=== PATIENT | female | born 1945 | race Caucasian/White ===

== ENCOUNTER 2023-09-11 18:28 | Emergency (ER) | payer MEDICARE, BC, SELFPAY ==
[2023-09-11 18:45] VITALS: BP 141/70; PULSE 83; RESP 24; TEMP 36.4; O2SAT 96; BMI 30.2
--- NOTE | 2023-09-11 19:01 | XR_ITS ---
Final Report Patient: QUAN LAGUNAS Facility:?[facility] Patient ID:?[id number] Site Patient ID:?[id number]. Site :?[id number] Study:?XRay Chest 2 VIEW-09/11/2023 7:17:03 PM Ordering Physician:JUAN ANTONIO Final Report: INDICATION: Cough, dyspnea. TECHNIQUE: Chest 2 views. COMPARISON: None. FINDINGS: Cardiovascular and mediastinum: Heart size and vasculature are normal in caliber and appearance. Lungs and pleural spaces: Bibasilar atelectasis. No sign of infiltrate or mass. No sign of pleural effusion. No pneumothorax. Bones and soft tissues: No significant findings. IMPRESSION: Bibasilar atelectasis. Otherwise, no acute or significant findings. Dictated by Tc Lorenzo MD @ 09/11/2023 7:32:47 PM (Electronic Signature)
--- NOTE | 2023-09-11 19:59 | ED_ITS ---
HPI - General Adult General Chief complaint: Shortness of Breath/Dyspnea Stated complaint: shortness of breath, low oxygen Time Seen by Provider: 09/11/23 19:45 History of Present Illness HPI narrative: This 78-year-old female comes in with 2 other family members. She does live alone and states that she has had a cough for the past 10 years or so but in the last month it has become significantly worse. She arrives with normal vital signs and oximetry at 96% on room air. She reports keep getting coughing fits at which time her oximetry at home reduce is down into the 70s%. She does not report any fevers. She does occasionally cough up some whitish sputum. 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 She is not a smoker. She has been taking albuterol but is not on any other breathing medications. She states that the albuterol makes her cough but then it does seem to help for a while but does not last very long. She does have an appointment with a social media project manager in about 3 days. Related Data Home Medications Medication Instructions Recorded Confirmed albuterol sulfate 90 mcg/actuation inhalation 09/11/23 aerosol inhaler (Ventolin HFA) atorvastatin 40 mg tablet 40 mg PO DAILY 09/11/23 09/11/23 hydrochlorothiazide 25 mg tablet 25 mg PO DAILY 09/11/23 09/11/23 losartan 25 mg tablet 25 mg PO DAILY 09/11/23 09/11/23 losartan 50 mg tablet 50 mg PO DAILY 09/11/23 09/11/23 omeprazole 10 mg capsule,delayed 10 mg PO DAILY 09/11/23 09/11/23 release prednisolone acetate 1 % eye drp ophthalmic (eye) 09/11/23 drops,suspension trazodone 50 mg tablet 100 mg PO QPM PRN 09/11/23 09/11/23 Previous Rx's Medication Instructions Recorded acetaminophen 300 mg-codeine 30 mg 1 tab PO Q6H PRN pain #20 tabs 09/11/23 tablet azithromycin 250 mg tablet 250 mg PO DAILY #6 tabs 09/11/23 (Zithromax Z-Bay) methylprednisolone 4 mg tablets in See Rx Instructions PO .COMPLEX 09/11/23 a dose pack (Medrol (Bay)) #21 ea Review of Systems Status of ROS: Reports: 10 or more systems reviewed and unremarkable except as noted in History and below Narrative: Constitutional: No fevers, no weight gain or loss. Eyes: No discharge. No vision changes. HENT: No congestion, no sore throat, no ear pain. Cardiovascular: No chest pain, no palpitations. Respiratory: Coughing fits with associated shortness of breath. Gastrointestinal: No abdominal pain, no vomiting, no diarrhea. Genitourinary: No dysuria, no hematuria. Musculoskeletal: Normal range of motion. Skin: No rashes, no pruritis. Neurological: No dizziness, weakness, sensory change, speech change. Endo/Heme/Allergies: No bruising or bleeding. No polydipsia. Pysch: no suicidality, no anxiety, no insomnia. All other systems reviewed and are negative. PFSH [facility] Social History Smoking Status: Never smoker Do you use any of these nicotine containing products: None Second hand tobacco smoke exposure: No How often do you have a drink containing alcohol: never How often do you have six or more drinks on one occasion: Never AUDIT-C Alcohol total score: 0 Non-prescribed substance use: denies use service: No Exam Narrative: Exam Narrative: Constitutional: Well-developed, well-nourished, no acute distress. HEENT: Normocephalic, atraumatic. Neck: Normal range of motion. Nontender. Supple. Heart: Regular. No murmurs. Normal rate. Intact distal pulses. Lungs: Clear to auscultation. No wheezes, rhonchi, or rales. Frequent nonproductive cough occurring pretty much every time she begins to talk. Abdomen: Normal bowel sounds. Nontender. No rebound tenderness. Genitalia: Deferred. Back: No midline tenderness. Normal range of motion. Extremities: Normal range of motion. No injury. Skin: Intact. No rash. Warm. No erythema or pallor. Neurologic: No altered sensation. No weakness. Alert and oriented. Psychiatric: No suicidality. No anxiety or depression. No insomnia. Nursing notes and vitals signs are reviewed. Const: Vital Signs, click to edit/add: Vital Signs - 24 hr 09/11/23 18:45 Temperature 97.6 F Pulse Rate [Pulse Oximeter] 83 Respiratory Rate 24 Blood Pressure [Ri ght Upper Arm] 141/70 H Pulse Oximetry 96 Oxygen Delivery Me thod Room Air Course Vital Signs Vital signs: Initial Vital Signs Temperature 97.6 F 09/11/23 18:45 Temperature Source Temporal Artery Scan 09/11/23 18:45 Pulse Rate 83 09/11/23 18:45 Pulse Rhythm Regular 09/11/23 18:45 Pulse Strength 3+ Normal 09/11/23 18:45 Respiratory Rate 24 09/11/23 18:45 Blood Pressure 141/70 H 09/11/23 18:45 Blood Pressure Mean 93 09/11/23 18:45 Blood Pressure Position Sitting 09/11/23 18:45 Pulse Oximetry 96 09/11/23 18:45 Oxygen Delivery Method Room Air 09/11/23 18:45 Vital Signs Temperature 97.6 F 09/11/23 18:45 Pulse Rate 83 09/11/23 18:45 Respiratory Rate 24 09/11/23 18:45 Blood Pressure 141/70 H 09/11/23 18:45 Pulse Oximetry 96 09/11/23 18:45 Oxygen Delivery Method Room Air 09/11/23 18:45 Temperature 97.6 F 09/11/23 18:45 Pulse Rate 83 09/11/23 18:45 Respiratory Rate 24 09/11/23 18:45 Blood Pressure 141/70 H 09/11/23 18:45 Pulse Oximetry 96 09/11/23 18:45 Oxygen Delivery Method Room Air 09/11/23 18:45 Medications Administered Medications: Discontinued Medications Generic Name Dose Route Start Last Admin Trade Name Freq PRN Reason Stop Dose Admin Albuterol/Ipratropium 1 neb 09/11/23 19:58 09/11/23 20:16 Iprat-Albut 0.5-2.5 Mg/3 Ml Neb IH 09/11/23 19:59 1 neb ONCE ONE Administration Dexamethasone 10 mg 09/11/23 19:58 09/11/23 20:16 Dexamethasone 10 Mg/Ml Inj PO 09/11/23 19:59 10 mg ONCE ONE Administration Medical Decision Making [facility] Narrative Medical decision making narrative: This 78-year-old female comes in with coughing fits causing hypoxia and short ness of breath. She does not report any fever. She does arrive with normal vital signs and her lung sounds are reassuring. She states that she does get some relief from her inhaler. She does have a spacer on her inhaler. She did receive a DuoNeb treatment which did bring more relief to her symptoms. She also received an oral dose of dexamethasone 10 mg. Chest x-ray shows no acute findings except for some bibasilar atelectasis. Lab results show a mild anemia but otherwise her lab results are mostly reassuring and nothing in need of immediate attention. The patient does have a follow-up appointment with a social media project manager in 3 days. I did prescribe a Medrol Dosepak and Tylenol 3 for cough suppressant. I encouraged her to use [id number] cough medicine also. She also received a prescription for Zithromax but I instructed her to hold this and consult with her social media project manager. Lab Data Labs: Lab Results 09/11/23 Range/Units 20:07 WBC 8.56 (4.50-11.00) K/uL RBC 4.59 (4.00-5.20) m/uL Hgb 10.4 L (12.0-16.0) gm/dL Hct 33.8 (33.0-51.0) % MCV 74 L (80-100) fL MCH 23 L (26-34) pg MCHC 31 L (32-36) gm/dL RDW Coeff of Benigno 17.6 H (11.5-15.5) % Plt Count 312 (140-440) K/uL Neut % (Auto) 81.0 H (42.0-72.0) % Lymph % (Auto) 9.1 L (20-44) % Nolan % (Auto) 7.9 (0.0-11.0) % Eos % (Auto) 0.7 (0.0-7.0) % Baso % (Auto) 0.5 (0.0-3.0) % Neut # (Auto) 6.90 (1.7-7.0) K/uL Lymph # (Auto) 0.80 L (0.90-2.90) K/uL Nolan # (Auto) 0.70 (0.00-0.90) K/UL Eos # (Auto) 0.06 (0.00-0.50) K/uL Baso # (Auto) 0.04 (0.00-0.30) K/uL Abs Immat Gran (auto) 0.07 (0.00-0.30) K/uL Imm/Tot Granulo (auto) 0.8 % Diff Slide Review Acceptable Review (Acceptable) VBG pH 7.456 H (7.32-7.43) VBG pCO2 33 L (40-50) mmHG VBG pO2 80.2 H (25-47) mmHG VBG HCO3 23 (21-28) mmol/L Sodium 131 L (135-149) mmol/L Potassium 3.9 (3.6-5.1) mmol/L Chloride 99 (96-114) mmol/L Carbon Dioxide 22 (20-32) mmol/L Anion Gap 10 (7-15) mEq/L BUN 15 (7-30) mg/dL Creatinine 1.0 (0.5-1.5) mg/dL Estimated Creat Clear 46.54 Estimated GFR 58 ml/min Glucose 103 (60-115) mg/dL Calcium 9.8 (8.4-10.6) mg/dL NT-Pro-B Natriuret Pep 130 pg/mL SARS-CoV-2 (PCR) Negative SARS-CoV-2 (Negative) Influenza Type A (PCR) Negative PCR FLU A (Negative) Influenza Type B (PCR) Negative PCR FLU B (Negative) RSV (PCR) Negative PCR RSV (Negative) Discharge Plan Discharge Clinical Impression: Asthma with acute exacerbation Patient Disposition: Home w/ Parent or Adult Condition: Improved Additional Instructions: Take medication as prescribed and needed. Follow up with social media project manager clinic as scheduled. Return if worsening. Prescriptions: New azithromycin [Zithromax Z-Bay] 250 mg tablet 250 mg PO DAILY Qty: 6 0RF acetaminophen-codeine 300-30 mg tablet 1 tab PO Q6H PRN (Reason: pain) Qty: 20 0RF methylprednisolone [Medrol (Bay)] 4 mg tablets,dose pack See Rx Instructions .ROUTE .COMPLEX Qty: 21 0RF Rx Instructions: orally per package directions No Action losartan 50 mg tablet 50 mg PO DAILY atorvastatin 40 mg tablet 40 mg PO DAILY trazodone 50 mg tablet 100 mg PO QPM PRN prednisolone acetate 1 % drops,suspension ophthalmic (eye) omeprazole 10 mg capsule,delayed release(DR/EC) 10 mg PO DAILY losartan 25 mg tablet 25 mg PO DAILY hydrochlorothiazide 25 mg tablet 25 mg PO DAILY albuterol sulfate [Ventolin HFA] 90 mcg/actuation HFA aerosol inhaler inhalation Follow Up/Referrals: Lety Ingram MD [Primary Care Provider] - Stand Alone Forms: [facility] Info Instructions
[2023-09-11] MEDS: dexAMETHasone 10 MG/ML inj PO (20:16)
[2023-09-11] MEDS: IPRAT-ALBUT 0.5-2.5 MG/3 ML NEB 1 NEB IH (20:16)
[2023-09-11 20:21] LABS: HCO3 VBG 23 mmol/L (21-28); PCO2 VBG 33 mmHG (40-50); PO2 VBG 80.2 mmHG (25-47); pH VBG 7.456 (7.32-7.43)
[2023-09-11 20:32] LABS: Basophils Absolute Auto 0.04 K/uL (0.00-0.30); Basophils Percent Auto 0.5 % (0.0-3.0); Eosinophils Absolute Auto 0.06 K/uL (0.00-0.50); Eosinophils Percent Auto 0.7 % (0.0-7.0); Hematocrit 33.8 % (33.0-51.0); Hemoglobin* 10.4 gm/dL (12.0-16.0); Immature Granulocytes Abs Auto 0.07 K/uL (0.00-0.30); Immature Granulocytes Pct Auto 0.8 %; Lymphocytes Percent Auto 9.1 % (20-44); Mean Corpuscular HGB Conc 31 gm/dL (32-36); Mean Corpuscular Hemoglobin 23 pg (26-34); Mean Corpuscular Volume 74 fL (80-100); Monocytes Percent Auto 7.9 % (0.0-11.0); Platelet Count* 312 K/uL (140-440); RDW Coefficient of Variation % 17.6 % (11.5-15.5); Red Blood Count 4.59 m/uL (4.00-5.20); White Blood Count* 8.56 K/uL (4.50-11.00)
[2023-09-11 20:36] LABS: Slide Review Reflex Yes
[2023-09-11 20:53] LABS: Slide Review Acceptable Review (Acceptable)
[2023-09-11 20:58] LABS: Chloride* 99 mmol/L (96-114); Potassium* 3.9 mmol/L (3.6-5.1); Sodium* 131 mmol/L (135-149)
[2023-09-11 21:00] LABS: Est. Creatinine Clearance* 46.54; Estimated Glomerular Filt Rate 58 ml/min
[2023-09-11 21:01] LABS: Blood Urea Nitrogen* 15 mg/dL (7-30); Calcium* 9.8 mg/dL (8.4-10.6); Carbon Dioxide* 22 mmol/L (20-32); Glucose* 103 mg/dL (60-115)
[2023-09-11 21:03] LABS: PCR FLU A Negative PCR FLU A (Negative); PCR FLU B Negative PCR FLU B (Negative); PCR RSV Negative PCR RSV (Negative); SARS PCR* Negative SARS-CoV-2 (Negative)
[2023-09-11 21:14] LABS: Anion Gap 10 mEq/L (7-15); NT Pro B Type NatriureticPept* 130 pg/mL
== END 2023-09-11 22:27 | disposition home or self-care (01) ==
PROVIDERS: Family Medicine; Emergency Provider Emergency Medicine Emergency Medical Services; PCP Family Medicine
DX: J45.901 Unspecified asthma with (acute) exacerbation (principal)
CPT/HCPCS: 36415; 71046; 80048; 82803; 83880; 85025; 87631; 94640; 99284; J1100

== ENCOUNTER 2023-11-14 17:30 | Outpatient (CLI) | payer MEDICARE, BC, SELFPAY | END 2023-11-14 17:31 | disposition home or self-care (01) | LOC: NFLDREF 11-15 06:18 | PROVIDERS: PCP Family Medicine; Referring Provider Family Medicine; Visit Provider Physician Assistant | DX: N39.0 Urinary tract infection, site not specified (principal); B96.4 Proteus (mirabilis) (morganii) as the cause of diseases classified elsewhere | CPT/HCPCS: 87086; 87186 ==

== ENCOUNTER 2024-01-03 13:09 | Emergency (ER) | payer MEDICARE, BC, SELFPAY ==
[2024-01-03] VITALS (17 sets, daily range): BP systolic 136–149; BP diastolic 69–85; PULSE 77–85; RESP 16–18; TEMP 36; O2SAT 96–100; BMI 32.1
--- NOTE | 2024-01-03 13:28 | ED.GENADULT ---
HPI - General Adult General Chief complaint: Chest Pain Stated complaint: UC ref-lightheaded, chst pain, curling fingers Time Seen by Provider: 01/03/24 13:23 History of Present Illness HPI narrative: Referred by PCP to ED. Has been having chest pain - heart burn feeling and elevated heart rate. Getting sensation in both hands where her hands are being forced to curl in. Has been off/on since August. but has been more lightheaded recently. Usually only has it with activity 78-year-old woman presenting to the emergency department with a number of concerns. Recommended by primary for evaluation. Intermittent feelings of ?heartburn? and sternal chest pressure. When I ask her about rapid heart rate she denies this. Did feel lightheaded also yesterday while throwing the ball to her dog. This was transient. Intermittently will have feelings where her hands have the need or do curl in kind of cramp. Can happen independent of activity. Does have a history of vocal cord dysfunction to some degree. Unclear whether this is primarily related to postnasal drip for what sounds like was initiated on a nasal steroid, or esophageal reflux or a finding of a what sounds like mucous retention cyst in the area of her vocal cords. She has been told that needs to probably see speech therapy. The more she talks the more difficulty or cough she experiences. Is not exactly short of breath. She does recall being evaluated with a stress echocardiogram some years ago which she reports had to be aborted early because of low oxygen saturation. Was subsequently evaluated for pulmonary problem. Was diagnosed with asthma and then other findings as noted above. Recalls also history of unremarkable upper endoscopy. Able to locate records of echocardiogram from 02/15/2022 noted normal left ventricular size and mildly increased wall thickness Related Data Home Medications ?Medication ?Instructions ?Recorded ?Confirmed atorvastatin 40 mg tablet 40 mg PO DAILY 09/11/23 01/03/24 hydrochlorothiazide 25 mg tablet 25 mg PO DAILY 09/11/23 01/03/24 losartan 25 mg tablet 25 mg PO DAILY 09/11/23 01/03/24 losartan 50 mg tablet 50 mg PO DAILY 09/11/23 01/03/24 prednisolone acetate 1 % eye drp ophthalmic (eye) 09/11/23 11/14/23 drops,suspension trazodone 50 mg tablet 100 mg PO QPM PRN 09/11/23 01/03/24 budesonide-formoterol HFA 80 inhalation 11/14/23 11/14/23 mcg-4.5 mcg/actuation aerosol inhaler fluticasone propionate 50 1 spray intranasal DAILY 11/14/23 01/03/24 mcg/actuation nasal spray,suspension omeprazole 20 mg capsule,delayed 20 mg PO DAILY 11/14/23 01/03/24 release Allergies Allergy/AdvReac Type Severity Reaction Status Date / Time No Known Drug Allergies Allergy Verified 11/14/23 17:42 Review of Systems Status of ROS: Reports: 6 or more systems reviewed and unremarkable except as noted in History and below [facility] Social History Smoking Status: Never smoker Do you use any of these nicotine containing products: None Second hand tobacco smoke exposure: No How often do you have a drink containing alcohol: never How often do you have six or more drinks on one occasion: Never AUDIT-C Alcohol total score: 0 Non-prescribed substance use: denies use service: No Exam Narrative: Exam Narrative: Very pleasant. NAD. Appears to be experiencing focal effect as if a spasmodic dysphonia. Breathing easily though. Lungs seem to have trace scattered crepitus. Heart with regular rate and rhythm. Moving all extremities without notable difficulty. Well-perfused peripherally without edema. Skin is warm and dry. Not really with reproducible chest discomfort.abdomen is soft and nontender. Upper extremity pulses appear to be equal. Const: Vital Signs, click to edit/add: Vital Signs - 24 hr 01/03/24 13:15 01/03/24 14:31 01/03/24 14:34 Temperature 96.8 F L Pulse Rate 78 Pulse Rate [Left P ulse Oximeter] 79 Pulse Rate [orthos tatic lying Left P ulse Oximeter] Pulse Rate [orthos tatic sitting Left Pulse Oximeter] Pulse Rate [orthos tatic standing Lef t Pulse Oximeter] Respiratory Rate 18 Blood Pressure 138/69 Blood Pressure [Ri ght Upper Arm] 143/76 H Blood Pressure [or thostatic lying Ri ght Arm] Blood Pressure [or thostatic sitting Right Arm] Blood Pressure [or thostatic standing Right Arm] Pulse Oximetry 100 96 Oxygen Delivery Me thod Room Air 01/03/24 14:45 01/03/24 14:47 01/03/24 15:00 Temperature Pulse Rate 79 77 79 Pulse Rate [Left P ulse Oximeter] Pulse Rate [orthos tatic lying Left P ulse Oximeter] Pulse Rate [orthos tatic sitting Left Pulse Oximeter] Pulse Rate [orthos tatic standing Lef t Pulse Oximeter] Respiratory Rate 16 Blood Pressure 141/77 H Blood Pressure [Ri ght Upper Arm] Blood Pressure [or thostatic lying Ri ght Arm] Blood Pressure [or thostatic sitting Right Arm] Blood Pressure [or thostatic standing Right Arm] Pulse Oximetry 100 100 100 Oxygen Delivery Me thod Room Air 01/03/24 15:02 01/03/24 15:03 01/03/24 15:15 Temperature Pulse Rate 80 79 Pulse Rate [Left P ulse Oximeter] Pulse Rate [orthos tatic lying Left P ulse Oximeter] 80 Pulse Rate [orthos tatic sitting Left Pulse Oximeter] 82 Pulse Rate [orthos tatic standing Lef t Pulse Oximeter] 85 Respiratory Rate 16 Blood Pressure 140/78 H Blood Pressure [Ri ght Upper Arm] Blood Pressure [or thostatic lying Ri ght Arm] 136/83 Blood Pressure [or thostatic sitting Right Arm] 139/85 Blood Pressure [or thostatic standing Right Arm] 143/77 H Pulse Oximetry 100 100 Oxygen Delivery Me thod Room Air 01/03/24 15:15 01/03/24 15:16 01/03/24 15:20 Temperature Pulse Rate 81 83 80 Pulse Rate [Left P ulse Oximeter] Pulse Rate [orthos tatic lying Left P ulse Oximeter] Pulse Rate [orthos tatic sitting Left Pulse Oximeter] Pulse Rate [orthos tatic standing Lef t Pulse Oximeter] Respiratory Rate 16 16 Blood Pressure 149/75 H 136/83 Blood Pressure [Ri ght Upper Arm] Blood Pressure [or thostatic lying Ri ght Arm] Blood Pressure [or thostatic sitting Right Arm] Blood Pressure [or thostatic standing Right Arm] Pulse Oximetry 100 100 100 Oxygen Delivery Me thod Room Air Room Air 01/03/24 15:21 01/03/24 15:23 01/03/24 15:30 Temperature Pulse Rate 84 83 Pulse Rate [Left P ulse Oximeter] Pulse Rate [orthos tatic lying Left P ulse Oximeter] Pulse Rate [orthos tatic sitting Left Pulse Oximeter] Pulse Rate [orthos tatic standing Lef t Pulse Oximeter] Respiratory Rate 16 Blood Pressure 139/85 143/77 H Blood Pressure [Ri ght Upper Arm] Blood Pressure [or thostatic lying Ri ght Arm] Blood Pressure [or thostatic sitting Right Arm] Blood Pressure [or thostatic standing Right Arm] Pulse Oximetry 100 100 Oxygen Delivery Me thod Room Air 01/03/24 15:35 01/03/24 15:45 01/03/24 15:49 Temperature Pulse Rate 85 83 83 Pulse Rate [Left P ulse Oximeter] Pulse Rate [orthos tatic lying Left P ulse Oximeter] Pulse Rate [orthos tatic sitting Left Pulse Oximeter] Pulse Rate [orthos tatic standing Lef t Pulse Oximeter] Respiratory Rate Blood Pressure Blood Pressure [Ri ght Upper Arm] Blood Pressure [or thostatic lying Ri ght Arm] Blood Pressure [or thostatic sitting Right Arm] Blood Pressure [or thostatic standing Right Arm] Pulse Oximetry 100 99 100 Oxygen Delivery Me thod Documenting provider has reviewed patient's vital signs: yes Course Vital Signs Vital signs: Initial Vital Signs Temperature 96.8 F L 01/03/24 13:15 Temperature Source Temporal Artery Scan 01/03/24 13:15 Pulse Rate 79 01/03/24 13:15 Pulse Rhythm Regular 01/03/24 13:15 Pulse Strength 3+ Normal 01/03/24 13:15 Respiratory Rate 18 01/03/24 13:15 Blood Pressure 143/76 H 01/03/24 13:15 Blood Pressure Mean 98 01/03/24 13:15 Blood Pressure Position Sitting 01/03/24 13:15 Pulse Oximetry 100 01/03/24 13:15 Oxygen Delivery Method Room Air 01/03/24 13:15 Vital Signs Temperature 96.8 F L 01/03/24 13:15 Pulse Rate 79 01/03/24 13:15 Respiratory Rate 18 01/03/24 13:15 Blood Pressure 143/76 H 01/03/24 13:15 Pulse Oximetry 100 01/03/24 13:15 Oxygen Delivery Method Room Air 01/03/24 13:15 Temperature 96.8 F L 01/03/24 13:15 Pulse Rate 83 01/03/24 15:49 Respiratory Rate 16 01/03/24 15:21 Blood Pressure 143/77 H 01/03/24 15:23 Pulse Oximetry 100 01/03/24 15:49 Oxygen Delivery Method Room Air 01/03/24 15:21 Medical Decision Making MDM Narrative Medical decision making narrative: Numerous symptoms of longer standing duration here that I am struggling to associate. I think it is not unreasonable though to do broader lab work looking for any red flags of focus. Will look for evidence of cardiac ischemia/injury, pulmonary embolus, pneumothorax, CHF. Altered chemistries I suppose could contribute to some of this cramping she has been experiencing. Chest x-ray reviewed by me with some interstitial prominence. Radiology over-read as below Indication: Chest pain Comparison: Two-view chest September 11, 2023 Technique: Single AP view chest Findings: There is hyperinflation and chronic interstitial change. There is no focal consolidation, effusion, or pneumothorax. The cardiomediastinal silhouette is within normal limits. The bony thorax is grossly intact. Impression: No acute cardiopulmonary abnormality. Labs are overall reassuring although appears to have developed an anemia. Overall well during time in the emergency department without further event. See patient discharge plan for further discussion Medical Records Medical records reviewed: Yes I reviewed the patient's medical records Lab Data Lab results reviewed: Yes I reviewed the patient's lab results Labs: Lab Results 01/03/24 Range/Units 14:20 WBC 6.69 (4.50-11.00) K/uL RBC 4.20 (4.00-5.20) m/uL Hgb 9.7 L (12.0-16.0) gm/dL Hct 32.1 L (33.0-51.0) % MCV 76 L (80-100) fL MCH 23 L (26-34) pg MCHC 30 L (32-36) gm/dL RDW Coeff of Benigno 15.2 (11.5-15.5) % Plt Count 312 (140-440) K/uL Neut % (Auto) 74.8 H (42.0-72.0) % Lymph % (Auto) 10.6 L (20-44) % Yancey % (Auto) 10.5 (0.0-11.0) % Eos % (Auto) 2.2 (0.0-7.0) % Baso % (Auto) 0.4 (0.0-3.0) % Neut # (Auto) 5.00 (1.7-7.0) K/uL Lymph # (Auto) 0.70 L (0.90-2.90) K/uL Yancey # (Auto) 0.70 (0.00-0.90) K/UL Eos # (Auto) 0.15 (0.00-0.50) K/uL Baso # (Auto) 0.03 (0.00-0.30) K/uL Abs Immat Gran (auto) 0.10 (0.00-0.30) K/uL Imm/Tot Granulo (auto) 1.5 % D-Dimer Quant (PE/DVT) 0.36 (0.00-0.50) ug/ml Sodium 135 (135-149) mmol/L Potassium 4.0 (3.6-5.1) mmol/L Chloride 102 (96-114) mmol/L Carbon Dioxide 27 (20-32) mmol/L Anion Gap 6 L (7-15) mEq/L BUN 12 (7-30) mg/dL Creatinine 0.7 (0.5-1.5) mg/dL Estimated Creat Clear 44.80 Estimated GFR 90 ml/min Glucose 109 (60-115) mg/dL Calcium 9.7 (8.4-10.6) mg/dL Magnesium 2.2 (1.5-2.6) mg/dL Troponin I < 0.01 L (0.01-0.04) ng/mL C-Reactive Protein < 0.5 L (0.5-1.0) mg/dL ECG Data Attestation: I personally reviewed and interpreted this ECG as follows: (Normal sinus rhythm. Rate of 75. No prior) Discharge Plan Discharge Clinical Impression: Intermittent lightheadedness, Anemia Patient Disposition: Home w/ Parent or Adult Condition: Stable Additional Instructions: I am not sure what has been causing your constellation of symptoms. Certainly could be occurring independently and unrelated. Your hemoglobin has drifted down just a little bit. I would to discuss this with your primary care provider -- considering more evaluation as to reason and/or treatment. It is a microcytic anemia which would suggest iron deficiency somehow. Also might want to follow-up for further cardiac evaluation. This might include an echocardiogram and/or rhythm monitoring. Return for persistent increased chest pain, shortness of breath, worsening lightheadedness. Prescriptions: No Action omeprazole 20 mg capsule,delayed release(DR/EC) 20 mg PO DAILY budesonide-formoterol 80-4.5 mcg/actuation HFA aerosol inhaler inhalation Patient Comments: [NO ORIGINAL SIG] fluticasone propionate 50 mcg/actuation spray,suspension 1 spray intranasal DAILY losartan 50 mg tablet 50 mg PO DAILY atorvastatin 40 mg tablet 40 mg PO DAILY trazodone 50 mg tablet 100 mg PO QPM PRN prednisolone acetate 1 % drops,suspension ophthalmic (eye) losartan 25 mg tablet 25 mg PO DAILY hydrochlorothiazide 25 mg tablet 25 mg PO DAILY Follow Up/Referrals: Lety Ingram MD [Primary Care Provider] - Stand Alone Forms: [employer] Info Instructions
--- NOTE | 2024-01-03 13:53 | CRLHL7_ITS ---
For Patients: As a result of the Century Cures Act, medical imaging exams and procedure reports are released immediately into your electronic medical record. You may view this report before your referring provider. If you have questions, please contact your health care provider. Indication: Chest pain Comparison: Two-view chest September 11, 2023 Technique: Single AP view chest Findings: There is hyperinflation and chronic interstitial change. There is no focal consolidation, effusion, or pneumothorax. The cardiomediastinal silhouette is within normal limits. The bony thorax is grossly intact. Impression: No acute cardiopulmonary abnormality. Dictated by Hiren Gonzalez MD @ 01/03/2024 2:20:55 PM (Electronically Signed)
[2024-01-03 14:27] LABS: Basophils Absolute Auto 0.03 K/uL (0.00-0.30); Basophils Percent Auto 0.4 % (0.0-3.0); Eosinophils Absolute Auto 0.15 K/uL (0.00-0.50); Eosinophils Percent Auto 2.2 % (0.0-7.0); Hematocrit 32.1 % (33.0-51.0); Hemoglobin* 9.7 gm/dL (12.0-16.0); Immature Granulocytes Pct Auto 1.5 %; Lymphocytes Percent Auto 10.6 % (20-44); Mean Corpuscular HGB Conc 30 gm/dL (32-36); Mean Corpuscular Hemoglobin 23 pg (26-34); Mean Corpuscular Volume 76 fL (80-100); Monocytes Percent Auto 10.5 % (0.0-11.0); Neutrophils Percent Auto 74.8 % (42.0-72.0); Platelet Count* 312 K/uL (140-440); RDW Coefficient of Variation % 15.2 % (11.5-15.5); White Blood Count* 6.69 K/uL (4.50-11.00)
[2024-01-03 14:32] LABS: Slide Review Reflex No
[2024-01-03 14:45] LABS: Chloride* 102 mmol/L (96-114); Sodium* 135 mmol/L (135-149)
[2024-01-03 14:48] LABS: Creatinine* 0.7 mg/dL (0.5-1.5); Estimated Glomerular Filt Rate 90 ml/min
[2024-01-03 14:49] LABS: Anion Gap 6 mEq/L (7-15); Blood Urea Nitrogen* 12 mg/dL (7-30); Calcium* 9.7 mg/dL (8.4-10.6); Carbon Dioxide* 27 mmol/L (20-32); Glucose* 109 mg/dL (60-115); Magnesium* 2.2 mg/dL (1.5-2.6)
[2024-01-03 14:50] LABS: D Dimer Quantitative* 0.36 ug/ml (0.00-0.50)
[2024-01-03 14:57] LABS: C Reactive Protein* < 0.5 mg/dL (0.5-1.0)
[2024-01-03 16:35] LABS: Troponin I* < 0.01 ng/mL (0.01-0.04)
== END 2024-01-03 16:13 | disposition home or self-care (01) ==
PROVIDERS: Emergency Provider Family Medicine; PCP Family Medicine
DX: R42 Dizziness and giddiness (principal); D64.9 Anemia, unspecified
CPT/HCPCS: 36415; 71045; 80048; 83735; 84484; 85025; 85379; 86140; 93005; 99284; 99285

== ENCOUNTER 2024-03-24 09:55 | Outpatient (CLI) | payer MEDICARE, BC, SELFPAY | END 2024-03-24 09:56 | disposition home or self-care (01) | LOC: NFLDREF 03-27 04:43 | PROVIDERS: PCP Family Medicine; Referring Provider Family Medicine; Visit Provider Physician Assistant | DX: N39.0 Urinary tract infection, site not specified (principal) | CPT/HCPCS: 87086 ==

== ENCOUNTER 2024-03-28 16:00 | Outpatient (RCR) | payer MEDICARE, BC, SELFPAY | END 2024-07-09 07:37 | disposition home or self-care (01) | PROVIDERS: PCP Family Medicine; Visit Provider Orthopaedic Surgery | DX: M17.11 Unilateral primary osteoarthritis, right knee (principal); M25.561 Pain in right knee; M25.361 Other instability, right knee; M62.81 Muscle weakness (generalized); Z51.89 Encounter for other specified aftercare | CPT/HCPCS: 97110; 97161 ==

== ENCOUNTER 2024-10-10 09:45 | Outpatient (RCR) | payer MEDICARE, BC, SELFPAY | END 2025-02-07 23:59 | disposition home or self-care (01) | PROVIDERS: PCP Family Medicine | DX: K59.00 Constipation, unspecified (principal); N39.46 Mixed incontinence; N39.0 Urinary tract infection, site not specified; Z51.89 Encounter for other specified aftercare | CPT/HCPCS: 97110; 97161; 97535 ==

== ENCOUNTER 2024-11-25 13:04 | Outpatient (CLI) | payer MEDICARE, BC, SELFPAY | END 2024-11-25 13:05 | disposition home or self-care (01) | LOC: NFLDREF 12-04 00:45 | PROVIDERS: PCP Family Medicine; Referring Provider Family Medicine | DX: N30.01 Acute cystitis with hematuria (principal) | CPT/HCPCS: 87086 ==

== ENCOUNTER 2024-12-23 06:00 | Day surgery (SDC) | payer MEDICARE, BC, SELFPAY ==
[2024-12-23] VITALS (27 sets, daily range): BP systolic 90–177; BP diastolic 46–92; PULSE 53–91; RESP 10–18; TEMP 35.6–37; O2SAT 91–99; BMI 34.0
[2024-12-23] MEDS: ACETAMINOPHEN 500 MG TABLET 1000 MG PO ×3 (07:02→18:56)
[2024-12-23] MEDS: OXYCODONE (CR) 10 MG TAB.ER.12H PO (07:02)
[2024-12-23] MEDS: SODIUM CHLORIDE 0.9 % (FLUSH) 10 ML SYRINGE IVF (07:03)
[2024-12-23] MEDS: LACTATED RINGERS 1000 ML 1,000 ML 100 ML IV (07:03)
--- NOTE | 2024-12-23 07:03 | CRLHL7_ITS ---
For Patients: As a result of the Cures Act, medical imaging exams and procedure reports are released immediately into your electronic medical record. You may view this report before your referring provider. If you have questions, please contact your health care provider. 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 Bone alignment is normal. No sign of acute fracture. Postop changes are within normal limits. Dictated by Sadiq Noe MD @ 12/23/2024 11:00:33 AM (Electronically Signed)
[2024-12-23] MEDS: MIDAZOLAM HCL 1 MG/ML inj IVP (07:26)
--- NOTE | 2024-12-23 07:33 | W.PM.H&PU ---
History & Physical Update History & Physical Update H&P Reviewed and patient assessed: No changes noted
--- NOTE | 2024-12-23 07:35 | SUR.PREOP ---
TIME?OUT:? 0726 PT/RN/MDA?VERIFICATION?OF?SURGICAL?SITE,?PROCEDURE,?AND?CONSENT OBTAINED?PRIOR?TO?INVASIVE?PROCEDURE.
[2024-12-23] MEDS: fentaNYL 100 MCG/2 ML inj IVP (07:36)
[2024-12-23] MEDS: TRANEXAMIC ACID 100 MG/ML INJ 1000 MG IV (07:51)
[2024-12-23] MEDS: CEFAZOLIN 1 GM inj IVP (07:51)
--- NOTE | 2024-12-23 08:06 | SUR.OPER ---
PATIENT QUESTIONS ANSWERED SATISFACTORILY PREOPERATIVELY.? PATIENT BROUGHT TO OR #2 PER CART AFTER ADMINISTRATION OF A BLOCK.? Patient positioned supine on OR #2 bed.? The perioperative?team supported arms bilaterally on arm boards.?Final approval of positioning by surgeon.?
--- NOTE | 2024-12-23 08:18 | W.PM.NB ---
Nerve Block Nerve Block Time Seen by Provider: 07:26 Date Seen: 12/23/24 Type of block requested by surgeon for post-operative analgesia: adductor canal Side: right Time out performed: Yes Verification of patient name: Yes Verification of date of : Yes Site marking: site marked Name of person performing procedure: Cecilio Continuous monitoring Was continuous monitoring of O2 sat, B/P, cardiac cath rn, recorded every 15 minutes?: Yes Procedure Checklist: sterile prep, needles and gloves Ultrasound guided. Images saved: Yes Medications given in 5ml increments after negative aspiration: Marcaine %: 0.25 mL: 15 Needle gauge: 20 Precedex (mcg): 25 Patient tolerated procedure well: Yes Block Charges Block Charge (with Pro Fee): Femoral Nerve Use of Ultrasound Machine for Block: Yes- US Guidance/pain block
--- NOTE | 2024-12-23 08:18 | W.PM.NB ---
Nerve Block Nerve Block Time Seen by Provider: 07:26 Date Seen: 12/23/24 Type of block requested by surgeon for post-operative analgesia: geniculars Side: right Time out performed: Yes Verification of patient name: Yes Verification of date of : Yes Site marking: site marked Name of person performing procedure: Cecilio Continuous monitoring Was continuous monitoring of O2 sat, B/P, pressure dispatcher, recorded every 15 minutes?: Yes Procedure Checklist: sterile prep, needles and gloves Ultrasound guided. Images saved: Yes Medications given in 5ml increments after negative aspiration: Marcaine %: 0.25 mL: 9 Needle gauge: 25 Patient tolerated procedure well: Yes Block Charges Block Charge (with Pro Fee): Genicular Nerve Block
--- NOTE | 2024-12-23 08:51 | PM.ORPRC ---
Procedure Note Date of procedure: 12/23/24 Procedure: PREOPERATIVE DIAGNOSIS: 1. Right knee osteoarthritis, primary, severe POSTOPERATIVE DIAGNOSIS: 1. Right knee osteoarthritis, primary, severe PROCEDURE: 1. Right total knee arthroplasty - subvastus SURGEON: Golden Carey MD. BABBITTER: AMBER Renae - Of note, a skilled production assistant was critical for this case to aid in patient positioning, tissue retraction, limb manipulation/positioning, and closure. ANESTHESIA: Spinal anesthetic IMPLANTS: DePuy J&J all cemented TKA - Attune PS femur size 6 regular Size 5 tibia 5 poly spacer 38 mm patella TOURNIQUET: 90 minutes at 300 torr EBL: 50 ml COMPLICATIONS: None evident INDICATIONS: The patient is a pleasant 79-year-old female who has experienced severe right knee pain and difficulty bearing weight. Workup included x-rays which revealed severe osteoarthrosis in the knee. Given the deformity, the dysfunction, and the pain, as well as the failure of nonoperative management, recommendation was made for surgery. FINDINGS: Full-thickness chondral loss diffusely throughout the patellofemoral and medial compartment and to a lesser degree lateral compartment. Degenerative meniscus pathology medial greater than lateral. DESCRIPTION OF PROCEDURE: Following a thorough discussion of risks, benefits, and alternatives consent was obtained and the right knee was marked. The patient was brought to the operating room and placed supine on the operating table. Induction of anesthesia was undertaken. 2 g IV Ancef and 1 g tranexamic acid was administered within 1 hr of incision preoperatively. Proper time-out was performed identifying proper patient, site, procedure. The operative extremity was prepped and draped in the appropriate sterile fashion using ChloraPrep after the patient was positioned supine with all bony prominences well padded. A longitudinal, anterior, midline skin incision was made starting approximately 3cm proximal to the superior pole of the patella and advanced distal to the tibial tubercle. A subvastus approach was utilized. A medial subperiosteal sleeve was created with knife, menchaca elevator and curved osteotome. The retropatellar fatpad was resected and the synovium in the suprapatellar pouch excised to visualize the anterior femoral cortex. Femoral preparation was performed via an intramedullary guide. Step drill allowed access into the femoral canal. The distal cutting guide was placed with 5? of valgus and 10 mm cut on the distal femur. Femur was sized using a anterior referencing guide in 3? of external rotation. This found have a best fit with the sizing noted above. The 4 in 1 cutting block was then placed, and the distal femur shaped accordingly. The box cut was then created and the trial implant inserted to confirm appropriate fit. We turned our attention to the proximal tibia. Extramedullary guide was utilized for cutting with the goal of being 90 degree cut from the mechanical axis of the tibia in the varus/valgus plane utilizing tibial crest as the primary alignment. Initially a 4 mm resection was performed from the medial tibial plateau. Ultimately, balancing was achieved in both flexion and extension in both varus and valgus. The knee was able to achieve full extension as well comfortably. The patella was initially measured and found have a thickness of 21 mm. It was resected back to approximately 14 mm. It was sized to be a best fit with as noted above. This was drilled, trial placed. All trials were placed and found to have an excellent stability and balance. At this stage, trial implants were removed, the knee was thoroughly irrigated with normal saline, and the cement was mixed. After irrigation, the knee was thoroughly dried, and cement placed, with the real tibial and femoral implants placed along with the patella. Trial poly spacer was placed and confirmed to have excellent range of motion and full extension, and the real poly spacer opened and inserted. All extra cement was removed, and a 3 min Betadine soak performed. Finally, a final irrigation round with normal saline was performed. Closure performed with 0 Vicryl and #0 Stratafix for the quad tendon/retinaculum. 2-0 Vicryl for the subcutaneous and 4-0 Stratafix for subcuticular closure. Dressings were applied and the patient was awoken from anesthesia after the tourniquet deflated and transferred the PACU in stable condition. A skilled production assistant was critical for this case to aid in patient positioning, tissue retraction, bone exposure, limb manipulation/positioning, patient safety, and closure. PLAN: 1. Weight bear as tolerated operative extremity. 2. 23 hr perioperative antibiotics. 3. Ice. 4. PT/OT consults for ambulation assistance/mobility education. 5. Social work consult for discharge planning. 6. DVT prophylaxis with at SCDs and aspirin twice daily.
--- NOTE | 2024-12-23 09:25 | P.ANES_ITS ---
Anesthesia Charges Start Date/Time Anesthesia Start Date: 12/23/24 Anesthesia Start Time: 07:34 Stop Date/Time Anesthesia Stop Date: 12/23/24 Anesthesia Stop Time: 09:23 Summary Extremes of Age - Over 70 or under 1: MDA Coding CPT Codes CPT Codes: ANESTH KNEE JOINT SURGERY - 07848 ([id number]) P2 - PATIENT W/MILD SYST DISEASE, QK - SUPPORT SERVICES SPECIALIST 2-4 CNCRNT ANES PROC, QX - HYDROLOGIST SVC W/ MD MED DIRECTION Additional Codes: Summary - Extremes of Age - Over 70 or under 1: MDA ([id number])
--- NOTE | 2024-12-23 09:25 | W.ANESCHARGE ---
Anesthesia Charges Start Date/Time Anesthesia Start Date: 12/23/24 Anesthesia Start Time: 07:34 Stop Date/Time Anesthesia Stop Date: 12/23/24 Anesthesia Stop Time: 09:23 Summary Extremes of Age - Over 70 or under 1: MDA Coding CPT Codes CPT Codes: ANESTH KNEE JOINT SURGERY - 65932 ([id number]) P2 - PATIENT W/MILD SYST DISEASE, QK - IN FLIGHT CREW MEMBER 2-4 CNCRNT ANES PROC, QX - LABORATORY COURIER SVC W/ MD MED DIRECTION Additional Codes: Summary - Extremes of Age - Over 70 or under 1: MDA ([id number])
--- NOTE | 2024-12-23 09:26 | P.ANES_ITS ---
Anesthesia Charges Start Date/Time Anesthesia Start Date: 12/23/24 Anesthesia Start Time: 07:34 Stop Date/Time Anesthesia Stop Date: 12/23/24 Anesthesia Stop Time: 09:23 Coding CPT Codes CPT Codes: ANESTH KNEE ARTHROPLASTY - 21600 ([id number]) P2 - PATIENT W/MILD SYST DISEASE, QK - SURGICAL SERVICES MANAGER 2-4 CNCRNT ANES PROC, QX - INBOUND CUSTOMER SERVICE REPRESENTATIVE SVC W/ MD MED DIRECTION
--- NOTE | 2024-12-23 09:26 | W.ANESCHARGE ---
Anesthesia Charges Start Date/Time Anesthesia Start Date: 12/23/24 Anesthesia Start Time: 07:34 Stop Date/Time Anesthesia Stop Date: 12/23/24 Anesthesia Stop Time: 09:23 Coding CPT Codes CPT Codes: ANESTH KNEE ARTHROPLASTY - 31502 ([id number]) P2 - PATIENT W/MILD SYST DISEASE, QK - ELECTROMECHANICAL EQUIPMENT ASSEMBLER 2-4 CNCRNT ANES PROC, QX - CLINICAL REGISTERED NURSE SVC W/ MD MED DIRECTION
--- NOTE | 2024-12-23 10:00 | SUR.PHASEI ---
patient met discharge criteria per anesthesia
[2024-12-23] MEDS: HYDROmorphone 0.5 mg/0.5 ml inj IVP (10:51)
[2024-12-23] MEDS: LACTATED RINGERS 1000 ML 1,000 ML 75 ML IV (10:57)
[2024-12-23] MEDS: OXYCODONE 5 MG TABLET PO ×5 (11:58→23:59)
[2024-12-23] MEDS: CEFAZOLIN 2 GM in 0.9 % SODIUM CHLORIDE Mini-bag 100 ML IVPB ×2 (14:15→21:19)
--- NOTE | 2024-12-23 15:16 | PC.NURSE ---
Pt. VS stable throughout shift, pain 3-4/10, verbalized understanding and needs for pain meds. Pt. ambulated to the BR, up in the chair resting. Moved with x1 assist. Pt. worked with PT. Tolerating regular diet, denies nausea, itching. Dressing CDI. Ice over incision site.
--- NOTE | 2024-12-23 15:44 | PM.IMCN1 ---
Date of Consult Patient: Monica Patient Consult date: 12/23/24 Requesting Physician: Orthopedics Primary Care Provider: Lety Ingram MD Consult Narrative Narrative: Lisbet Sinha is a 79 year old female admitted to the hospital for right total knee arthroplasty. Procedure performed by Dr. Carey. No complications. He requests medical consultation for management medical problems. Patient reports doing well postoperatively. She is having some knee pain which is adequately managed. She was feeling well preoperatively. No significant medical problems identified at her preop evaluation. She has had previous joint replacements without complications. No problems with anesthesia, bleeding or clotting. Review of Systems Narrative: She reports a tendency towards constipation. She normally manages this with Metamucil. No recent respiratory problems. [facility] Medical History (Updated 12/23/24 @ 15:53 by Mark Gandara MD) Anemia ?D64.9 - Anemia, unspecified (ICD-10) Anemia ?D64.9 - Anemia, unspecified (ICD-10) Constipation ?K59.00 - Constipation, unspecified (ICD-10) Asthma ?J45.909 - Unspecified asthma, uncomplicated (ICD-10) Paroxysmal tachycardia ?I47.9 - Paroxysmal tachycardia, unspecified (ICD-10) Unspecified hemorrhoids without mention of complication ?K64.9 - Unspecified hemorrhoids (ICD-10) Shingles ?B02.9 - Zoster without complications (ICD-10) Stress incontinence in female ?N39.3 - Stress incontinence (female) (male) (ICD-10) Insomnia ?G47.00 - Insomnia, unspecified (ICD-10) Primary osteoarthritis of right knee ?M17.11 - Unilateral primary osteoarthritis, right knee (ICD-10) History of colon polyps ?Z86.0100 - Personal history of colon polyps, unspecified (ICD-10) Gastroesophageal reflux disease with esophagitis ?K21.00 - Gastro-esophageal reflux disease with esophagitis, without bleeding (ICD-10) Other and unspecified hyperlipidemia ?E78.5 - Hyperlipidemia, unspecified (ICD-10) 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 ?D04.5 - Carcinoma in situ of skin of trunk (ICD-10) Basal cell carcinoma (BCC) of skin of left lower extremity including hip ?C44.719 - Basal cell carcinoma of skin of left lower limb, including hip (ICD-10) 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 - Localized scleroderma [morphea] (ICD-10) Paroxysmal SVT (supraventricular tachycardia) ?I47.10 - Supraventricular tachycardia, unspecified (ICD-10) Hypertension ?I10 - Essential (primary) hypertension (ICD-10) Surgical History Status post right knee replacement ?Z96.651 - Presence of right artificial knee joint (ICD-10) History of phacoemulsification of cataract of both eyes with intraocular lens implantation ?Z98.41 - Cataract extraction status, right eye (ICD-10) ?Z98.42 - Cataract extraction status, left eye (ICD-10) ?Z96.1 - Presence of intraocular lens (ICD-10) History of total knee arthroplasty ?Z96.659 - Presence of unspecified artificial knee joint (ICD-10) History of hysterectomy ?Z90.710 - Acquired absence of both cervix and uterus (ICD-10) S/P left knee arthroscopy (07/20/00) ?Z98.890 - Other specified postprocedural states (ICD-10) History of cholecystectomy ?Z90.49 - Acquired absence of other specified parts of digestive tract (ICD-10) H/O hemorrhoidectomy ?Z98.890 - Other specified postprocedural states (ICD-10) History of total left hip arthroplasty (2011) ?Z96.642 - Presence of left artificial hip joint (ICD-10) History of total right hip arthroplasty ?Z96.641 - Presence of right artificial hip joint (ICD-10) H/O colonoscopy ?Z98.890 - Other specified postprocedural states (ICD-10) H/O endoscopy ?Z98.890 - Other specified postprocedural states (ICD-10) H/O esophagogastroduodenoscopy ?Z98.890 - Other specified postprocedural states (ICD-10) Family History (Updated 12/23/24 @ 15:54 by Mark Gandara MD) Mother Breast cancer Diabetes High blood pressure Aunt Breast cancer Grandmother Breast cancer Brother Diabetes Father High blood pressure Social History (Updated 12/23/24 @ 15:55 by Mark Gandara MD) Narrative: She lives alone in [place]. She can live on 1 level in her home. Her 2 daughters will be assisting her of during her 1st week and her sister will come to a sister in her 2nd week postop. She does not smoke or drink alcohol What is your current living situation?: I presently have a place to live Problems where you live: no known problems In the past 12 months, utilities in danger of being shut off: no In past 12 months, lack of transportation kept you from medical appts, meetings, work, or getting things needed for daily living: no In the past 12 mos, have been you worried that your food would run out before you had money to buy more?: never true In the past 12 mos, the food you bought just didn't last and you didn't have money to buy more?: never true Smoking Status: Never smoker Do you use any of these nicotine containing products: None Second hand tobacco smoke exposure: No How often do you have a drink containing alcohol: never How often do you have six or more drinks on one occasion: Never AUDIT-C Alcohol total score: 0 Non-prescribed substance use: denies use Caffeine: No How often does anyone, including family, friends and others, physically hurt you: never How often does anyone, including family, friends and others, insult or talk down to you: never How often does anyone, including family, friends and others, threaten you with harm: never How often does anyone, including family, friends and others, scream or curse at you: never service: No Meds Home Medications and Allergies Home Medications ?Medication ?Instructions ?Recorded ?Confirmed ?Type atorvastatin 40 mg tablet 40 mg PO DAILY 09/11/23 12/23/24 History hydrochlorothiazide 25 mg tablet 25 mg PO DAILY 09/11/23 12/23/24 History losartan 25 mg tablet 50 mg PO DAILY 09/11/23 12/23/24 History budesonide-formoterol HFA 80 2 puff inhalation QID PRN 11/14/23 12/23/24 History mcg-4.5 mcg/actuation aerosol inhaler fluticasone propionate 50 1 spray intranasal DAILY 11/14/23 12/23/24 History mcg/actuation nasal spray,suspension betamethasone, augmented 0.05 % applic topical DAILY PRN 10/18/24 11/25/24 History topical cream estradiol 0.01% (0.1 mg/gram) vaginal 10/18/24 11/25/24 History vaginal cream famotidine 20 mg tablet (Pepcid AC) 20 mg PO QDAY 10/18/24 12/23/24 History omeprazole 40 mg capsule,delayed 40 mg PO DAILY 10/18/24 12/23/24 History release psyllium husk 0.4 gram capsule 0.4 g PO QDAY 11/25/24 12/23/24 History (Metamucil) trazodone 50 mg tablet 50 mg PO QPM PRN 11/25/24 12/23/24 History albuterol sulfate 90 mcg/actuation 2 inh inhalation Q4H PRN 12/20/24 12/23/24 History aerosol inhaler acetaminophen 500 mg capsule 500 - 1,000 mg (1 - 2 x 500 mg) PO 12/23/24 Rx Q6H PRN #100 caps aspirin 81 mg tablet,delayed 81 mg PO BID #60 tabs 12/23/24 Rx release olopatadine 0.2 % eye drops 1 drp ophthalmic (eye) DAILY 12/23/24 12/23/24 History (Pataday Once Daily Relief) sennosides 8.6 mg-docusate sodium 1 - 4 tab-cap (1 - 4 x 8.6-50 mg) 12/23/24 Rx 50 mg tablet (Senna-S) PO BID PRN constipation #60 tabs Allergies Allergy/AdvReac Type Severity Reaction Status Date / Time No Known Drug Allergies Allergy Verified 12/23/24 06:25 Exam Narrative: Exam Narrative: She is alert and appears in no distress. She gives her own history. Respirations are clear to auscultation. No wheezing. Cardiovascular: S1, S2, regular rate and rhythm. No murmur gallop or rub. Abdomen: Bowel sounds active. Abdomen is soft without tenderness. Extremities without edema. Good peripheral pulses. Good strength and sensation in both feet and ankles. Const: Vital Signs, click to edit/add: Vital Signs - 24 hr 12/23/24 07:00 12/23/24 07:26 12/23/24 07:30 Temperature 97.5 F L Pulse Rate 67 59 L 62 Pulse Rate [Pulse Oximeter] Respiratory Rate 16 16 Blood Pressure 177/92 H 155/85 H 144/74 H Blood Pressure [Le ft Arm] Blood Pressure [Ri ght Arm] Pulse Oximetry 99 99 99 Oxygen Delivery Me thod Room Air Room Air Room Air 12/23/24 09:18 12/23/24 09:25 12/23/24 09:30 Temperature 98.1 F 98.1 F 98.1 F Pulse Rate 62 59 L 56 L Pulse Rate [Pulse Oximeter] Respiratory Rate 12 10 L 10 L Blood Pressure 90/58 L 103/65 116/69 Blood Pressure [Le ft Arm] Blood Pressure [Ri ght Arm] Pulse Oximetry 91 91 91 Oxygen Delivery Mt thod Room Air Room Air Room Air 12/23/24 09:35 12/23/24 09:40 12/23/24 09:45 Temperature 98.1 F 98.1 F 97.3 F L Pulse Rate 55 L 55 L 55 L Pulse Rate [Pulse Oximeter] Respiratory Rate 10 L 10 L 10 L Blood Pressure 121/70 123/74 124/74 Blood Pressure [Le ft Arm] Blood Pressure [Ri ght Arm] Pulse Oximetry 91 91 92 Oxygen Delivery Me thod Room Air Room Air Room Air 12/23/24 09:54 12/23/24 10:04 12/23/24 10:15 Temperature 96.1 F L 96.1 F L 96.1 F L Pulse Rate 55 L 59 L Pulse Rate [Pulse Oximeter] 55 L Respiratory Rate 16 16 16 Blood Pressure 137/77 147/84 H Blood Pressure [Le ft Arm] Blood Pressure [Ri ght Arm] 137/77 Pulse Oximetry 94 94 94 Oxygen Delivery Mt thod Room Air Room Air Room Air 12/23/24 10:30 12/23/24 10:45 12/23/24 11:00 Temperature 96.1 F L 96.1 F L 96.4 F L Pulse Rate 57 L 56 L 53 L Pulse Rate [Pulse Oximeter] Respiratory Rate 16 16 16 Blood Pressure 157/82 H 128/74 141/78 H Blood Pressure [Le ft Arm] Blood Pressure [Ri ght Arm] Pulse Oximetry 94 94 93 Oxygen Delivery Me thod Room Air Room Air Room Air 12/23/24 11:16 12/23/24 11:30 12/23/24 12:00 Temperature 96.1 F L 97.5 F L 97.5 F L Pulse Rate 55 L 57 L 62 Pulse Rate [Pulse Oximeter] Respiratory Rate 16 16 16 Blood Pressure 137/77 155/65 H 139/46 L Blood Pressure [Le ft Arm] Blood Pressure [Ri ght Arm] Pulse Oximetry 94 95 94 Oxygen Delivery Me thod Room Air Room Air Room Air 12/23/24 13:00 12/23/24 13:33 12/23/24 14:00 Temperature 96.6 F L 97.9 F Pulse Rate 60 67 Pulse Rate [Pulse Oximeter] Respiratory Rate 14 16 Blood Pressure 149/86 H 135/75 Blood Pressure [Le ft Arm] 149/86 H Blood Pressure [Ri ght Arm] Pulse Oximetry 93 94 Oxygen Delivery Me thod Room Air Room Air Documenting provider has reviewed patient's vital signs: yes Assessment and Plan Assessment and plan (1) Status post right knee replacement: Problem comment: Dr. Carey 12/23/2024 no complications Status: Acute (2) Asthma: Problem comment: Currently doing well. Continue home inhaler use. Status: Acute (3) Hypertension: Problem comment: Resume blood pressure medications as tolerated Status: Acute (4) Constipation: Problem comment: Add senna to Metamucil for management of acute on chronic constipation Status: Acute (5) Anemia: Problem comment: Patient has borderline low hemoglobin with history of anemia and also history of recurrent blood donations. I recommended she take supplemental iron after surgery and hold off on blood donation until her hemoglobin has returned to normal. Status: Acute Plan Patient is admitted to the hospital for postoperative management of pain, postoperative therapy, monitoring of chronic medical problems, hypertension, asthma, bowel and bladder concerns. Anticipate discharge to home tomorrow with daughters. Total Time Spent Total Time Spent: Total time spent today is 40 minutes in reviewing outside records, coordination of care and discussing with patient ongoing management of knee surgery, pain management, bowel management, anemia management.
[2024-12-23] MEDS: PSYLLIUM HUSK (WITH SUGAR) 12 GM PACKET PO (16:00)
[2024-12-23] MEDS: FAMOTIDINE 20 MG TABLET PO (16:00)
[2024-12-23] MEDS: ASPIRIN 81 MG TABLET EC PO (21:14)
[2024-12-23] MEDS: SENNOSIDES 1 TAB TABLET 2 TAB PO (21:14)
[2024-12-23] MEDS: TRAZODONE HCL 50 MG TABLET PO (21:15)
[2024-12-23] MEDS: CALCIUM CARBONATE 500 MG CHEW PO (21:35)
[2024-12-23] MEDS: MAG HYDROX/ALUMINUM HYD/SIMETH 30 ML ORAL.SUSP PO (22:04)
--- NOTE | 2024-12-23 22:49 | PC.NURSE ---
Patient vitally stable and up with Ax1 post surgery. Not reporting pain or nausea. Uses call light appropriately and taking in fluids. Patient reporting pain with laying in bed. PRN pain medications administered as requested. Saline locked. IV antibiotics completed as ordered. Patient having some indigestion when laying in bed, PRN TUMS and Maalox given for comfort. Nursing to continue to monitor.
[2024-12-24] MEDS: ONDANSETRON 2 MG/ML inj 4 MG IVP ×2 (01:53→07:34)
[2024-12-24 03:30] VITALS: BP 160/76; PULSE 82; RESP 16; TEMP 36.8; O2SAT 93
[2024-12-24] MEDS: CEFAZOLIN 2 GM in 0.9 % SODIUM CHLORIDE Mini-bag 100 ML IVPB (06:42)
[2024-12-24 06:43] LABS: Basophils Absolute Auto 0.03 K/uL (0.00-0.30); Basophils Percent Auto 0.3 % (0.0-3.0); Eosinophils Absolute Auto 0.01 K/uL (0.00-0.50); Eosinophils Percent Auto 0.1 % (0.0-7.0); Hematocrit 32.8 % (33.0-51.0); Immature Granulocytes Abs Auto 0.03 K/uL (0.00-0.30); Immature Granulocytes Pct Auto 0.3 %; Lymphocytes Percent Auto 5.2 % (20-44); Mean Corpuscular HGB Conc 31 gm/dL (32-36); Mean Corpuscular Hemoglobin 24 pg (26-34); Mean Corpuscular Volume 78 fL (80-100); Monocytes Percent Auto 11.7 % (0.0-11.0); Neutrophils Percent Auto 82.4 % (42.0-72.0); Platelet Count* 291 K/uL (140-440); RDW Coefficient of Variation % 16.2 % (11.5-15.5); Red Blood Count 4.19 m/uL (4.00-5.20); White Blood Count* 10.92 K/uL (4.50-11.00)
[2024-12-24 06:52] LABS: Slide Review Reflex No
[2024-12-24 06:55] LABS: Potassium* 4.1 mmol/L (3.6-5.1); Sodium* 129 mmol/L (135-149)
[2024-12-24 06:58] LABS: Blood Urea Nitrogen* 20 mg/dL (7-30); Creatinine* 0.9 mg/dL (0.5-1.5); Est. Creatinine Clearance* 42.39; Estimated Glomerular Filt Rate 66 ml/min
--- NOTE | 2024-12-24 07:29 | PC.NURSE ---
Picked up pt at 2300: Pt pleasant, alert and oriented. Dressing C/D/I. Hypertensive, otherwise, VSS. Pain rated 6/10, prn oxy given. Pt stated nausea, prn Zofran given and anti-nausea patch provided. Pt requested to walk cullen, stated it helped the discomfort in leg. Pt in bed, appears to be resting, call light within reach. ?
[2024-12-24] MEDS: FAMOTIDINE 20 MG TABLET PO (07:34)
[2024-12-24] MEDS: OMEPRAZOLE 20 MG CAPSULE DR 40 MG PO (07:34)
[2024-12-24 07:45] VITALS: BP 153/87; PULSE 92; RESP 16; TEMP 36.8; O2SAT 98
[2024-12-24] MEDS: ALBUTEROL INHALER 2 PUFF IH (08:01)
[2024-12-24] MEDS: PROCHLORPERAZINE 5 MG/ML VIAL IVP (09:36)
[2024-12-24 10:20] VITALS: O2SAT 98
[2024-12-24] MEDS: ACETAMINOPHEN 500 MG TABLET 1000 MG PO (10:53)
[2024-12-24] MEDS: LORazepam 0.5 MG TABLET PO (11:08)
[2024-12-24 12:00] VITALS: BP 168/72; PULSE 98; RESP 16; TEMP 36.9; O2SAT 100
[2024-12-24] MEDS: SCOPOLAMINE 1 MG/3 DAY PATCH 1 PATCH TRANSDERMA (12:16)
[2024-12-24] MEDS: OXYCODONE 5 MG TABLET PO (12:53)
[2024-12-24] MEDS: LOSARTAN POTASSIUM 50 MG TABLET PO (13:00)
[2024-12-24] MEDS: hydroCHLOROthiazide 25 MG TABLET PO (13:00)
[2024-12-24] MEDS: ASPIRIN 81 MG TABLET EC PO (13:00)
--- NOTE | 2024-12-24 13:37 | PC.NURSE ---
Patient discharged home with daughter. Patient battled nausea this morning. Eventually was relieved by lorazepam and scopolamine patch. Patient advised to take off on Monday. PIV taken out and catheter intacts. Incision clean, dry and intact. CWMS good. VSS. Pain controlled with PO pain medications. Tolerating a regular diet at discharge. Voiding without difficulty, passing flatus. Lung sounds clear. Has f/u scheduled for PT and to see ortho. All questions answered. Left via wheelchair escort.
--- NOTE | 2024-12-24 16:51 | PM.ORPN ---
Subjective Subjective Date Seen: 12/24/24 Principal diagnosis: Status postop day 1 right total knee arthroplasty Interval history: Patient reports doing okay. Reports having some nausea. No vomiting report to me. No acute events over night. Pain managed with scheduled and PRN medications, ice. DVT prophylaxis: 81 mg aspirin by mouth twice daily, SCDs, walking. Denies fevers, chills, aches, N/V, CP, SOB/BEVERLY, or lightheadedness. Prior to discharge, she did have an episode of vomiting. She was recalcitrant to numerous different medications for vomiting. Eventually scopolamine patch plus Zofran appeared to be somewhat helpful for her. Patient requests that she be able to bike to PT in 2 weeks. Ortho Exam Narrative Exam Narrative: -Patient appears comfortable; no apparent acute distress -Alert and oriented times 3 -Operative knee moderately swollen; soft tissues supple; no ecchymosis; no erythematous streaking Warmth appropriate -Surgical dressing clean, dry, intact; no drainage -Bilateral calfs soft; no significant swelling, edema, tenderness, erythema, discoloration, warmth, or palpable cords -2+ DP/PT pulses, intact dermatomes and myotomes distally (5/5 strength) Const Vital Signs, click to edit/add: Vital Signs - 24 hr 12/23/24 19:00 12/23/24 23:00 12/23/24 23:00 Temperature 98.3 F Pulse Rate [Pulse Oximeter] 91 Respiratory Rate 18 Blood Pressure [Left Arm] 153/79 H Pulse Oximetry 95 93 93 Oxygen Delivery Method Room Air Room Air 12/23/24 23:40 12/23/24 23:55 12/24/24 03:30 Temperature 98.6 F 98.3 F Pulse Rate [Pulse Oximeter] 82 82 82 Respiratory Rate 16 16 16 Blood Pressure [Left Arm] 163/83 H 160/76 H Pulse Oximetry 93 93 Oxygen Delivery Method Room Air Room Air 12/24/24 07:45 12/24/24 10:20 12/24/24 10:20 Temperature 98.3 F Pulse Rate [Pulse Oximeter] 92 Respiratory Rate 16 Blood Pressure [Left Arm] 153/87 H Pulse Oximetry 98 98 98 Oxygen Delivery Method Room Air Room Air 12/24/24 12:00 Temperature 98.5 F Pulse Rate [Pulse Oximeter] 98 Respiratory Rate 16 Blood Pressure [Left Arm] 168/72 H Pulse Oximetry 100 Oxygen Delivery Method Room Air Assessment and Plan Assessment and plan (1) Status post right knee replacement: Problem details: Right total knee arthroplasty - subvastus (Dr. Carey 12/23/2024) Status: Acute (2) Asthma: Problem details: Currently doing well. Continue home inhaler use. Status: Acute (3) Hypertension: Problem details: Resume blood pressure medications as tolerated Status: Acute (4) Constipation: Problem details: Add senna to Metamucil for management of acute on chronic constipation Status: Acute (5) Anemia: Problem details: Patient has borderline low hemoglobin with history of anemia and also history of recurrent blood donations. I recommended she take supplemental iron after surgery and hold off on blood donation until her hemoglobin has returned to normal. Status: Acute (6) Postoperative nausea and vomiting: Status: Acute Plan - Complete 23 hour perioperative antibiotics. - PT/OT consult for education and assistance. - Social work consult for discharge planning - Prescribed analgesics as needed - oxycodone - DVT prophylaxis: 81 mg aspirin by mouth twice daily, walking, and SCDs - She will wear the current scope pulling patch for a few days. Also prescribed Zofran ODT for nausea/vomiting. Encourages slowly progressing her diet. - Anticipation is for discharge to home with family/friends today 12/24/2024 if the patient remains medically stable, pain is controlled, and they are safe with mobilization.
== END 2024-12-24 13:40 | disposition home or self-care (01) ==
LOC: OR 06:05 → MEDSURG 12:03
PROVIDERS: PCP Family Medicine; Visit Provider Orthopaedic Surgery Sports Medicine
PROC: (CPT 27447; principal; 2024-12-23 07:30)
DX: M17.11 Unilateral primary osteoarthritis, right knee (principal); G89.18 Other acute postprocedural pain; R11.2 Nausea with vomiting, unspecified; D64.9 Anemia, unspecified; J45.909 Unspecified asthma, uncomplicated; K21.00 Gastro-esophageal reflux disease with esophagitis, without bleeding; I10 Essential (primary) hypertension; K59.00 Constipation, unspecified; I47.10 Supraventricular tachycardia, unspecified; Z79.82 Long term (current) use of aspirin; E78.5 Hyperlipidemia, unspecified; Z85.828 Personal history of other malignant neoplasm of skin; Z96.659 Presence of unspecified artificial knee joint
CPT/HCPCS: 27447; 01400; 01402; 36415; 64447; 64454; 73560; 76942; 82565; 84132; 84295; 84520; 85025; 97110; 97116; 97161; 97165; 97530; 97535; 99100; A9270; C1776; J0665; J0690; J0780; J1100; J1171; J2250; J2405; J2704; J3010; J7120

== ENCOUNTER 2025-01-17 18:05 | Outpatient (CLI) | payer MEDICARE, BC, SELFPAY | END 2025-01-17 18:06 | disposition home or self-care (01) | LOC: NFLDREF 01-22 02:04 | PROVIDERS: PCP Family Medicine; Referring Provider Family Medicine; Visit Provider Physician Assistant | DX: R05.1 Acute cough (principal) | CPT/HCPCS: 85379 ==

== ENCOUNTER 2025-01-17 19:48 | Emergency (ER) | payer MEDICARE, BC, SELFPAY ==
--- OUTSIDE RECORDS SUMMARY | 2025-01-17 19:51 | XMS_ITS | Clinical Summary ---
Author Organization [facility] Address [address] [place] [address] Care Team Providers Care Cloth Shrinking Supervisor Name Role Phone Juan Jose, Tj Bond MD Primary Care Provider Calli Mondragon NP Unavailable Stella Rolle Unavailable [phone] Allergies Active Allergy Reactions Criticality Noted Date Comments Cats (Fur, Dander, Saliva) Cough 5 Slight allergy Medications betamethasone, augmented dipropianate 0.05% (DIPROLENE AF) 0.05 % cream 08/18/19 21 Active Apple Cider Vinegar 600 mg cap Take 1,200 mg by mouth. 0 12/28/19 22 Active albuterol HFA (PRO-AIR; VENTOLIN; PROVENTIL) 90 mcg/actuation inhalerIndication s:Chronic cough Inhale 2 Puffs by mouth every 4 hours if needed for Shortness Of Breath or Wheezing (cough). 1 Each 11/21/19 24 Active omeprazole (PRILOSEC) 40 mg Delayed-Release capsuleIndication s:Gastroesophagea l reflux disease, unspecified whether esophagitis present Take 1 Capsule (40 mg) by mouth once daily before a meal. 90 Capsule 3 01/08/20 24 Active ferrous sulfate 325 mg delayed release tablet Take 325 mg by mouth once daily. Active calcium carbonate-vitamin D3, 600 mg-400 unit, (Calcium 600 + D) 600 mg-10 mcg (400 unit) tablet 03/10/20 24 Active hydroCHLOROthiazi de 25 mg tabletIndications :Hypertension Take 1 Tablet (25 mg) by mouth once daily. 90 Tablet 3 04/08/20 24 Active traZODone (DESYREL) 50 mg tabletIndications :Sleep disorder Take 1-2 Tablets (50-100 mg) by mouth at bedtime if needed for Sleep. 180 Tablet 3 04/08/20 24 Active estradioL (ESTRACE) 0.01% (0.1 mg/g) vaginal creamIndications: Recurrent UTI,Vaginal atrophy Apply a pea sized amount to your urethral meatus (where you pee from) and then into the vagina. Do this nightly for two weeks and then 2 times per week. 42.5 g 3 08/21/19 25 Active losartan (COZAAR) 50 mg tabletIndications :HTN (hypertension) TAKE ONE TABLET BY MOUTH EVERY DAY 90 Tablet 1 08/26/19 25 Active cranberry txjbrjo-o-eozjstj 157.5-500 mg cap Take by mouth. Active atorvastatin 40 mg tabletIndications :Hyperlipidemia, unspecified hyperlipidemia type Take 1 Tablet (40 mg) by mouth at bedtime. 90 Tablet 3 12/21/19 25 Active budesonide-formot Mario 80-4.5 mcg/actuation (80-4.5 mcg each actuation) inhalerIndication s:Cough variant asthma (HC) INHALE 2 PUFFS BY MOUTH TWO TIMES A DAY. FOR FLARE UP OF ASTHMA -USE 2 PUFFS FOUR TIMES A DAY FOR 7 -10 DAYS 30.6 g 01/04/20 25 Active atorvastatin (LIPITOR) 40 mg tabletIndications :Hyperlipidemia, unspecified hyperlipidemia type TAKE ONE TABLET BY MOUTH AT BEDTIME 90 Tablet 2 03/29/20 24 2024 Discontinued(R eorder (E-cancel not sent)) budesonide-formot Mario 80-4.5 mcg/actuation (80-4.5 mcg each actuation) inhalerIndication s:Cough variant asthma (HC) INHALE 2 PUFFS BY MOUTH TWICE DAILY. INHALE 2 PUFFS BY MOUTH 4 TIMES DAILY FOR 7-10 DAYS FOR ASTHMA FLARE UP. 30.6 g 11/26/19 25 06/27/ 2025 Discontinued Active Problems Problem Noted Date Diagnosed Date Paroxysmal tachycardia 10/23/2024 Primary osteoarthritis of right knee 09/02/2024 Overview (09/02/2024): August 2024: Dr. Jeronimo did right knee cortisone injection. INitial 80% improvement. 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 03/10/2021 History of colon polyps 02/20/2019 Overview (03/14/2023): Colonoscopy 02/2019 hyperplastic polyp, repeat in 5 years Colonoscopy 03/2023 diverticulosis, repeat in 7 years Basal cell carcinoma (BCC) o f skin of left lower extremity including hip 01/04/2019 Gastroesophageal reflux disease with esophagitis 09/08/2017 Overview (09/08/2017): EGD 08/2017 reflux Stress incontinence in female 09/22/2015 Hypertension 09/22/2015 Routine adult health maintenance 01/14/2014 Overview (01/14/2014): Colonoscopy 01/2014 diverticulosis, no follow up needed Hip osteoarthritis 05/20/2011 Insomnia 07/20/2010 Other and unspecified hyperlipidemia 10/13/2007 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 Encounters Date Type Department Care Team Description 01/02/2025 Refill [facility] [address] [facility] [address] [place] [phone] Margo Jaimes MBBS Refill Request (Budesonide-formoterol) 12/23/2024 Orders Only [facility] Scanner 1 scan: (1-Ord) SMITH, LOLLY KNEE RT 2V, 12/23/2024 12/18/2024 Refill [facility] [address] [place] [address] Tj Ingram MD Refill Request (Atorvastatin) 12/05/2024 9:40 AM CDT Office Visit [facility] [address] [place] [address] Tj Ingram MD Pre-Op Exam (12/24/[address] [facility] [address] Zavala Total Knee replacement right. Discuss preventative for UTI so she does not end up having UTI prior or during recovery or having surgery postponed due to the infection.) 12/05/2024 Travel 11/30/2024 Travel 11/25/2024 Telephone [facility] [address] [place] [phone] Margo Jaimes MBBS Medication Management (budesonide-formoteroL 80-4.5 mcg/actuation (80-4.5 mcg each actuation) inhaler ) 11/24/2024 Refill [facility] [address] [place] [address] Margo Jaimes MBBS Refill Request (Budesonide-formoterol) 10/31/2024 9:00 AM CDT Office Visit [facility] [address] [place] [address] Cardiovascular Diagnostic Testing (Stress echo) 10/31/2024 Travel 10/23/2024 1:35 PM CDT Office Visit [facility] [address] [place] [address] Tj Ingram MD Arrhythmia (Will have episodes where her heart rater will increase when walking her dog through non flat surfaces (grass)) 10/23/2024 Travel from Last 3 Months Immunizations Immunization Administration Dates Next Due AMB Influenza, IIV3 (Age >=3 years)(Flu Clinic Only) 04/04/2013 Amb Influenza, Inact (High-d ose) (Flu Clinic Only) 04/08/2016 Amb Influenza, Inactivated A IIV4 (Age 65+ Years) Preserv Free 03/26/2020 COVID-19 VACCINE SPIKEVAX (M ODERNA 50MCG/0.5ML) 12YO+ PFS 04/21/2023 COVID-19 vaccine (Moderna 100mcg/0.5mL) PF, MDV 02/02/2022,09/04/2020 COVID-19 vaccine (Pfizer-Bio NTech 30mcg/0.3mL) 12YO+ BIVALENT PF, MDV 04/01/2022 Dtap-5 Pertussis Antigens 12/20/2017 Hepatitis A (Adult) 01/05/2007,07/04/2000 Hepatitis B (Adult) 11/24/1993,06/23/1993,1992 Influenza A (H1N1), Inactivated 06/15/2009 Influenza A (H1N1), Inactiva jesus (Age >=3 Years) 03/10/2012,06/15/2009 Influenza Virus, Unspecified 04/15/2019 Influenza, High-dose Inactivated 04/02/2018,03/11,03/30/2015 Influenza, IIV3 (Age 6-35 mos) 04/09/2012,2010,04/01/2009 Influenza, IIV3 (Age >=3 years) 04/04/20 13,04/09/2011,04/20/2010,2007,07/04/2000 Influenza, Inactivated AIIV4 (Age 65+ Years) Preserv Free 04/06/2023,04/01/2022,03/10/2021 Influenza, Inactivated IIV3 (Age 65+ Years) Preserv Free 04/08/2024,04/02/2018,05/04/2017 Pneumococcal Poly,23-Valent (Pneumovax) 02/05/2013 Pneumococcal conj 13-Valent (Prevnar 13) 06/16/2015 Td (Age >=7 Years) 11/29/1996 Tdap 12/26/2006 Tdap, Unspecified 12/20/2017,12/20/2017 Zoster (Shingrix-RZV, recombinant) 03/14/2018,,01/08/2018 Zoster (Zostavax-ZVL, live) 05/14/2007 Family History Medical History Relation Name Comments Diabetes Brother Cancer Father melanoma Heart Disease Father leaky valves , a-fib Hypertension Father Cancer-breast Maternal Aunt 1 Cancer-breast Maternal Aunt 2 Cancer-breast Maternal Grandmother Cancer-breast Mother 85 Diabetes Mother Hypertension Mother Osteoporosis Mother and ?sister Cancer-breast Paternal Aunt Cancer-breast Paternal Grandmother GI Disease Sister diverticulitis Relation Name Status Comments Brother Father Maternal Aunt 1 breast ca Maternal Aunt 2 breast ca Maternal Grandmother breast ca Mother Paternal Aunt Paternal Grandmother breast ca Sister Social History Tobacco Use Types Packs/Day Years Used Date Smoking Tobacco: Never Smokeless Tobacco: Never Tobacco Cessation:Counseling Given: Yes Alcohol Use Standard Drinks/Week Comments No 0 (1 standard drink = 0.6 oz pure alcohol) rare use, less than once per month -Due to acid reflux, has nto drank in years PHQ-2 Answer Date Recorded PHQ-2 TOTAL SCORE 0 04/08/2024 Social Connections Answer Date Recorded Do you often feel lonely or isolated from those around you? 0 01/06/2024 Financial Resource Strain Answer Date R ecorded Difficulty of Paying Living Expenses 3 01/06/2024 Difficulty of Paying Living Expenses Not on file 01/06/2024 Food Insecurity Answer Date Recorded Do you worry your food will run out before you are able to buy more? 1 01/06/2024 Transportation Needs Answer Date Record ed Does lack of transportation keep you from medica l appointments? 1 01/06/2024 Does lack of transportation keep you from work, meetings or getting things that you need? 1 01/06/2024 Housing Stability Answer Date Recorded What is your housing situation today? 1 01/06/2024 Utilities Answer Date Recorded Do you have trouble paying f or utilities (for example, heat, electricity, water, phone)? 1 01/06/2024 Comments No Sex and Gender Information Value Date Recorded Sex Assigned at Not on file Legal Sex Female 5:46 AM STUD SETTER Gender Identity Not on file Sexual Orientation Not on file Occupation Industry Job Start Date Job End Date retired, working now at [employer] Not on file Not on f ile Not on file Obstetrics History Para Term AB IAB SAB Ectopic Multiple Livin g Live Births 2 2 2 2 Date Outcome GA Total Labor Labor/2nd/3rd Weight Sex Type Anes PTL Miranda A1 A5 Name Clin Term Term Last Filed Vital Signs Vital Sign Reading Time Taken Comments Blood Pressure 132/81 12/05/2024 9:47 AM CDT Pulse 74 12/05/2024 9:47 AM CDT Temperature 36.1 C (97 F) 01/16/2024 2:47 PM CDT Respiratory Rate 14 08/21/2024 8:21 AM STUD SETTER Oxygen Saturation 99% 12/05/2024 9:47 AM CDT Inhaled Oxygen Concentration - - Weight 92.7 kg (204 lb 6.4 oz) 12/05/2024 9:47 A M CDT Height 165.1 cm (5' 5) 12/05/2024 9:47 AM CDT Body Mass Index 34.01 12/05/2024 9:47 AM CDT Plan of Treatment Upcoming Encounters Date Type Department Care Team (Late st Contact Info) Description 02/19/2025 10:30 AM CDT Phone Office Visit [facility] [address] [place] [phone] Stella Rolle PA [address] [place] [address] 02/20/2025 2:30 PM CDT Office Visit [facility] [address] [place], [place] [phone] Jan Del Castillo PA [address] [facility] [address] [place] [address] Health Maintenance Due Date Last Done Comments RSV vaccine for adults or (1 - 1-dose 75+ series) 2022 COVID-19 vaccine series ( season) 2024 03/09/2024, 04/21/2023, 04/01/2022, Additional history exists Influenza Vaccine (#1) 2025 , 04/06/2023, 04/01/2022, Additional history exists Depression screening for age 12+ 04/08/2025 04/08/2024, 04/06/2023, 04/01/2022, Additional history exists Medicare Wellness for age 65+ 04/09/2025, 04/06/2023, 04/01/2022, Additional history exists BMI (ht and wt on same day) for age 18+ 12/05/2025 12/05/2024, 04/08/2024, 11/21/2023, Additional history exists Tetanus booster 12/21/2027 12/20/2017, 12/08, 12/26/2006, Additional history exists Hepatitis B series for 19+ Completed 11/24, 06/23/1993, 05/26/1993 Pneumococcal series for age 50+ Completed 5, 02/05/2013 Zoster (shingles) series for age 50+ Completed 03/14/2018, 01/08/2018, 01/08/2018, Additional history exists Hepatitis C screening for ag e 18-79 Completed 02/10/2020 DEXA/DXA scan for age 65+ Completed 2023, 12/07/2017, 05/21/2010, Additional history exists Procedures Procedure Name Priority Date/Time Associated Diagnosis Comments SCAN-RADIOLOGY REPORT 12/23/2024 12:00 AM CDT CBC WITH AUTO DIFFERENTIAL Routine 12/05/2024 10:43 AM CDT Preop examination BASIC METABOLIC PANEL Routine 12/05/2024 10:43 AM CDT Hypertension ECHO STRESS EXERCISE WO CONTRAST Routine 10/31/2024 9:33 AM CDT BEVERLY (dyspnea on exertion) Palpitations SCAN-STRESS TEST 10/31/2024 12:0 0 AM CDT XR DXA BONE DENSITY 1 SITE AXIAL AND 1 SITE PERIPHERAL Routine 01/17/2024 9:11 AM CDT Menopause ANTI HCV Routine 02/10/2020 11:22 AM CDT Need for hepatitis C screening test from Last 3 Months or Most Recently Relevant to Health Maintenance Results * SCAN-RADIOLOGY REPORT (12/23/2024 12:00 AM CDT) Anatomical Region Laterality Modality Other us Scanner OTHER Final Result * (ABNORMAL) CBC AND DIFFERENTIAL (12/05/2024 10:43 AM CDT) WHITE BLOOD CELL COUNT 6.2 3.8 - 10.8 Thousand/u L [facility] RED BLOOD CELL COUNT 4.87 3.80 - 5.10 Million/uL [facility] HEMOGLOBIN 11.6(L) 11.7 - 15.5 g/dL [facility] HEMATOCRIT 38.5 35.0 - 45.0 % [facility] MCV 79.1(L) 80.0 - 100.0 fL [facility] MCH 23.8(L) 27.0 - 33.0 pg [facility] MCHC 30.1(L) 32.0 - 36.0 g/dL [facility] Comment: For adults, a slight decrease in the calculated MCHC value (in the range of 30 to 32 g/dL) is most likely not clinically significant; however, it should be interpreted with caution in correlation with other red cell parameters and the patient's clinical condition. RDW 14.4 11.0 - 15.0 % [facility] PLATELET COUNT 345 140 - 400 Thousand/u L [facility] MPV 10.4 7.5 - 12.5 fL [facility] ABSOLUTE NEUTROPHILS 4,470 1,500 - 7,800 cells/uL [facility] ABSOLUTE LYMPHOCYTES 794(L) 850 - 3,900 cells/uL [facility] ABSOLUTE MONOCYTES 694 200 - 950 cells/uL [facility] ABSOLUTE EOSINOPHILS 161 15 - 500 cells/uL [facility] ABSOLUTE BASOPHILS 81 0 - 200 cells/uL [facility] NEUTROPHILS 72.1 % [facility] LYMPHOCYTES 12.8 % [facility] MONOCYTES 11.2 % [facility] EOSINOPHILS 2.6 % [facility] BASOPHILS 1.3 % [facility] Blood BLOOD SPECIMEN / Unknown 12/05/2024 10:43 AM CDT 12/05/2024 10:43 AM CDT Narrative [facility] - 12/06/2024 3:45 AM CDT FASTING:NO FASTING: NO Tj Ingram MD HEMATOLOGY Final R esult Performing Organization Address [facility]/ZIP Co de Phone Number [facility] [address] [place] [address], [place] [phone] [facility] [address] [place] [address] * BASIC METABOLIC PANEL (12/05/2024 10:43 AM CDT) Pathologist [facility] GLUCOSE 92 65 - 99 mg/dL [facility] Comment: Fasting reference interval UREA NITROGEN (BUN) 10 7 - 25 mg/dL [facility] CREATININE 0.88 0.60 - 1.00 mg/dL [facility] EGFR 68 > OR = 60 mL/min/1. 73m2 [facility] BUN/CREATININE RATIO SEE NOTE: 6 - 22 (calc) [facility] Comment: Not Reported: BUN and Creatinine are within reference range. SODIUM 136 135 - 146 mmol/L [facility] POTASSIUM 4.6 3.5 - 5.3 mmol/L [facility] CHLORIDE 101 98 - 110 mmol/L [facility] CARBON DIOXIDE 28 20 - 32 mmol/L [facility] ELECTROLYTE BALANCE 7 7 - 17 mmol/L (calc) [facility] CALCIUM 10.3 8.6 - 10.4 mg/dL [facility] Blood BLOOD SPECIMEN / Unknown 12/05/2024 10:43 AM CDT 12/05/2024 10:43 AM CDT Narrative [facility] - 12/06/2024 3:57 AM CDT FASTING:NO FASTING: NO Tj Ingram MD CHEMISTRY Final R esult Performing Organization Address [facility]/ZIP Co de Phone Number [facility] [address] [place] [address], [place] [phone] [facility] [address] [place] [address] * ECHO STRESS EXERCISE WO CONTRAST (10/31/2024 9:33 AM CDT) AORTIC VALVE MEAN PG 6 mmHg LVEDD 4.1 cm EJECTION FRACTION 60 - 65% Anatomical Region Laterality Modality Ultrasound 10/31/2024 9:09 AM CDT Narrative 10/31/2024 10:46 AM CDT STRESS ECHOCARDIOGRAM LISBET LAGUNAS : 1945 79 years Study Date: 10/31/2024 9:09:42 AM Gender: F BP: 134/63 mmHg Height: 165.00 cm BSA: 2.01 m Weight: 94.00 kg Tech: [facility] Referring MD: TJ INGRAM Site: [facility] Reading Location: Mobile-OP Patient Location: Outpatient. Procedure: Stress Echo, Limited Spectral Doppler and Color Doppler. Gary stress echo. Indication for study: SOB Cardiac Rhythm: Regular.Study quality: Good. Final Impressions: 1. Maximum stress test with 89.2% of age predicted maximum heart rate achieved. 2. During stress exam the patient developed shortness of breath. 3. See separate report for EKG interpretation. 4. Post stress, decreased left ventricular size, increased global systolic function with an estimated EF of >75%. 5. The aortic valve is sclerotic, no stenosis and no regurgitation. 6. Negative stress echo for ischemia. HR Systolic Diastolic Baseline 73 bpm 134 63 mmHg Peak 127 bpm 140 70 mmHg Max Pred HR 142 % of Max 89% Double Product [id number] Echo Findings:This is a negative stress echo test for ischemia. Post stress, decreased left ventricular size, increased global systolic function with an estimated EF of >75%. LV regional wall motion abnormalities are not present post exercise. EKG:See separate report for EKG interpretation. Exam Protocol:The patient presents with no significant symptoms at baseline. Maximum stress test with 89.2% of age predicted maximum heart rate achieved. The blood pressure response was normal. The patient developed shortness of breath during the stress exam. Low (less than 1% annual mortality rate) non invasive risk stratification. Chamber Sizes and Function Normal left ventricular size, normal global systolic function with an estimated EF of 60 - 65%. LV regional wall motion abnormalities are not present. Right ventricular cavity size is normal, global systolic RV function is normal. Valves, RV Pressures and Diastolic Function The aortic valve is sclerotic, no stenosis and no regurgitation. The mitral valve is normal in structure, no mitral regurgitation. The tricuspid valve is normal in structure, not evident tricuspid regurgitation. MEASUREMENTS AND CALCULATIONS 2-D Measurements and LV Function: LVID (d) 4.1 cm LV FS% (2D) 24 % LVID (s) 3.1 cm LVOT diameter 1.8 cm IVS (d) 1.4 cm HR 73 bpm LVPW (d) 1.4 cm Ao Sinus 2.4 cm Ao Sinus ULN 3.8 cm * Asc Ao 3.5 cm Asc Ao ULN 4.1 cm * * Input BSA outside of range, reported values correspond to BSA = 1.9 Aortic Valve: Vmax 1.7 m/s RYDER (V) 1.52 cm VTI 0.32 m RYDER (I) 1.61 cm LVOT V max 1.0 m/s Max PG 11 mmHg LVOT VTI 0.20 m Mean PG 6 mmHg SV 51 ml Dim Index 0.62 SV index 26 ml/m . This study was interpreted by an [facility] accredited facility. Final Procedure Note Geremias Perez MD - 10/31/2024 STRESS ECHOCARDIOGRAM LISBET LAGUNAS : 1945 79 years Study Date: 10/31/2024 9:09:42 AM Gender: F BP: 134/63 mmHg Height: 165.00 cm BSA: 2.01 m Weight: 94.00 kg Tech: [facility] Referring MD: TJ INGRAM Site: [facility] Reading Location: Mobile-OP Patient Location: Outpatient. Procedure: Stress Echo, Limited Spectral Doppler and Color Doppler. Brucestress echo. Indication for study: SOB Cardiac Rhythm: Regular.Study quality: Good. Final Impressions: 1. Maximum stress test with 89.2% of age predicted maximum heart rateachieved. 2. During stress exam the patient developed shortness of breath. 3. See separate report for EKG interpretation. 4. Post stress, decreased left ventricular size, increased globalsystolic function with an estimated EF of >75%. 5. The aortic valve is sclerotic, no stenosis and no regurgitation. 6. Negative stress echo for ischemia. HR Systolic Diastolic Baseline 73 bpm 134 63 mmHg Peak 127 bpm 140 70 mmHg Max Pred HR 142 % of Max 89% Double Product [id number] Echo Findings:This is a negative stress echo test for ischemia. Poststress, decreased left ventricular size, increased global systolicfunction with an estimated EF of >75%. LV regional wall motionabnormalities are not present post exercise. EKG:See separate report for EKG interpretation. Exam Protocol:The patient presents with no significant symptoms atbaseline. Maximum stress test with 89.2% of age predicted maximum heartrate achieved. The blood pressure response was normal. The patientdeveloped shortness of breath during the stress exam. Low (less than 1%annual mortality rate) non invasive risk stratification. Chamber Sizes and Function Normal left ventricular size, normal global systolic function with anestimated EF of 60 - 65%. LV regional wall motion abnormalities are notpresent. Right ventricular cavity size is normal, global systolic RVfunction is normal. Valves, RV Pressures and Diastolic Function The aortic valve is sclerotic, no stenosis and no regurgitation. Themitral valve is normal in structure, no mitral regurgitation. Thetricuspid valve is normal in structure, not evident tricuspidregurgitation. MEASUREMENTS AND CALCULATIONS 2-D Measurements and LV Function: LVID (d) 4.1 cm LV FS% (2D)24 % LVID (s) 3.1 cm LVOT diameter1.8 cm IVS (d) 1.4 cm HR73 bpm LVPW (d) 1.4 cm Ao Sinus 2.4 cm Ao Sinus ULN 3.8 cm * Asc Ao 3.5 cm Asc Ao ULN 4.1 cm * * Input BSA outside of range, reported values correspond to BSA = 1.9 Aortic Valve: Vmax 1.7 m/s RYDER (V) 1.52 cm VTI 0.32 m RYDER (I) 1.61 cm LVOT V max 1.0 m/s Max PG 11 mmHg LVOT VTI 0.20 m Mean PG 6 mmHg SV 51 ml Dim Index 0.62 SV index 26 ml/m . This study was interpreted by an [facility] accredited facility. Final us Tj Ingram MD ECHO ORD Final R esult * SCAN-STRESS TEST (10/31/2024 12:00 AM CDT) Anatomical Region Laterality Modality Ultrasound us Scanner OTHER Final Result * (ABNORMAL) XR DXA BONE DENSITY 1 SITE AXIAL AND 1 SITE PERIPHERAL (01/17/2024 9:11 AM CDT) Anatomical Region Laterality Modality LUMBAR SPINE Other Impressions 01/23/2024 2:01 PM CDT Osteopenia. RECOMMENDATIONS: The National Osteoporosis Foundation recommends pharmacologic treatment for patients with T-scores of -2.5 or less, patients with prior history of fragility fractures, or patients with 10-year probability of greater than 3% at hips or greater than 20% of suffering major osteoporotic fractures. Recommend continued optimization of calcium and vitamin D intake through dietary means and/or supplementation and regular exercise. Repeat scan recommended in 3-5 years. Dawn Cazares PA-C [facility] 01/23/2024 Narrative 01/23/2024 2:01 PM CDT For Patients: Results are automatically released to your [facility] account once available, in compliance with federal regulations. This means that you may see your results before your provider has had a chance to review them. Please allow 2-3 business days for your provider to comment on the results. XR DXA Bone Mineral Density (BMD) EXAM LOCATION: [address] [address] PATIENT NAME: Lisbet Lagunas DATE OF : 1945 EXAM DATE: 01/17/2024 REQUESTING PROVIDER: Tj Ingram MD GENDER AT : female HEIGHT: 5' 5 (11/21/2023) WEIGHT: 202 lb (01/08/2024) MENOPAUSAL STATUS: Postmenopausal RACE/ETHNICITY: White RISK FACTORS: Height Loss (2 inches or more) and White Race CURRENT MEDICATION FOR BONE LOSS: NONE INDICATION: Menopause COMPARISON DATE(S): DXA scans are compared to prior studies for a patient only when the two (or more) studies were performed on the same scanner. It is not possible to compare data generated on one scanner to data from another because there are not standards in DXA equipment. This applies even if the two scanners are made by the same journeyman molder. PROCEDURE: Dual-energy x-ray absorptiometry performed with routine technique. Reporting is completed in the form of a T-score. The T-score represents the standard deviation from peak bone mass based on young healthy adult. A Z-score is used for diagnosis in premenopausal women, and for men under the age of 50. FINDINGS: RESULT LUMBAR SPINE L1 - L2 (EXCLUDE L3, L4) BMD: 1.279 g/cm2 T-Score: + 0.9 Z-Score: + 1.8 Change from prior in 2007: Increase 1.3%. RESULT FOREARM Left Forearm distal radius BMD: 0.609 g/cm2 T-Score: - 1.1 Z-Score: + 1.3 Change from prior in 2017: Decrease 5.3%. WHO criteria: Normal: T-score at or above -1 SD Osteopenia: T-score between -1.1 and -2.4 SD Osteoporosis: T-score at or below -2.5 SD Tj Ingram MD DEXA Final R esult * ANTI HCV (02/10/2020 11:22 AM CDT) [facility] HEPATITIS C ANTIBODY Non-React ana luisa Non-React ana luisa 02/10/2020 7:17 PM CDT [facility] Comment:Antibodies to HCV no t detected; does not exclude the possibility of exposure to HCV. Blood BLOOD SPECIMEN / Unknown Butterfly / Unknown 02/10/2020 11:22 AM CDT 02/10/2020 11:22 AM CDT Tj Ingram MD SEND OUTS Final R esult [facility] [address] [place] [address], [place] from Last 3 Months or Most Recently Relevant to Health Maintenance Insurance MEDICARE PART B HB ONLY [place] BLUE MR PB ONLY [place] BLUE HB ONLY MEDICARE PART A HB ONLY Advance Directives Documents on File Type Date Recorded Patient Frame Nailer Expl anation Healthcare Directive 01/15/2019 11:26 AM HE ALTH CARE DIRECTIVE, [facility] Care Teams Cloth Shrinking Supervisor Relationship Specialty Start Date End Date Tj Ingram MD [address] [place] [address] PCP - General Family Practice 05/29/12 Calli Mondragon NP [address] [place] [address] Dr Miller [address] [place] [id number] Nurse Practitioner - Family 02/24/22 Stella Rolle PA [address] [place] [address] Physician Food Service Attendant 08/21/24
[2025-01-17 20:04] VITALS: BP 127/83; PULSE 112; RESP 24; TEMP 37; O2SAT 96; BMI 32.3
[2025-01-17 20:31] VITALS: O2SAT 96
--- NOTE | 2025-01-17 20:32 | CRLHL7_ITS ---
For Patients: As a result of the 21st Century Cures Act, medical imaging exams and procedure reports are released immediately into your electronic medical record. You may view this report before your referring provider. If you have questions, please contact your health care provider. INDICATION: Elevated D-dimer, history of COVID, cough. Rule out PE. TECHNIQUE: CT chest angiogram acquired with 95 cc Isovue 370 IV contrast according to the PE protocol. Coronal and sagittal reconstructions. 3D MIPS post-processing was performed. COMPARISON: Same day chest radiograph. CT chest 10/10/2023. FINDINGS: Cardiovascular structures: Normal heart size. Normal caliber thoracic aorta and central pulmonary arteries. No acute pulmonary embolism identified. Coronary artery and aortic vascular calcifications. Mediastinum and mary: No pathologically enlarged lymph nodes. No pericardial effusion. Lungs and pleura: No focal consolidation, pleural effusion, or pneumothorax. Mild bibasilar atelectasis. Mild diffuse bronchial wall thickening. Stable 5 mm noncalcified pulmonary nodule in the right middle lobe (series 5 image 116). Stable 4 mm noncalcified pulmonary nodule in the posteromedial right lower lobe (image 79). 6 mm noncalcified pulmonary nodule in the superior segment right lower lobe is more conspicuous compared to prior exam (image 70). Small calcified granulomas in the left upper lobe. Chest wall: No mass or adenopathy. Subcentimeter hypodense right thyroid nodule. Upper abdomen: Elevation of the right hemidiaphragm. Small hiatal hernia. Cholecystectomy. Remainder unremarkable. Bones: Unremarkable for age. IMPRESSION: 1. Negative for acute pulmonary embolism. 2. Mild diffuse bronchial wall thickening which can be seen with bronchitis. No focal lung infiltrates. 3. Noncalcified pulmonary nodules measuring up to 6 mm. Please see follow-up guidelines below. [employer] GUIDELINES - SOLID NODULES: : MULTIPLE LOW RISK - nodule less than 6 mm: No routine follow-up. - nodule 6-8 mm: CT at 3-6 months, then consider CT at 18-24 months. - nodule greater than 8 mm: CT at 3-6 months, then consider CT at 18-24 months. MULTIPLE HIGH RISK - nodule less than 6 mm: Optional CT at 12 months. - nodule 6-8 mm: CT at 3-6 months, then at 18-24 months. - nodule greater than 8 mm: CT at 3-6 months, then at 18-24 months. Please note that all CT scans at this facility use dose modulation, iterative reconstruction, and/or weight-based dosing when appropriate to reduce radiation dose to as low as reasonably achievable. Dictated by Najma Humphries MD @ 01/17/2025 9:53:22 PM (Electronically Signed)
[2025-01-17 21:13] LABS: Chloride* 98 mmol/L (96-114); Potassium* 3.7 mmol/L (3.6-5.1); Sodium* 130 mmol/L (135-149)
[2025-01-17 21:16] LABS: Anion Gap 9 mEq/L (7-15); Blood Urea Nitrogen* 12 mg/dL (7-30); Calcium* 9.5 mg/dL (8.4-10.6); Carbon Dioxide* 23 mmol/L (20-32); Creatinine* 0.8 mg/dL (0.5-1.5); Est. Creatinine Clearance* 44.10; Estimated Glomerular Filt Rate 76 ml/min; Glucose* 109 mg/dL (60-115)
--- NOTE | 2025-01-17 21:18 | ED.GENADULT ---
HPI - General Adult General Date Seen: 01/17/25 Chief complaint: Shortness of Breath/Dyspnea Stated complaint: recommended by urgent care Time Seen by Provider: 01/17/25 19:50 Source: patient, RN notes reviewed and old records reviewed Mode of arrival: ambulatory Limitations: no limitations History of Present Illness HPI narrative: Patient is a per 79-year-old female who presents here for evaluation of an elevated D-dimer she was seen by Arnoldo Cruz at Urgent Care, she was having a cough, some mild shortness of breath and was diagnosed with COVID, D-dimer at that time was elevated, he and I did discuss with the provider and they sent her here to the hospital for evaluation of a possible pulmonary embolism. She does not have any leg swelling, no significant syncope, feeling of dizziness heart racing, chest pain, he does feel short of breath and does have a history of asthma, and feels that this is sort of normal for her asthma. No family history of thus also but she does have a history of PSVT in the past, no recent surgeries. Related Data Home Medications ?Medication ?Instructions ?Recorded ?Confirmed atorvastatin 40 mg tablet 40 mg PO DAILY 09/11/23 01/17/25 hydrochlorothiazide 25 mg tablet 25 mg PO DAILY 09/11/23 01/17/25 losartan 25 mg tablet 50 mg PO DAILY 09/11/23 01/17/25 budesonide-formoterol HFA 80 2 puff inhalation QID PRN 11/14/23 01/17/25 mcg-4.5 mcg/actuation aerosol inhaler fluticasone propionate 50 1 spray intranasal DAILY 11/14/23 01/17/25 mcg/actuation nasal spray,suspension betamethasone, augmented 0.05 % applic topical DAILY PRN 10/18/24 01/17/25 topical cream estradiol 0.01% (0.1 mg/gram) vaginal 10/18/24 01/17/25 vaginal cream famotidine 20 mg tablet (Pepcid AC) 20 mg PO QDAY 10/18/24 01/17/25 omeprazole 40 mg capsule,delayed 40 mg PO DAILY 10/18/24 01/17/25 release psyllium husk 0.4 gram capsule 0.4 g PO QDAY 11/25/24 01/17/25 (Metamucil) trazodone 50 mg tablet 50 mg PO QPM PRN 11/25/24 01/17/25 albuterol sulfate 90 mcg/actuation 2 inh inhalation Q4H PRN 12/20/24 01/17/25 aerosol inhaler olopatadine 0.2 % eye drops 1 drp ophthalmic (eye) DAILY 12/23/24 01/17/25 (Pataday Once Daily Relief) ibuprofen PO 01/17/25 01/17/25 Previous Rx's ?Medication ?Instructions ?Recorded acetaminophen 500 mg capsule 500 - 1,000 mg (1 - 2 x 500 mg) PO 12/23/24 Q6H PRN #100 caps aspirin 81 mg tablet,delayed 81 mg PO BID #60 tabs 12/23/24 release sennosides 8.6 mg-docusate sodium 1 - 4 tab-cap (1 - 4 x 8.6-50 mg) 12/23/24 50 mg tablet (Senna-S) PO BID PRN constipation #60 tabs benzonatate 200 mg capsule 200 mg PO BID-TID PRN cough #30 01/17/25 caps prednisone 20 mg tablet See Rx Instructions PO QDAY Cough 01/17/25 #10 tabs Allergies Allergy/AdvReac Type Severity Reaction Status Date / Time No Known Drug Allergies Allergy Verified 01/17/25 20:47 Review of Systems Status of ROS: Reports: 10 or more systems reviewed and unremarkable except as noted in History and below [facility] Medical History Anemia ?D64.9 - Anemia, unspecified (ICD-10) Anemia ?D64.9 - Anemia, unspecified (ICD-10) Constipation ?K59.00 - Constipation, unspecified (ICD-10) Asthma ?J45.909 - Unspecified asthma, uncomplicated (ICD-10) Paroxysmal tachycardia ?I47.9 - Paroxysmal tachycardia, unspecified (ICD-10) Unspecified hemorrhoids without mention of complication ?K64.9 - Unspecified hemorrhoids (ICD-10) Shingles ?B02.9 - Zoster without complications (ICD-10) Stress incontinence in female ?N39.3 - Stress incontinence (female) (male) (ICD-10) Insomnia ?G47.00 - Insomnia, unspecified (ICD-10) Primary osteoarthritis of right knee ?M17.11 - Unilateral primary osteoarthritis, right knee (ICD-10) History of colon polyps ?Z86.0100 - Personal history of colon polyps, unspecified (ICD-10) Gastroesophageal reflux disease with esophagitis ?K21.00 - Gastro-esophageal reflux disease with esophagitis, without bleeding (ICD-10) Other and unspecified hyperlipidemia ?E78.5 - Hyperlipidemia, unspecified (ICD-10) 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 ?D04.5 - Carcinoma in situ of skin of trunk (ICD-10) Basal cell carcinoma (BCC) of skin of left lower extremity including hip ?C44.719 - Basal cell carcinoma of skin of left lower limb, including hip (ICD-10) 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 - Localized scleroderma [morphea] (ICD-10) Paroxysmal SVT (supraventricular tachycardia) ?I47.10 - Supraventricular tachycardia, unspecified (ICD-10) Hypertension ?I10 - Essential (primary) hypertension (ICD-10) Surgical History Status post right knee replacement (12/23/24) ?Z96.651 - Presence of right artificial knee joint (ICD-10) History of phacoemulsification of cataract of both eyes with intraocular lens implantation ?Z98.41 - Cataract extraction status, right eye (ICD-10) ?Z98.42 - Cataract extraction status, left eye (ICD-10) ?Z96.1 - Presence of intraocular lens (ICD-10) History of total knee arthroplasty ?Z96.659 - Presence of unspecified artificial knee joint (ICD-10) History of hysterectomy ?Z90.710 - Acquired absence of both cervix and uterus (ICD-10) S/P left knee arthroscopy (07/20/00) ?Z98.890 - Other specified postprocedural states (ICD-10) History of cholecystectomy ?Z90.49 - Acquired absence of other specified parts of digestive tract (ICD-10) H/O hemorrhoidectomy ?Z98.890 - Other specified postprocedural states (ICD-10) History of total left hip arthroplasty (2011) ?Z96.642 - Presence of left artificial hip joint (ICD-10) History of total right hip arthroplasty ?Z96.641 - Presence of right artificial hip joint (ICD-10) H/O colonoscopy ?Z98.890 - Other specified postprocedural states (ICD-10) H/O endoscopy ?Z98.890 - Other specified postprocedural states (ICD-10) H/O esophagogastroduodenoscopy ?Z98.890 - Other specified postprocedural states (ICD-10) Family History Mother Breast cancer Diabetes High blood pressure Aunt Breast cancer Grandmother Breast cancer Brother Diabetes Father High blood pressure Social History Narrative: She lives alone in [place]. She can live on 1 level in her home. Her 2 daughters will be assisting her of during her 1st week and her sister will come to a sister in her 2nd week postop. She does not smoke or drink alcohol What is your current living situation?: I presently have a place to live Problems where you live: no known problems In the past 12 months, utilities in danger of being shut off: no In past 12 months, lack of transportation kept you from medical appts, meetings, work, or getting things needed for daily living: no In the past 12 mos, have been you worried that your food would run out before you had money to buy more?: never true In the past 12 mos, the food you bought just didn't last and you didn't have money to buy more?: never true Smoking Status: Never smoker Do you use any of these nicotine containing products: None Second hand tobacco smoke exposure: No How often do you have a drink containing alcohol: never How often do you have six or more drinks on one occasion: Never AUDIT-C Alcohol total score: 0 Non-prescribed substance use: denies use Caffeine: No How often does anyone, including family, friends and others, physically hurt you: never How often does anyone, including family, friends and others, insult or talk down to you: never How often does anyone, including family, friends and others, threaten you with harm: never How often does anyone, including family, friends and others, scream or curse at you: never service: No Exam Narrative: Exam Narrative: On examination in room 4 she is in absolutely no distress she is pleasant alert, pupils equal round reactive to light speaking to me normally, no air hunger noted. TMs are normal oropharynx normal neck is supple chest is good air entry bilaterally no wheezing crackles noted heart sounds normal abdomen is soft and slightly obese there is no guarding no organomegaly no edema of her lower extremities negative Homans sign moves all extremities independently and well. Const: Vital Signs, click to edit/add: Vital Signs - 24 hr 01/17/25 20:04 01/17/25 20:31 01/17/25 21:30 Temperature 98.6 F Pulse Rate [Pulse Oximeter] 112 H 92 Respiratory Rate 24 18 Blood Pressure [Ri ght Upper Arm] 127/83 136/87 Pulse Oximetry 96 96 97 Oxygen Delivery Me thod Room Air Room Air 01/17/25 22:15 Temperature Pulse Rate [Pulse Oximeter] 96 Respiratory Rate 20 Blood Pressure [Ri ght Upper Arm] 141/78 H Pulse Oximetry 96 Oxygen Delivery Me thod Room Air Course Course ED Course: I discussed with her that his CT is negative for clot there was some evidence of a little bit of bronchiolitis. Or possible bronchitis. There is also evidence of a him nodule. Of 6 mm this will need follow-up in 3-6 months, with likely a repeat CT I have given her copy of this that she can bring to her primary care, we also gave her a dose of prednisone here, and she can fill her prescription she got from urgent care. We went over signs and symptoms of worsening, and she was comfortable with this, Vital Signs Vital signs: Initial Vital Signs Temperature 98.6 F 01/17/25 20:04 Temperature Source Temporal Artery Scan 01/17/25 20:04 Pulse Rate 112 H 01/17/25 20:04 Respiratory Rate 24 01/17/25 20:04 Respiratory Effort Spontaneous, Non-Labored 01/17/25 20:04 Respiratory Depth Normal 01/17/25 20:04 Blood Pressure 127/83 01/17/25 20:04 Blood Pressure Mean 97 01/17/25 20:04 Blood Pressure Position Sitting 01/17/25 20:04 Pulse Oximetry 96 01/17/25 20:04 Oxygen Delivery Method Room Air 01/17/25 20:04 Vital Signs Temperature 98.6 F 01/17/25 20:04 Pulse Rate 112 H 01/17/25 20:04 Respiratory Rate 24 01/17/25 20:04 Blood Pressure 127/83 01/17/25 20:04 Pulse Oximetry 96 01/17/25 20:04 Oxygen Delivery Method Room Air 01/17/25 20:04 Temperature 98.6 F 01/17/25 20:04 Pulse Rate 96 01/17/25 22:15 Respiratory Rate 20 01/17/25 22:15 Blood Pressure 141/78 H 01/17/25 22:15 Pulse Oximetry 96 01/17/25 22:15 Oxygen Delivery Method Room Air 01/17/25 22:15 Medications Administered Medications: Discontinued Medications Generic Name Dose Route Start Last Admin Trade Name Ezequiel PRN Reason Stop Dose Admin Albuterol/Ipratropium 1 neb 01/17/25 21:31 01/17/25 21:36 Iprat-Albut 0.5-2.5 Mg/3 Ml Neb IH 01/17/25 21:32 1 neb ONCE ONE Administration Aspirin 81 mg 01/17/25 21:31 01/17/25 21:56 Aspirin 81 Mg Tablet Ec PO 01/17/25 21:32 81 mg ONCE ONE Administration Sodium Chloride 1,000 mls @ 1,000 mls/hr 01/17/25 20:45 01/17/25 22:02 0.9 % Sodium Chloride 1000 Ml IV 01/17/25 21:44 Infused .Q1H ROGELIO Infusion Prednisone 50 mg 01/17/25 22:00 01/17/25 22:17 Prednisone 10 Mg Tablet PO 01/17/25 22:01 50 mg ONCE ONE Administration Medical Decision Making MDM Narrative Medical decision making narrative: Life-threatening differential diagnosis includes occluded COPD exacerbation, pulmonary edema, acute coronary syndromes, pulmonary embolism, pneumonia, and pneumothorax. Other differential diagnosis considerations include asthma, bronchitis as well as other etiologies Medical Records Medical records reviewed: Yes I reviewed the patient's medical records Lab Data Lab results reviewed: Yes I reviewed the patient's lab results Labs: Lab Results 01/17/25 Range/Units 20:45 Sodium 130 L (135-149) mmol/L Potassium 3.7 (3.6-5.1) mmol/L Chloride 98 (96-114) mmol/L Carbon Dioxide 23 (20-32) mmol/L Anion Gap 9 (7-15) mEq/L BUN 12 (7-30) mg/dL Creatinine 0.8 (0.5-1.5) mg/dL Estimated Creat Clear 44.10 Estimated GFR 76 ml/min Glucose 109 (60-115) mg/dL Calcium 9.5 (8.4-10.6) mg/dL Imaging Data CT scan - chest: Attestation: I have reviewed the pertinent imaging results. My impression: No evidence of P Radiologist's impression: atient: Lisbet Sinha MR#: [id number] : 1945 Acct:[id number] Loc: ED Service Date: 01/17/[address]: Ordering Physician: Gennaro Zelaya M.D. Date of Service: 01/17/25 Procedure(s): CT angio chest PE protocol Accession Number(s): [id number] cc: Gennaro Zelaya M.D.; Lety Ingram M.D.~ For Patients: As a result of the Cures Act, medical imaging exams and procedure reports are released immediately into your electronic medical record. You may view this report before your referring provider. If you have questions, please contact your health care provider. INDICATION: Elevated D-dimer, history of COVID, cough. Rule out PE. TECHNIQUE: CT chest angiogram acquired with 95 cc Isovue 370 IV contrast according to the PE protocol. Coronal and sagittal reconstructions. 3D MIPS post-processing was performed. COMPARISON: Same day chest radiograph. CT chest 10/10/2023. FINDINGS: Cardiovascular structures: Normal heart size. Normal caliber thoracic aorta and central pulmonary arteries. No acute pulmonary embolism identified. Coronary artery and aortic vascular calcifications. Mediastinum and mayr: No pathologically enlarged lymph nodes. No pericardial effusion. Lungs and pleura: No focal consolidation, pleural effusion, or pneumothorax. Mild bibasilar atelectasis. Mild diffuse bronchial wall thickening. Stable 5 mm noncalcified pulmonary nodule in the right middle lobe (series 5 image 116). Stable 4 mm noncalcified pulmonary nodule in the posteromedial right lower lobe (image 79). 6 mm noncalcified pulmonary nodule in the superior segment right lower lobe is more conspicuous compared to prior exam (image 70). Small calcified granulomas in the left upper lobe. Chest wall: No mass or adenopathy. Subcentimeter hypodense right thyroid nodule. Upper abdomen: Elevation of the right hemidiaphragm. Small hiatal hernia. Cholecystectomy. Remainder unremarkable. Bones: Unremarkable for age. IMPRESSION: 1. Negative for acute pulmonary embolism. 2. Mild diffuse bronchial wall thickening which can be seen with bronchitis. No focal lung infiltrates. 3. Noncalcified pulmonary nodules measuring up to 6 mm. Please see follow-up guidelines below. [employer] SOC[employer]ET[employer] GUIDELINES - SOLID NODULES: : MULTIPLE LOW RISK - nodule less than 6 mm: No routine follow-up. - nodule 6-8 mm: CT at 3-6 months, then consider CT at 18-24 months. - nodule greater than 8 mm: CT at 3-6 months, then consider CT at 18-24 months. MULTIPLE HIGH RISK - nodule less than 6 mm: Optional CT at 12 months. - nodule 6-8 mm: CT at 3-6 months, then at 18-24 months. - nodule greater than 8 mm: CT at 3-6 months, then at 18-24 months. Please note that all CT scans at this facility use dose modulation, iterative reconstruction, and/or weight-based dosing when appropriate to reduce radiation dose to as low as reasonably achievable. Dictated by Najma Humphries MD @ 01/17/2025 9:53:22 PM (Electronically Signed) ECG Data Attestation: I personally reviewed and interpreted this ECG as follows: Prior ECG tracings: not available for review Interpretation: EKG shows normal sinus rhythm with a ventricular rate of 97, no acute ST wave changes, QRS 92 milliseconds QT 348 QTC 441 Discharge Plan Discharge Clinical Impression: Asthma, COVID-19, D-dimer, elevated, Acute hyponatremia Patient Disposition: Home, Self-Care Condition: Stable Instructions: Asthma (ED), Hyponatremia (ED), COVID-19 (Coronavirus Disease 2019) (ED) Additional Instructions: Home rest fill your prescriptions tomorrow, your chest CT did not show any evidence of a blood clot, return here if increasing cough wheezing shortness of breath, reassuring findings. There is also evidence of some mild when a tree me a or low-salt level in your blood, would be advantageous to maybe drink a little less water. And increase her salt intake. I do suggest you get this rechecked within the next couple weeks. Activity Level: Light activity Discharge Diet: Regular Prescriptions: No Action ibuprofen PO prednisone 20 mg tablet See Rx Instructions PO QDAY Qty: 10 0RF Rx Instructions: Two p.o. as single dose x 5 days, then discontinue. benzonatate 200 mg capsule 200 mg PO BID-TID PRN (Reason: cough) Qty: 30 0RF budesonide-formoterol 80-4.5 mcg/actuation HFA aerosol inhaler 2 puff inhalation QID PRN Patient Comments: [NO ORIGINAL SIG] fluticasone propionate 50 mcg/actuation spray,suspension 1 spray intranasal DAILY omeprazole 40 mg capsule,delayed release(DR/EC) 40 mg PO DAILY betamethasone, augmented 0.05 % cream topical DAILY PRN estradiol 0.01 % (0.1 mg/gram) cream vaginal famotidine [Pepcid AC] 20 mg tablet 20 mg PO QDAY psyllium husk [Metamucil] 0.4 gram capsule 0.4 g PO QDAY atorvastatin 40 mg tablet 40 mg PO DAILY losartan 25 mg tablet 50 mg PO DAILY hydrochlorothiazide 25 mg tablet 25 mg PO DAILY trazodone 50 mg tablet 50 mg PO QPM PRN albuterol sulfate 90 mcg/actuation HFA aerosol inhaler 2 inh inhalation Q4H PRN olopatadine [Pataday Once Daily Relief] 0.2 % drops 1 drp ophthalmic (eye) DAILY sennosides-docusate sodium [Senna-S] 8.6-50 mg tablet 1 - 4 tab-cap PO BID PRN (Reason: constipation) Qty: 60 0RF Rx Instructions: Hold medication if experiencing loose stools. aspirin 81 mg tablet,delayed release (DR/EC) 81 mg PO BID Qty: 60 0RF Rx Instructions: Medication to help prevent blood clots postoperatively; take TWICE daily. acetaminophen 500 mg capsule 500 - 1,000 mg PO Q6H MDD 4000mg PRNQty: 100 0RF Follow Up/Referrals: Lety Ingram MD [Primary Care Provider, Family Practice] Stand Alone Forms: [employer] Info Instructions
[2025-01-17 21:30] VITALS: BP 136/87; PULSE 92; RESP 18; O2SAT 97
[2025-01-17] MEDS: IPRAT-ALBUT 0.5-2.5 MG/3 ML NEB 1 NEB IH (21:36)
[2025-01-17] MEDS: ASPIRIN 81 MG TABLET EC PO (21:56)
[2025-01-17 22:15] VITALS: BP 141/78; PULSE 96; RESP 20; O2SAT 96
== END 2025-01-17 22:27 | disposition home or self-care (01) ==
PROVIDERS: Emergency Provider Family Medicine; PCP Family Medicine
DX: J45.909 Unspecified asthma, uncomplicated (principal); U07.1 COVID-19; E87.1 Hypo-osmolality and hyponatremia
CPT/HCPCS: 36415; 71275; 80048; 93005; 94761; 99284; 99285; A9270; J7030; J7512; Q9967

== ENCOUNTER 2025-02-06 09:45 | Outpatient (RCR) | payer MEDICARE, BC, SELFPAY ==
--- NOTE | 2024-12-26 11:07 | PT.OPEX ---
PT [facility] Outpatient Eval PT [facility] Outpatient Eval Start: 12/25/24 15:45 Freq: Status: Active Protocol: Document 12/26/24 07:00 HLA (Rec: 12/26/24 11:02 HLA [id number]) E-signed By Shamika Murphy, PT, DPT Physical Therapy Outpatient Evaluation Insurance Information Recert Due Date 03/25/25 Insurance Name Medicare B Medical Diagnosis R TKA PMHx of anemia, asthma, tachycardia, OA, GERD, scleroderma, HTN Treating Diagnosis weakness, impaired ROM, difficulty amb after R TKA Referring MD Cherry Subjective Preferred Name Lisbet Subjective Pt reports nausea, lightheadedness, did take .5 oxy prior to session. Has been doing her ex, using ice. Gt with 4ww at home. Dtrs supervising closely. She reports constipation, feeling foggy. We discussed meds, pt is asked to stop in at ortho clinic next door to get further instruction. Pain Comments 10/17 R knee Date of Last 12/24/24 Physician Visit Date of Surgery (If 12/23/24 applicable) Current Work Status Retired Precautions Treatment nausea, lightheaded 12/26 session Precautions/ Contraindications Weight Bearing Weight Bear as Tolerated Status Therapy Limitations/ Not Limited Systems Review Objective Range of Motion ROM UEs WNL R hip flex 0-120, knee 4-90 by end of session seated AAROM, ankle full L LE full Strength UEs 5/5 L LE 5/5 R hip 5/5, knee 3-/5, ankle 4/5 Swelling R ankle to thigh edematous, tubigrip added Palpation tenderness R knee/incision. Surgical bandage in place Balance & Gait Gt with 4ww 100 feet x 3, vc for heel toe gt, hip ext. Instructed in safety, proper use of walker brakes, activity level stairs held due to no stairs at home, pt nauseous balance good seated, fair standing with walker Sensation/Reflexes intact to light touch Other/Pertinent R knee circumference Objective mid patella 47 cm 7 cm prox to patell a53 cm 7 cm distal to patella 44 cm AAROM 4-90 by end of session R knee Functional Test LEFS held due to nausea/lightheadedness Performed & Score Assessment Assessment/ Lisbet is s/p R TKA 12/23/24. She lives at [place] her own home, alone, no stairs. Adult children have been staying with her since surgery. Pt reports significant nausea, lightheadedness and constipation after surgery on Monday. She did take 1/2 oxy this am and isn't sure if it is increasing her sx. Has a scopolamine patch in place since 12/23. She arrives using her 4ww, dtr assisting at home with her ex and transport. Pt presents today with significant edema R LE, measurements taken and tubigrip placed ankle to thigh. TKA ex performed and instructed with assist HS, SAQ and LAQ, AAROM 4-90 by end of session. Pt amb 100 feet x 2 4ww did give vc for heel toe gt. Instructed in use of ice, activity level, positioning, fall prevention and her TKA ex. Pt presents with weakness, impaired ROM, impaired balance, impaired transfers, impaired amb and mobility post TKA. She will benefit from 2x/week PT to return to full AROM/strength, ind amb community distances no device. Good rehab potential . Primary Functional impaired ROM, impaired strength, impaired amb, impaired Limitations mobility, pain after R TKA Plan of Care Rehabilitation Good Potential Physical Therapy Within 10-12 weeks: Goals 1. Pt will have knee AROM 0-120 degrees for transfers, ADLs, and stairs independence. 2. Pt will amb 20 min with se cane or no device as indicated, safely and independently for community and household ambulation. 3. Pt will be independent in home ex program for terminal manager pain management and to promote independence and to decrease fall risk. 4. Pt will ascend/descend 13 stairs with railing independently for community mobility. Coordination/ Referral Source Communication With Treatment Plan/ Gait Training,Ice/Cold/Vasopneumatic,Joint Mobilization Direct Interventions ,Manual Therapy,Neuromuscular Re-ed,Orthotics/Braces, Therapeutic Activities,Therapeutic Exercises Frequency/Duration 2x/week x 10-12 weeks Patient Will Be Completion of LTG(s),Skills Plateau,Independent w/HEP, Discharged From Independently Progressing Therapy Evaluation Billing Untimed Code 10 Treatment Minutes PT Eval No Charge No Complexity Low Certification Information Initial 12/26/24 Certification Date Ending Certification 03/25/25 Date Provider Signature Yes Required Provider Signature POC & Medical Necessity Shows Agreement With Physician NPI Number Write NPI# Here Physician Comment/ : Change Physician Signature Please Sign/Date Here & Date Requested
== END 2025-02-06 14:27 | disposition home or self-care (01) ==
PROVIDERS: PCP Family Medicine; Visit Provider Orthopaedic Surgery Sports Medicine
DX: Z47.1 Aftercare following joint replacement surgery (principal); Z96.651 Presence of right artificial knee joint; Z51.89 Encounter for other specified aftercare
CPT/HCPCS: 97110; 97112; 97140; 97161

== ENCOUNTER 2025-03-07 09:30 | Outpatient (RCR) | payer MEDICARE, BC, SELFPAY | END 2025-04-15 11:39 | disposition home or self-care (01) | PROVIDERS: PCP Family Medicine; Visit Provider Family Medicine | DX: M25.511 Pain in right shoulder (principal); Z51.89 Encounter for other specified aftercare | CPT/HCPCS: 97110; 97140; 97161 ==

== ENCOUNTER 2025-03-24 08:54 | Outpatient (CLI) | payer MEDICARE, BC, SELFPAY ==
--- NOTE | 2025-03-24 09:15 | MR_ITS ---
[address] [address] Phone:?[phone] Fax:?[phone] Referring Physician Information: Golden Carey M.D. [id number] [facility] [address] Phone:?[phone] Fax:?[phone] Patient:Josep Sinha D.O.B:?1945 Sex:?Female Phone:?[phone] [facility] MRN:?[id number] Exam Date:?03/24/2025 EXAM: MRI OF THE RIGHT SHOULDER CLINICAL INFORMATION: The patient is a 80-year-old with right shoulder pain. Evaluate for rotator cuff tear. PRIOR SURGERY: None reported. COMPARISON STUDIES: Comparison is made to prior radiographs dated 03/14/2025. TECHNICAL INFORMATION: Imaging was performed on a high-field, 1.5 Irasema MR scanner. Axial, coronal, and sagittal proton-density and T2 imaging of the right shoulder was performed in addition to coronal STIR imaging. FINDINGS: Articular/Extraarticular collections: Effusion: Mild to moderate. Subacromial/subdeltoid: Mild to moderate fluid is seen within the subacromial/subdeltoid bursa, in keeping with changes of bursitis. Subcoracoid: Moderate fluid is seen within the subcoracoid bursa, in keeping with changes of bursitis. Osseous structures: Proximal humerus: Reactive bony changes are seen involving the greater tuberosity region, in keeping with the rotator cuff pathology discussed below. There is no evidence for greater or lesser tuberosity fracture. No Hill-Sachs or reverse Hill-Sachs lesion is identified. Glenoid: No acute bony abnormality of the glenoid fossa or glenoid neck can be seen. Acromioclavicular joint: Mild to moderate changes of acromioclavicular joint arthrosis are present and can be seen on coronal series 5 image 12. Coracoacromial arch: Acromion morphology: Type II. No evidence for os acromiale. Acromiohumeral space: Moderately narrowed. Coracohumeral space: Moderately narrowed. Rotator cuff and deltoid: Supraspinatus: Moderate changes of supraspinatus tendinosis can be seen with superimposed full-thickness tearing of the central and anterior fibers distally, seen to best advantage on coronal series 7 image 11 and on sagittal series 9 image 9. The area of full-thickness tearing and retraction measures 23 mm in mediolateral dimension and 19 mm in anteroposterior dimension. Mild atrophic changes of the supraspinatus muscle belly are present. Infraspinatus: Moderate infraspinatus tendinosis can be seen. There is no evidence for full or partial-thickness tearing. No atrophic changes of the infraspinatus muscle belly are seen. Teres minor: No injuries to the teres minor tendon can be seen, however atrophic changes of the teres minor muscle belly are noted. Subscapularis: Mild to moderate subscapularis tendinosis can be seen. There is no evidence for full or partial-thickness tearing. No atrophic changes of the subscapularis muscle belly are noted. Deltoid: No evidence for strain or tearing. Biceps tendon: Tendinosis and flattening of the long head of the biceps can be seen. There is no evidence for biceps rupture or dislocation. Glenohumeral joint and labrum: Articular Cartilage: No well-defined full-thickness chondral defects can be seen along the articular surfaces of the glenohumeral articulation. No definite osteoarthritic changes are seen. Labrum: Degeneration and poorly defined tearing of the glenoid labrum can be seen. No definite paralabral ganglion cyst formation is noted. Capsular Soft Tissues: No definite capsular abnormalities of the glenohumeral joint are seen. No evidence for capsular tearing is present and there are no MR signs of adhesive capsulitis. CONCLUSION: 1. Moderate supraspinatus tendinosis with superimposed full-thickness tearing as discussed above. 2. Infraspinatus and subscapularis tendinosis. 3. Mild to moderate acromioclavicular joint arthrosis with moderate narrowing of the acromiohumeral space. 4. Tendinosis and flattening of the long head of the biceps. 5. No osteoarthritic changes of the glenohumeral articulation are seen. 6. Glenohumeral joint effusion with subacromial/subdeltoid and subcoracoid bursitis. [facility] Electronically signed on 03/24/2025 10:53:00 AM by Maico Russell M.D.
== END 2025-03-24 08:55 | disposition home or self-care (01) ==
LOC: MRI 08:56
PROVIDERS: PCP Family Medicine; Visit Provider Orthopaedic Surgery Sports Medicine
DX: M25.511 Pain in right shoulder (principal); M75.101 Unspecified rotator cuff tear or rupture of right shoulder, not specified as traumatic; M19.011 Primary osteoarthritis, right shoulder; M25.411 Effusion, right shoulder; M75.51 Bursitis of right shoulder
CPT/HCPCS: 73221

== ENCOUNTER 2025-04-09 06:32 | Inpatient (IN) | payer MEDICARE, BC, SELFPAY ==
[2025-04-09] VITALS (28 sets, daily range): BP systolic 114–157; BP diastolic 63–81; PULSE 73–99; RESP 13–26; TEMP 36.4–37.3; O2SAT 90–97; BMI 31.0
[2025-04-09 07:56] LABS: Lactate* 1.0 mmol/L (0.5-1.9)
[2025-04-09 08:00] LABS: Hematocrit* 33.4 % (33.0-51.0); Hemoglobin* 10.8 gm/dL (12.0-16.0); Immature Granulocytes Abs Auto 0.03 K/uL (0.00-0.30); Immature Granulocytes Pct Auto 0.4 %; Mean Corpuscular HGB Conc 32 gm/dL (32-36); Mean Corpuscular Hemoglobin 25 pg (26-34); Mean Corpuscular Volume 78 fL (80-100); RDW Coefficient of Variation % 15.8 % (11.5-15.5); Red Blood Count* 4.30 m/uL (4.00-5.20); White Blood Count* 6.75 K/uL (4.50-11.00)
[2025-04-09 08:10] LABS: Lymphocytes Absolute Auto 0.30 K/uL (0.90-2.90); Slide Review Reflex No
--- NOTE | 2025-04-09 08:10 | ED.GENADULT ---
HPI - General Adult General Chief complaint: Fever Stated complaint: Fever Time Seen by Provider: 04/09/25 07:49 History of Present Illness HPI narrative: Patient is a 72 year white female who for 2 weeks has had intermittent fevers. She has had dysuria and some frequency. She went to a workup at the [facility] clinic and had a urine culture that showed multiple bacteria. She was sent to urologist and had a abdominal CT scan at [place] and apparently this was not read as showing any stones but some artifact due to her bilateral hip replacements. She reports she has had intermittent fevers up to 102 103. She has had chills, she had rigors and sweats bed last night, she was cold and then with sweating. She has had no chest pain but has had a chronic cough over the last 2 years which has been worked up. She reports a cough maybe a little worse. She also reports she has some left flank pain. She denies chest pain, denies shortness of breath or does report that she has had some wheezing. Records were obtained and she did have a urinalysis showed 26-50 white cells per high-powered field on 925 and then greater the 100 on 04/07 her viral studies were negative. She has had frequent UTIs in the past. She has had asthma. Past medical issues include arthritis scleroderma gas softer reflux with esophagitis nex, colon polyps, hyperlipidemia, shingles. Medications include trazodone Prilosec Cozaar Flonase ferrous sulfate esterase Ventolin inhaler atorvastatin betamethasone Symbicort Zyrtec. She has for 3 days has been on Keflex for the presumed UTI. Related Data Home Medications ?Medication ?Instructions ?Recorded ?Confirmed atorvastatin 40 mg tablet 40 mg PO DAILY 09/11/23 04/01/25 hydrochlorothiazide 25 mg tablet 25 mg PO DAILY 09/11/23 04/01/25 budesonide-formoterol HFA 80 2 puff inhalation QID PRN 11/14/23 04/01/25 mcg-4.5 mcg/actuation aerosol inhaler fluticasone propionate 50 1 spray intranasal DAILY 11/14/23 04/01/25 mcg/actuation nasal spray,suspension betamethasone, augmented 0.05 % applic topical DAILY PRN 10/18/24 04/01/25 topical cream estradiol 0.01% (0.1 mg/gram) vaginal 10/18/24 04/01/25 vaginal cream famotidine 20 mg tablet (Pepcid AC) 20 mg PO QDAY 10/18/24 04/01/25 omeprazole 40 mg capsule,delayed 40 mg PO DAILY 10/18/24 04/01/25 release psyllium husk 0.4 gram capsule 0.4 g PO QDAY 11/25/24 04/01/25 (Metamucil) trazodone 50 mg tablet 50 mg PO QPM PRN 11/25/24 04/01/25 albuterol sulfate 90 mcg/actuation 2 inh inhalation Q4H PRN 12/20/24 04/01/25 aerosol inhaler olopatadine 0.2 % eye drops 1 drp ophthalmic (eye) DAILY 12/23/24 04/01/25 (Pataday Once Daily Relief) losartan 50 mg tablet 50 mg PO DAILY 03/14/25 04/01/25 apple cider vinegar 300 mg tablet mg PO 04/01/25 04/01/25 ibuprofen PO PRN 04/01/25 04/01/25 Allergies Allergy/AdvReac Type Severity Reaction Status Date / Time No Known Drug Allergies Allergy Verified 04/09/25 07:27 Review of Systems Status of ROS: Reports: 6 or more systems reviewed and unremarkable except as noted in History and below [facility] Medical History Anemia ?D64.9 - Anemia, unspecified (ICD-10) Anemia ?D64.9 - Anemia, unspecified (ICD-10) Constipation ?K59.00 - Constipation, unspecified (ICD-10) Asthma ?J45.909 - Unspecified asthma, uncomplicated (ICD-10) Paroxysmal tachycardia ?I47.9 - Paroxysmal tachycardia, unspecified (ICD-10) Unspecified hemorrhoids without mention of complication ?K64.9 - Unspecified hemorrhoids (ICD-10) Shingles ?B02.9 - Zoster without complications (ICD-10) Stress incontinence in female ?N39.3 - Stress incontinence (female) (male) (ICD-10) Insomnia ?G47.00 - Insomnia, unspecified (ICD-10) Primary osteoarthritis of right knee ?M17.11 - Unilateral primary osteoarthritis, right knee (ICD-10) History of colon polyps ?Z86.0100 - Personal history of colon polyps, unspecified (ICD-10) Gastroesophageal reflux disease with esophagitis ?K21.00 - Gastro-esophageal reflux disease with esophagitis, without bleeding (ICD-10) Other and unspecified hyperlipidemia ?E78.5 - Hyperlipidemia, unspecified (ICD-10) 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 ?D04.5 - Carcinoma in situ of skin of trunk (ICD-10) Basal cell carcinoma (BCC) of skin of left lower extremity including hip ?C44.719 - Basal cell carcinoma of skin of left lower limb, including hip (ICD-10) 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 - Localized scleroderma [morphea] (ICD-10) Paroxysmal SVT (supraventricular tachycardia) ?I47.10 - Supraventricular tachycardia, unspecified (ICD-10) Hypertension ?I10 - Essential (primary) hypertension (ICD-10) Surgical History Status post right knee replacement (12/23/24) ?Z96.651 - Presence of right artificial knee joint (ICD-10) History of phacoemulsification of cataract of both eyes with intraocular lens implantation ?Z98.41 - Cataract extraction status, right eye (ICD-10) ?Z98.42 - Cataract extraction status, left eye (ICD-10) ?Z96.1 - Presence of intraocular lens (ICD-10) History of total knee arthroplasty ?Z96.659 - Presence of unspecified artificial knee joint (ICD-10) History of hysterectomy ?Z90.710 - Acquired absence of both cervix and uterus (ICD-10) S/P left knee arthroscopy (07/20/00) ?Z98.890 - Other specified postprocedural states (ICD-10) History of cholecystectomy ?Z90.49 - Acquired absence of other specified parts of digestive tract (ICD-10) H/O hemorrhoidectomy ?Z98.890 - Other specified postprocedural states (ICD-10) History of total left hip arthroplasty (2011) ?Z96.642 - Presence of left artificial hip joint (ICD-10) History of total right hip arthroplasty ?Z96.641 - Presence of right artificial hip joint (ICD-10) H/O colonoscopy ?Z98.890 - Other specified postprocedural states (ICD-10) H/O endoscopy ?Z98.890 - Other specified postprocedural states (ICD-10) H/O esophagogastroduodenoscopy ?Z98.890 - Other specified postprocedural states (ICD-10) Family History Mother Breast cancer Diabetes High blood pressure Aunt Breast cancer Grandmother Breast cancer Brother Diabetes Father High blood pressure Social History Narrative: She lives alone in [place]. She can live on 1 level in her home. Her 2 daughters will be assisting her of during her 1st week and her sister will come to a sister in her 2nd week postop. She does not smoke or drink alcohol What is your current living situation?: I presently have a place to live Problems where you live: no known problems In the past 12 months, utilities in danger of being shut off: no In past 12 months, lack of transportation kept you from medical appts, meetings, work, or getting things needed for daily living: no In the past 12 mos, have been you worried that your food would run out before you had money to buy more?: never true In the past 12 mos, the food you bought just didn't last and you didn't have money to buy more?: never true Smoking Status: Never smoker Do you use any of these nicotine containing products: None Second hand tobacco smoke exposure: No How often do you have a drink containing alcohol: never How often do you have six or more drinks on one occasion: Never AUDIT-C Alcohol total score: 0 Non-prescribed substance use: denies use Caffeine: No How often does anyone, including family, friends and others, physically hurt you: never How often does anyone, including family, friends and others, insult or talk down to you: never How often does anyone, including family, friends and others, threaten you with harm: never How often does anyone, including family, friends and others, scream or curse at you: never service: No Exam Narrative: Exam Narrative: Objective: Patient's shows a temperature 99.2? other vital signs look within normal limits She is awake alert, has a frequent coarse cough. She is noncyanotic Talks in even and nonlabored sentences. HEENT is unremarkable in dry mucous membranes her hair is somewhat matted to her head from sweat and perspiration Neck is supple Chest right lower lobe rales, no obvious wheezing Heart rhythm regular with 2/6 systolic murmur Abdomen benign nontender Left CVA tenderness noted to palpation Extremities are no edema like sign neurologic grossly nonfocal Good peripheral perfusion noted. Const: Vital Signs, click to edit/add: Vital Signs - 24 hr 04/09/25 07:15 04/09/25 07:29 04/09/25 07:30 Temperature 99.2 F Pulse Rate 85 85 Pulse Rate [Pulse Oximeter] 99 Respiratory Rate 20 19 Blood Pressure Blood Pressure [Ri ght Upper Arm] 114/69 Pulse Oximetry 94 90 92 Oxygen Delivery Me thod Room Air 04/09/25 07:31 04/09/25 07:45 04/09/25 07:46 Temperature Pulse Rate 87 87 88 Pulse Rate [Pulse Oximeter] Respiratory Rate 17 Blood Pressure 131/73 143/78 H Blood Pressure [Ri ght Upper Arm] Pulse Oximetry 91 93 93 Oxygen Delivery Me thod 04/09/25 08:00 04/09/25 08:01 04/09/25 08:21 Temperature Pulse Rate 82 83 89 Pulse Rate [Pulse Oximeter] Respiratory Rate 21 20 26 H Blood Pressure 135/77 Blood Pressure [Ri ght Upper Arm] Pulse Oximetry 93 92 94 Oxygen Delivery Me thod 04/09/25 08:35 04/09/25 08:36 04/09/25 08:45 Temperature Pulse Rate 80 78 76 Pulse Rate [Pulse Oximeter] Respiratory Rate 26 H 17 Blood Pressure 122/80 Blood Pressure [Ri ght Upper Arm] Pulse Oximetry 96 96 95 Oxygen Delivery Me thod 04/09/25 08:46 04/09/25 08:47 04/09/25 09:00 Temperature Pulse Rate 76 76 74 Pulse Rate [Pulse Oximeter] Respiratory Rate 20 20 20 Blood Pressure 125/67 Blood Pressure [Ri ght Upper Arm] Pulse Oximetry 94 94 94 Oxygen Delivery Me thod 04/09/25 09:01 04/09/25 09:15 04/09/25 09:17 Temperature Pulse Rate 73 77 75 Pulse Rate [Pulse Oximeter] Respiratory Rate 19 20 Blood Pressure 129/64 128/70 Blood Pressure [Ri ght Upper Arm] Pulse Oximetry 94 93 92 Oxygen Delivery Me thod Course Vital Signs Vital signs: Initial Vital Signs Temperature 99.2 F 04/09/25 07:15 Temperature Source Temporal Artery Scan 04/09/25 07:15 Pulse Rate 99 04/09/25 07:15 Pulse Rhythm Regular 04/09/25 07:15 Pulse Strength 3+ Normal 04/09/25 07:15 Respiratory Rate 20 04/09/25 07:15 Blood Pressure 114/69 04/09/25 07:15 Blood Pressure Mean 84 04/09/25 07:15 Pulse Oximetry 94 04/09/25 07:15 Oxygen Delivery Method Room Air 04/09/25 07:15 Vital Signs Temperature 99.2 F 04/09/25 07:15 Pulse Rate 99 04/09/25 07:15 Respiratory Rate 20 04/09/25 07:15 Blood Pressure 114/69 04/09/25 07:15 Pulse Oximetry 94 04/09/25 07:15 Oxygen Delivery Method Room Air 04/09/25 07:15 Temperature 99.2 F 04/09/25 07:15 Pulse Rate 75 04/09/25 09:17 Respiratory Rate 20 04/09/25 09:15 Blood Pressure 128/70 04/09/25 09:17 Pulse Oximetry 92 04/09/25 09:17 Oxygen Delivery Method Room Air 04/09/25 07:15 Medications Administered Medications: Generic Name Dose Route Start Last Admin Trade Name Freq PRN Reason Stop Dose Admin Sodium Chloride 2,697.06 mls @ 899.02 mls/hr 04/09/25 08:15 04/09/25 08:49 0.9 % Sodium Chloride 1000 Ml 30 ml/kg infuse over 3 hr (2697.06 ml) 04/09/25 11:14 899.02 mls/hr IV Administration .Q3H ROGELIO Discontinued Medications Generic Name Dose Route Start Last Admin Trade Name Freq PRN Reason Stop Dose Admin Piperacillin Sod/Tazobactam 100 mls @ 200 mls/hr 04/09/25 08:10 04/09/25 09:20 Sod 4.5 gm/ Sodium Chloride IVPB 04/09/25 08:11 Infused ONCE ONE Infusion Azithromycin 500 mg/ Sodium 255 mls @ 255 mls/hr 04/09/25 08:15 04/09/25 09:19 Chloride IVPB 04/09/25 09:14 255 mls/hr ONCE ONE Administration Methylprednisolone Sodium Succinate 125 mg 04/09/25 08:10 04/09/25 08:40 Methylprednisolone Sod Succ 62.5 Mg/Ml (125) IVP 04/09/25 08:11 125 mg ONCE ONE Administration Medical Decision Making MDM Narrative Medical decision making narrative: [age] year white female rigors, fever, probable urosepsis. At this point her vital signs look reassuring, although I think treating her for the sepsis protocol be appropriate with 30 mL/kilos fluid, antibiotics. Will start with Zosyn and vancomycin, but because she also has a cough and right lower lobe rales will give her Zithromax as well. Will check a CT scan of her chest abdomen pelvis without contrast, to exclude renal stone or other abnormality. It appears from her left flank pain she has probably got pyelonephritis. Will treat aggressively as above. Given her duration of illness of a couple of weeks I think admission to the hospital be appropriate. This will be for IV fluid, IV antibiotics and waiting or cultures. Addendum 9:23 a.m.: Patient's CT scan of the chest abdomen pelvis shows some pulmonary nodules, no obvious pneumonia noted, the patient does have some stranding around her sigmoid colon consistent with mild diverticulitis, but she also has left perinephric stranding which would be more consistent with her clinical presentation of pyelonephritis. Her urinalysis and white count are not that abnormal, but I suspect that might be from a partially treated urinary tract infection/pyelonephritis. I think the patient would benefit from IV antibiotics to continue in the hospital for 24 hours until clinical improvement noted, CRP is markedly elevated at 14 and this could be tracked. Will discuss with hospitalist. Given the patient's presentation of rigors, night sweats, and persistent fever in the 909591 range, I suspect this is still related to pyelonephritis. Given the patient's duration of illness, and her rigors and chills, I think she requires inpatient hospitalization and likely be here more than 2 midnights, will likely treat with antibiotics for a good period of time. Lab Data Labs: Lab Results 04/09/25 04/09/25 Range/Units 07:50 08:10 WBC 6.75 (4.50-11.00) K/uL RBC 4.30 (4.00-5.20) m/uL Hgb 10.8 L (12.0-16.0) gm/dL Hct 33.4 (33.0-51.0) % MCV 78 L (80-100) fL MCH 25 L (26-34) pg MCHC 32 (32-36) gm/dL RDW Coeff of Benigno 15.8 H (11.5-15.5) % Plt Count 238 (140-440) K/uL Neut % (Auto) 83.3 H (42.0-72.0) % Lymph % (Auto) 4.0 L (20-44) % Villalba % (Auto) 11.4 H (0.0-11.0) % Eos % (Auto) 0.3 (0.0-7.0) % Baso % (Auto) 0.6 (0.0-3.0) % Neut # (Auto) 5.60 (1.7-7.0) K/uL Lymph # (Auto) 0.30 L (0.90-2.90) K/uL Villalba # (Auto) 0.80 (0.00-0.90) K/UL Eos # (Auto) 0.02 (0.00-0.50) K/uL Baso # (Auto) 0.04 (0.00-0.30) K/uL Abs Immat Gran (auto) 0.03 (0.00-0.30) K/uL Imm/Tot Granulo (auto) 0.4 % Sodium 131 L (135-149) mmol/L Potassium 3.2 L (3.6-5.1) mmol/L Chloride 97 (96-114) mmol/L Carbon Dioxide 26 (20-32) mmol/L Anion Gap 8 (7-15) mEq/L BUN 20 (7-30) mg/dL Creatinine 1.0 (0.5-1.5) mg/dL Estimated Creat Clear 45.09 Estimated GFR 58 ml/min Glucose 124 H (60-115) mg/dL Lactate 1.0 (0.5-1.9) mmol/L Calcium 9.1 (8.4-10.6) mg/dL C-Reactive Protein 14.1 H (0.5-1.0) mg/dL Urine Color Yellow (Yellow) Urine Appearance Clear (Clear) Urine pH 6.5 (5.0-8.5) Ur Specific [place] 1.015 (1.000-1.030) Urine Protein Trace A (Negative) Urine Glucose (UA) Negative (Negative) Urine Ketones Negative (Negative) Urine Blood Negative (Negative) Urine Nitrite Negative (Negative) Urine Bilirubin Negative (Negative) Urine Urobilinogen 0.2 (0.2-1.0) Ur Leukocyte Esterase Negative (Negative) Urine RBC 0-2 (0-2) Urine WBC 2-5 (0-5) Ur Squamous Epith Cells Moderate A (None-Few) Urine Bacteria Few A (None) Discharge Plan Discharge Clinical Impression: Acute pyelonephritis, Sepsis, Pneumonia Patient Disposition: Admitted As Inpatient
[2025-04-09 08:12] LABS: Chloride* 97 mmol/L (96-114); Potassium* 3.2 mmol/L (3.6-5.1); Sodium* 131 mmol/L (135-149)
--- NOTE | 2025-04-09 08:12 | CRLHL7_ITS ---
For Patients: As a result of the Century Cures Act, medical imaging exams and procedure reports are released immediately into your electronic medical record. You may view this report before your referring provider. If you have questions, please contact your health care provider. INDICATION: Sepsis TECHNIQUE: CT chest, abdomen and pelvis acquired without contrast. COMPARISON: Chest CT 10/10/2023, CT urogram 04/03/2025 FINDINGS: CHEST: Cardiovascular structures: Heart size is normal. Thoracic aorta and main pulmonary artery are normal in caliber. Moderate coronary artery calcifications. Small amount of atherosclerotic plaque throughout the aorta. Mediastinum and mary: No mass or adenopathy. Lungs and pleura: Similar right lower lobe solid nodule measuring 5 mm (3/38), previously 4 mm in 2023. Decreased right middle lobe solid nodule measuring 4 mm (3/61), previously 5 mm in 2023, although this now has a more endobronchial appearance. Similar solid nodule versus mucous plugging in the right lower lobe (3/34). Stable subcentimeter left upper lobe calcified granulomas. Chest wall and axilla: No mass or adenopathy. Bones: No suspicious bone lesions. Bilateral glenohumeral joint degenerative change ABDOMEN AND PELVIS: Liver: Unremarkable. Gallbladder and bile ducts: Prior cholecystectomy. Pancreas: Unremarkable. Spleen: Unremarkable. Adrenal glands: Unremarkable. Kidneys: Mild left perinephric stranding. 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 Vascular structures: Abdominal aorta is normal in caliber. Lymph nodes: Possibly new borderline enlarged left para-aortic lymph node measuring 9 mm (2/122). Miscellaneous: Small amount of stranding in the pelvis, particularly adjacent to the sigmoid colon (6/2 and 4). No free air or significant free fluid. Pelvic Organs: Prior hysterectomy. Bones: Bilateral hip arthroplasty no suspicious bone lesions. Unremarkable for age. IMPRESSION: 1. Streak artifact from bilateral hip arthroplasties limits evaluation, however there is mild stranding in the pelvis adjacent to the sigmoid colon, which may represent an acute colitis or diverticulitis. No definite evidence of fluid collection or perforation. 2. Mild left perinephric stranding is nonspecific, please correlate with urinalysis to exclude possibility of pyelonephritis. 3. Possibly new borderline enlarged left retroperitoneal lymph node, nonspecific. Please note that all CT scans at this facility use dose modulation, iterative reconstruction, and/or weight-based dosing when appropriate to reduce radiation dose to as low as reasonably achievable. Dictated by Lilian Samaniego MD @ 04/09/2025 9:11:38 AM (Electronically Signed)
[2025-04-09 08:15] LABS: Anion Gap 8 mEq/L (7-15); Blood Urea Nitrogen* 20 mg/dL (7-30); Calcium* 9.1 mg/dL (8.4-10.6); Carbon Dioxide* 26 mmol/L (20-32); Creatinine* 1.0 mg/dL (0.5-1.5); Est. Creatinine Clearance* 45.09; Estimated Glomerular Filt Rate 58 ml/min; Glucose* 124 mg/dL (60-115)
[2025-04-09 08:22] LABS: Appearance Urine Clear (Clear)
[2025-04-09] MEDS: METHYLPREDNISOLONE SOD SUCC 62.5 MG/ML (125) 125 MG IVP (08:40)
[2025-04-09] MEDS: PIPERACILLIN/TAZOBACTAM 4.5 GM in 0.9 % SODIUM CHLORIDE Mini-bag 100 ML IVPB ×3 (08:41→21:11)
[2025-04-09] MEDS: SODIUM CHLORIDE 899.02 ML IV (08:49)
--- OUTSIDE RECORDS SUMMARY | 2025-04-09 09:02 | XMS_ITS | Clinical Summary ---
Author Organization [facility] Address [address] [place] [address] Care Team Providers [employer] Name Role Phone Stella Rolle Unavailable [phone] Lety Ingram MD Primary Care Provider Allergies Active Allergy Reactions Criticality Noted Date Comments Cats (Fur, Dander, Saliva) Cough 5 Slight allergy Medications betamethasone, augmented dipropianate 0.05% (DIPROLENE AF) 0.05 % cream 08/18/19 21 Active Apple Cider Vinegar 600 mg cap Take 1,200 mg by mouth. 0 12/28/19 22 Active ferrous sulfate 325 mg delayed release tablet Take 325 mg by mouth once daily. Active hydroCHLOROthiazid e 25 mg tabletIndications: Hypertension Take 1 Tablet (25 mg) by mouth once daily. 90 Tablet 3 04/08/20 24 Active traZODone (DESYREL) 50 mg tabletIndications: Sleep disorder Take 1-2 Tablets (50-100 mg) by mouth at bedtime if needed for Sleep. 180 Tablet 3 04/08/20 24 Active estradioL (ESTRACE) 0.01% (0.1 mg/g) vaginal creamIndications:R ecurrent UTI,Vaginal atrophy Apply a pea sized amount to your urethral meatus (where you pee from) and then into the vagina. Do this nightly for two weeks and then 2 times per week. 42.5 g 3 08/21/19 25 Active Additional Information Patient taking differently: 1 g Vaginal EACH TIME PRN, Apply a pea sized amount to your urethral meatus (where you pee from) and then into the vagina. Do this nightly for two weeks and then 2 times per week., Reported on 03/28/2025 cranberry [id number] 157.5-500 mg cap Take by mouth. Active atorvastatin 40 mg tabletIndications: Hyperlipidemia, unspecified hyperlipidemia type Take 1 Tablet (40 mg) by mouth at bedtime. 90 Tablet 3 12/21/19 25 Active omeprazole (PRILOSEC) 40 mg Delayed-Release capsuleIndications :Gastroesophageal reflux disease, unspecified whether esophagitis present TAKE ONE CAPSULE BY MOUTH ONCE EVERY DAY BEFORE A MEAL. 90 Capsule 2 02/17/20 25 Active albuterol HFA (PRO-AIR; VENTOLIN; PROVENTIL) 90 mcg/actuation inhalerIndications :Chronic cough,Cough variant asthma (HC),Asthma, unspecified asthma severity, unspecified whether complicated, unspecified whether persistent (HC),PND (post-nasal drip) Inhale 2 Puffs by mouth every 4 hours if needed for Shortness of Breath 1st choice or Wheezing 2nd choice (cough). 3 Each 3 02/21/20 25 Active cetirizine (ZYRTEC) 10 mg tabletIndications: Chronic cough,PND (post-nasal drip) Take 1 Tablet (10 mg) by mouth once daily. 90 Tablet 1 02/21/20 25 Active budesonide-formote roL (SYMBICORT,BREYNA) 160-4.5 mcg/actuation (160-4.5 mcg each actuation) inhalerIndications :Chronic cough,Cough variant asthma (HC),Asthma, unspecified asthma severity, unspecified whether complicated, unspecified whether persistent (HC),PND (post-nasal drip) Inhale 2 Puffs by mouth two times daily. 1 Each 3 02/25/20 25 Active fluticasone (50 mcg per actuation) nasal solution (FLONASE)Indicatio ns:Chronic cough,PND (post-nasal drip) Inhale 1 [place] in both nostrils two times daily. 16 g 2 02/25/20 25 Active losartan (COZAAR) 50 mg tabletIndications: HTN (hypertension) TAKE ONE TABLET (50MG) BY MOUTH EVERY DAY. 90 Tablet 2 02/29/20 25 Active cephalexin 500 mg capsuleIndications :Complicated UTI (urinary tract infection) Take 1 Capsule (500 mg) by mouth three times daily for 7 days. 21 Capsule 04/07/20 25 025 Active calcium carbonate-vitamin D3, 600 mg-400 unit, (Calcium 600 + D) 600 mg-10 mcg (400 unit) tablet 03/10/20 24 025 Discontin ued(*Marissa ent states no longer taking) Mucus Clearing Device deviIndications:Ch ronic cough,Asthma, unspecified asthma severity, unspecified whether complicated, unspecified whether persistent (HC),PND (post-nasal drip) As directed. Use as directed. For home use. Lifetime length of need. Diagnosis : chronic cough with phlegm and asthma. High vibration (green). 02/21/20 25 025 Discontin ued(*Marissa ent states no longer taking) Active Problems Problem Noted Date Diagnosed Date [...] Encounters Date Type Department Care Team Description 04/07/2025 2:40 PM CDT Office [facility] [address] [facility] [address] Lety Ingram MD Fever 04/07/2025 Travel 04/07/[address] [phone] Stella Rolle PA symptoms 04/03/2025 3:00 PM CDT Ancillary Procedure [facility] [address] [facility] [place] [address] 04/03/2025 2:00 PM CDT Orders Only [facility] [address] [facility] [address] [place] <No scans attached> 04/03/2025 10:00 AM CDT Phone Office Visit [address] [phone] Stella Rolle PA Urinary Problem 04/03/2025 Travel 04/02/2025 Orders Only [facility] [address] [place] [address] Lety Ingram MD <No scans attached> 04/02/[address] [phone] Stella Rolle PA UTI (Frequent uti-order) 03/30/2025 Travel 03/28/2025 9:00 AM CDT Office Visit [address] [phone] Stella Rolle PA Follow Up (BLADDER PAIN / FREQUENT UTI) 03/28/2025 Travel 03/24/2025 Orders Only [facility] Scanner 1 scan: (1-Ord) [facility], MRI OF THE RIGHT SHOULDER, 03/24/2025 03/23/2025 Travel 02/27/2025 10:45 AM CDT Orders Only [facility] [address] [facility] [address] [place] <No scans attached> 02/27/2025 9:40 AM CDT E-Visit [facility] [address] [facility] [address] Lety Ingram MD eVisit for Urinary Tract Infection 02/27/2025 Travel 02/26/2025 Refill [facility] [address] [place] [address] Lety Ingram MD Refill Request (Losartan) 02/20/2025 2:30 PM CDT Office Visit [facility] [address] [place] [address] Jan Del Castillo PA Follow Up (Asthma/cough worsening) 02/20/2025 Telephone [facility] [address] [facility] [address] [phone] Jan Del Castillo PA Medication Management 02/20/2025 Travel 02/15/2025 Travel 02/13/2025 12:50 PM CDT Office Visit [facility] [address] [place] [address] Ebonie Singleton PA UTI 02/13/2025 Refill [facility] [address] [place] [address] Lety Ingram MD Refill Request (Omeprazole) 02/13/2025 Travel 01/23/2025 Nurse Triage [facility] [address] [place] [address] Lety Ingram MD Dizziness (Near fainting spell) 01/23/2025 Nurse Triage [facility] Nurse Triage Lety Ingram MD Dizziness; Traige Dizziness 01/20/2025 12:10 PM CDT E-Visit [facility] [address] [place] [address] Lety Ingram MD eVisit for Cold/Flu/Covid 01/17/2025 Orders Only [facility] Scanner 1 scan: (1-Ord) [place], ANGIO CHEST PE PROTOCOL, 01/17/2025 01/16/2025 Medical Messaging [facility] [address] [place] [address] Lety Ingram MD rehab from Last 3 Months Immunizations Immunization Administration [...] mos) 04/09/2012,2010,04/01/2009 Influenza, IIV3 (Age >=3 years) 04/08/20 24,04/06/2023,04/01/2022,03/10,03/26/2020,04/15/2019,04/02/2018 ,05/04/2017,03/30/2015,04/04/2013,100 07/2011,03/10/2012,04/09/2011, 0,06/15/2009,04/01/2009,05/08/2008, Influenza, Inactivated AIIV4 (Age 65+ Years) Preserv Free 04/06/2023,04/01/2022,03/10/2021 Influenza, Inactivated IIV3 (Age 65+ Years) Preserv Free 04/08/2024,04/02/2018,05/04/2017 Pneumococcal Conj 20-valent (Prevnar 20) 07/27/2024 Pneumococcal Poly,23-Valent (Pneumovax) 02/05/2013 Pneumococcal conj 13-Valent (Prevnar 13) 06/16/2015 RSV, Recombinant ADJ Reconst ituted (Arexvy 120MCG/0.5mL) 04/17/2024 Td (Age >=7 Years) 11/29/1996 Tdap 12/26/2006 [...] or isolated from those around you? 0 02/13/2025 Alcohol Use Answer Date Recorded How often do you have a drink containing alcohol ? 0 03/28/2025 Average Number of Drinks Not on file 025 Frequency of Binge Drinking Not on file 03/10 Financial Resource Strain Answer Date R ecorded Difficulty of Paying Living Expenses 3 02/13/2025 Difficulty of Paying Living Expenses Not on file 02/13/2025 Food Insecurity Answer Date Recorded Do you worry your food will run out before you are able to buy more? 1 02/13/2025 Transportation Needs Answer Date Record ed Does lack of transportation keep you from medica l appointments? 1 02/13/2025 Does lack of transportation keep you from work, meetings or getting things that you need? 1 02/13/2025 Housing Stability Answer Date Recorded What is your housing situation today? 1 02/13/2025 Utilities Answer Date Recorded Do you have trouble paying f or utilities (for example, heat, electricity, water, phone)? 1 02/13/2025 Comments No Sex and Gender Information Value Date Recorded Sex Assigned at Not on file Legal Sex Female 5:46 AM [employer] Gender Identity Not on file Sexual Orientation Not on file Occupation Industry Job Start Date Job End Date retired, working now at [employer] Not on file Not on f ile Not on file Obstetrics History Para Term AB IAB SAB Ectopic Multiple Livin g Live Births 2 2 2 2 Date Outcome GA Total Labor Labor/2nd/3rd Weight Sex Type Anes PTL Miranda A1 A5 Name Clin Term Term Last Filed Vital Signs Vital Sign Reading Time Taken Comments Blood Pressure 114/70 04/07/2025 9:52 AM CDT Pulse 92 04/07/2025 9:52 AM CDT Temperature 37.4 C (99.4 F) 04/07/2025 9:52 AM CDT Respiratory Rate 16 02/20/2025 2:21 PM CDT Oxygen Saturation 94% 04/07/2025 9:52 AM CDT Inhaled Oxygen Concentration - - Weight 90.3 kg (199 lb) 04/07/2025 9:52 AM CDT Height 165.1 cm (5' 5) 02/20/2025 2:21 PM CDT Body Mass Index 33.12 02/20/2025 2:21 PM CDT Plan of Treatment Upcoming Encounters Date Type Department Care Team (Late st Contact Info) Description 05/22/2025 1:30 PM [employer] Procedure Only [address] [place] [phone] Tuan Villatoro MD [address] [place] [address] 05/29/2025 2:00 PM [employer] Office Visit [facility] [address] [place] [address] Lety Ingram MD [address] [place] [address] 07/24/2025 4:00 PM [employer] Office Visit [address] [phone] Damián Mckeon MD [address] [place] [address] Health Maintenance Due Date Last Done Comments COVID-19 vaccine series ( season) 2025 03/09/2024, 04/21/2023, 04/01/2022, Additional history exists Influenza Vaccine (#1) 2025 , 04/08/2024, 04/06/2023, Additional history exists Depression screening for age 12+ 04/08/2025 04/08/2024, 04/06/2023, 04/01/2022, Additional history exists Medicare Wellness for age 65+ 04/09/2025, 04/06/2023, 04/01/2022, Additional history exists BMI (ht and wt on same day) for age 18+ 02/20/2026 02/20/2025, 12/05/2024, 04/08/2024, Additional history exists Tetanus booster 12/21/2027 12/20/2017, 12/08, 12/26/2006, Additional history exists Hepatitis B series for 19+ Completed 11/24, 06/23/1993, 05/26/1993 Zoster (shingles) series for age 50+ Completed 03/14/2018, 01/08/2018, 01/08/2018, Additional history exists Hepatitis C screening for ag e 18-79 Completed 02/10/2020 DEXA/DXA scan for age 65+ Completed 2023, 12/07/2017, 05/21/2010, Additional history exists RSV vaccine for adults or Completed 04/17/2024 Pneumococcal series for age 50+ Completed 07/27/2024, 06/16/2015, 02/05/2013 Procedures Procedure Name Priority Date/Time Associated Diagnosis Comments COVID/FLU/RSV PANEL Routine 04/07/2025 1 0:27 AM CDT Fever, unspecified fever cause URINALYSIS MICROSCOPIC Routine 9:54 AM CDT Frequent UTI URINE CULTURE Routine 04/07/2025 9:54 AM CDT Frequent UTI URINALYSIS MACROSCOPIC - [facility] ONLY POC DIP ([facility]) Routine 04/07/2025 9:54 AM CDT Frequent UTI CT ABDOMEN PELVIS UROGRAM WWO Routine 04/03/2025 2:42 PM CDT Microhematuria CREATININE,ISTAT Routine 04/03/2025 2:12 PM CDT Observation or evaluation for suspected condition URINALYSIS MICROSCOPIC Routine 1:46 PM CDT Urinary symptom or sign URINE CULTURE Routine 04/03/2025 1:46 PM CDT Urinary symptom or sign UA W/ SEDIMENT EXAM REFLEXED PER CRITERIA Routine 04/03/2025 1:46 PM CDT Urinary symptom or sign SCAN-MRI INTERPRETATION 03/24/2025 12:00 AM CDT URINALYSIS MICROSCOPIC Routine 08/21/202 5 10:38 AM CDT Dysuria URINE CULTURE Routine 02/27/2025 10:38 AM CDT Dysuria URINALYSIS MACROSCOPIC - [facility] ONLY POC DIP ([facility]) Routine 02/27/2025 10:37 AM CDT Dysuria PA SPMTRY W/VC EXPIRATORY GERARDO W/WO MXML VOL VNTJ Routine 02/20/2025 12:00 AM CDT Chronic cough Cough variant asthma (HC) Asthma, unspecified asthma severity, unspecified whether complicated, unspecified whether persistent (HC) URINALYSIS MACROSCOPIC - [facility] ONLY POC DIP ([facility]) Routine 02/13/2025 1:13 PM CDT Lower urinary tract symptoms (LUTS) URINE CULTURE Routine 02/13/2025 1:12 PM CDT Lower urinary tract symptoms (LUTS) URINALYSIS MICROSCOPIC Routine 5 1:12 PM CDT Lower urinary tract symptoms (LUTS) SCAN-CT INTERPRETATION 5 12:00 AM CDT XR DXA BONE DENSITY 1 SITE AXIAL AND 1 SITE PERIPHERAL Routine 01/17/2024 9:11 AM CDT Menopause ANTI HCV Routine 02/10/2020 11:22 AM CDT Need for hepatitis C screening test from Last 3 Months or Most Recently Relevant to Health Maintenance Results * COVID/FLU/RSV PANEL (04/07/2025 10:27 AM CDT) COVID 19 [facility] Negative Negative 04/07/2025 6:32 PM CDT [facility] INFLUENZA A PCR Negative 5 6:32 PM CDT [facility] INFLUENZA B PCR Negative 5 6:32 PM CDT [facility] Respiratory Syncytial Virus Negative 04/07/2025 6:32 PM CDT [facility] Swab SPECIMEN FROM NASAL FOSSAE / Unknown Non-Blood / Unknown 04/07/2025 10:27 AM CDT 04/07/2025 10:27 AM CDT Lety Ingram MD MICROBIOLOGY Final R esult [facility] [address] [place] [address], * (ABNORMAL) POCT Urinalysis Dipstick Only [[id number]] (04/07/2025 9:54 AM CDT) Only the most recent of3 resultswithin the time period is included. SPECIFIC GRAVITY 1.020 1.001 - 1.035 04/07/2025 10:10 AM CDT [facility] PROTEIN 3+(A) NEGATIVE 04/07/2025 10:10 AM CDT [facility] GLUCOSE NEGATIVE NEGATIVE 04/07/2025 10:10 AM CDT [facility] KETONES NEGATIVE NEGATIVE 04/07/2025 10:10 AM CDT [facility] BILIRUBIN NEGATIVE NEGATIVE 04/07/2025 10:10 AM CDT [facility] OCCULT BLOOD 2+(A) NEGATIVE 04/07/2025 10:10 AM CDT [facility] NITRITE NEGATIVE NEGATIVE 04/07/2025 10:10 AM CDT [facility] PH 6.0 5.0 - 8.0 04/07/2025 10:10 AM CDT [facility] LEUKOCYTE ESTERASE 3+(A) NEGATIVE 04/07/2025 10:10 AM CDT [facility] Urine URINE SPECIMEN / Unknown Non-Blood / Unknown 04/07/2025 9:54 AM CDT 04/07/2025 10:04 AM CDT Lety Ingram MD URINE Final R esult [facility] [address] [address], [place] [phone] [facility] [address] [address], [place] [phone] * (ABNORMAL) URINALYSIS MICROSCOPIC [13378.1] - routine (04/07/2025 9:54 AM CDT) Only the most recent of4 resultswithin the time period is included. RBC 6-10(A) 0-2, None Seen /HPF 04/07/2025 4:20 PM CDT [facility] WBC >100(A) 0-2, 3-5, None Seen /HPF 04/07/2025 4:20 PM CDT [facility] BACTERIA Many(A) None Seen, Rare, Few Bacteria/ HPF 04/07/2025 4:20 PM CDT [facility] EPITHELIAL CELLS Few None Seen, Few Epi/HPF 04/07/2025 4:20 PM CDT [facility] WHITE CELL CLUMPS Present(A) (none) 04/07/2025 4:20 PM CDT [facility] TRA [facility] HYALINE CASTS 0-2 0-2, 3-5 /LPF 04/07/2025 4:20 PM CDT [facility] Urine URINE SPECIMEN / Unknown Non-Blood / Unknown 04/07/2025 9:54 AM CDT 04/07/2025 10:04 AM CDT Narrative [facility] - 04/07/2025 4:20 PM CDT There are numerous leukocytes (packed WBC) which may affect the accuracy of results. Interpret with caution. us Lety Ingram MD URINE Final R esult [facility] [address] [place] [address], [place] * (ABNORMAL) URINE CULTURE [25323.2] (04/07/2025 9:54 AM CDT) Only the most recent of4 resultswithin the time period is included. CULTURE RESULT(A) 04/09/2025 6:54 AM CDT [facility] CULTURE >100,000 CFU/mL Escherichia coli 04/09/2025 6:54 AM CDT [facility] CULTURE <10,000 CFU/mL Multiple organisms probable contaminants 04/09/2025 6:54 AM CDT [facility] Urine URINE SPECIMEN / Unknown Non-Blood / Unknown 04/07/2025 9:54 AM CDT 04/07/2025 10:04 AM CDT Narrative Organism Antibiotic Method Susceptibility Escherichia coli TRIMETHOPRIM/SULF <=/19: S Escherichia coli AMPICILLIN >=32: R Escherichia coli CEFAZOLIN 8: R Escherichia coli CEFAZOLIN-UC 8: S Comment:Cefazolin-UC interpretations are for therapy of uncomplicated UTIs due to E.coli, K.pneumoniae, or P.mirablis. Cefazolin breakpoint is used as a surrogate to predict results for the oral agents - cefdinir, cefuroxime, and cephalexin, when used for therapy of uncomplicated UTIs due to E coli, K, pneumoniae, and P. mirabilis. The FDA recommends cefadroxil susceptibility can be deduced from cefazolin. Escherichia coli GENTAMICIN <=1: S Escherichia coli CEFTRIAXONE <=0.25: S Escherichia coli CEFTAZIDIME <=0.5: S Escherichia coli LEVOFLOXACIN 0.5: S Escherichia coli CIPROFLOXACIN 0.5: I Escherichia coli PIPERACILLIN/TAZO <=4: S Escherichia coli AMPICILLIN/SULBACTAM >=32: R Escherichia coli CEFEPIME <=0.12: S Escherichia coli MEROPENEM <=0.25: S Escherichia coli NITROFURANTOIN <=16: S us Lety Ingram MD MICROBIOLOGY Final R esult [facility] [address] [place] [address], [place] * CT ABDOMEN PELVIS UROGRAM WWO (04/03/2025 2:42 PM CDT) Anatomical Region Laterality Modality Abdomen, Pelvis, KIDNEYS, BLADDER Computed Tomography 04/07/2025 9:19 AM CDT Impressions 04/07/2025 9:19 AM CDT 1. No evidence of urolithiasis or hydroureteronephrosis. 2. 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 3. Streak artifact from total hip replacements limits evaluation of the bladder, which appears unremarkable as visualized. Please note that all CT scans at this facility use dose modulation, iterative reconstruction, and/or weight-based dosing when appropriate to reduce radiation dose to as low as reasonably achievable. Dictated by Maico Melton MD @ 04/07/2025 9:19:55 AM (Electronically Signed) Narrative 04/07/2025 9:19 AM CDT For Patients: As a result of the Cures Act, medical imaging exams and procedure reports are released immediately into your electronic medical record. You may view this report before your referring provider. If you have questions, please contact your health care provider. INDICATION: Microhematuria. TECHNIQUE: Abdomen and pelvis CT was performed with and without the administration of intravenous contrast utilizing urogram protocol. IV contrast: 100 mL Omnipaque 350. COMPARISON: : Abdomen and pelvis CT 01/16/2023. FINDINGS: Lower thorax: Small right Bochdalek hernia. Liver: Unremarkable. Gallbladder/Biliary Tree: The gallbladder is surgically absent. Pancreas: Unremarkable. Spleen: Unremarkable. Adrenal glands: Unremarkable. Kidneys/Ureters: No evidence of urolithiasis or hydroureteronephrosis. A 0.5 cm fat density lesion in the lower pole of the right kidney, likely an angiomyolipoma. No evidence of filling defects within the renal calices, pelvis, or ureters bilaterally. Urinary bladder: Streak artifact from total hip arthroplasties bilaterally limits evaluation of the bladder. No gross evidence of bladder calculi or mass. Reproductive organs: The uterus is surgically absent. Bowel/mesentery/peritoneum: No abnormally thickened or dilated loops of bowel. No evidence of pneumatosis, pneumoperitoneum, or free fluid. Multiple sigmoid diverticula without evidence of diverticulitis. Abdominal vasculature: Unremarkable. Lymph nodes: Unremarkable. Osseous structures and soft tissues: No acute or aggressive osseous lesions. Total hip arthroplasties bilaterally with no gross evidence of complication.. Procedure Note Maico Melton MD - 04/07/2025 For Patients: As a result of the Cures Act, medical imagingexams and procedure reports are released immediately into your electronicmedical record. You may view this report before your referring provider.If you have questions, please contact your health care provider. INDICATION: Microhematuria. TECHNIQUE: Abdomen and pelvis CT was performed with and without the administration ofintravenous contrast utilizing urogram protocol. IV contrast: 100 mL Omnipaque 350. COMPARISON: : Abdomen and pelvis CT 01/16/2023. FINDINGS: Lower thorax: Small right Bochdalek hernia. Liver: Unremarkable. Gallbladder/Biliary Tree: The gallbladder is surgically absent. Pancreas: Unremarkable. Spleen: Unremarkable. Adrenal glands: Unremarkable. Kidneys/Ureters: No evidence of urolithiasis or hydroureteronephrosis. A0.5 cm fat density lesion in the lower pole of the right kidney, likely anangiomyolipoma. No evidence of filling defects within the renal calices,pelvis, or ureters bilaterally. Urinary bladder: Streak artifact from total hip arthroplasties bilaterallylimits evaluation of the bladder. No gross evidence of bladder calculi ormass. Reproductive organs: The uterus is surgically absent. Bowel/mesentery/peritoneum: No abnormally thickened or dilated loops ofbowel. No evidence of pneumatosis, pneumoperitoneum, or free fluid.Multiple sigmoid diverticula without evidence of diverticulitis. Abdominal vasculature: Unremarkable. Lymph nodes: Unremarkable. Osseous structures and soft tissues: No acute or aggressive osseouslesions. Total hip arthroplasties bilaterally with no gross evidence ofcomplication.. IMPRESSION: 1. No evidence of urolithiasis or hydroureteronephrosis. 2. 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 3. Streak artifact from total hip replacements limits evaluation of thebladder, which appears unremarkable as visualized. Please note that all CT scans at this facility use dose modulation,iterative reconstruction, and/or weight-based dosing when appropriate toreduce radiation dose to as low as reasonably achievable. Dictated by Maico Melton MD @ 04/07/2025 9:19:55 AM (Electronically Signed) us Stella JACKMAN CT Final Res ult * POCT Creatinine (04/03/2025 2:12 PM CDT) POCT,CREATININ E, ISTAT 1.1 0.6 - 1.3 mg/dL 04/03/2025 2:23 PM CDT [facility] Blood BLOOD SPECIMEN / Unknown [facility] / Unknown 04/03/2025 2:12 PM CDT 04/03/2025 2:12 PM CDT Lety Ingram MD CHEMISTRY Final R esult [facility] [address] [place] [address], [facility] [address] [place] [address], * (ABNORMAL) UA W/ SEDIMENT EXAM REFLEXED PER CRITERIA (04/03/2025 1:46 PM CDT) COLOR Yellow Yellow Color 04/04/2025 1:05 AM CDT [facility] CLARITY Clear Clear Clarity 04/04/2025 1:05 AM CDT [facility]- [facility] SPECIFIC GRAVITY,URINE 1.010 1.010, 1.015, 1.020, 1.025 04/04/2025 1:05 AM CDT [facility] PH,URINE 7.5 6.0, 7.0, 8.0, 5.5, 6.5, 7.5, 8.5 04/04/2025 1:05 AM CDT [facility] UROBILINOGEN, QUALITATIVE Normal Normal EU/dl 04/04/2025 1:05 AM CDT [facility] PROTEIN, URINE Negative Negative mg/dL 04/04/2025 1:05 AM CDT [facility]- [facility] GLUCOSE, URINE Negative Negative mg/dL 04/04/2025 1:05 AM CDT [facility] KETONES,URINE Negative Negative mg/dL 04/04/2025 1:05 AM CDT [facility] BILIRUBIN,URI NE Negative Negative 04/04/2025 1:[address] [facility] OCCULT BLOOD,URINE Negative Negative 04/04/2025 1:[address] [facility] NITRITE Negative Negative 04/04/2025 1:05 AM CDT [facility] LEUKOCYTE ESTERASE Moderate(A) Negative 04/04/2025 1:05 AM CDT [facility] Urine URINE SPECIMEN / Unknown Non-Blood / Unknown 04/03/2025 1:46 PM CDT 04/03/2025 1:46 PM CDT us Stella JACKMAN URINE Final Res ult [facility] [address] [place] [address], [place] * SCAN-MRI INTERPRETATION (03/24/2025 12:00 AM CDT) Anatomical Region Laterality Modality Other us Scanner OTHER Final Result * PA SPIROMETRY W VITAL CAPACITY [[id number]] (02/20/2025 12:00 AM CDT) us Jan JACKMAN PB - RESPIRATORY SYSTE M SERVICES Final Result * SCAN-CT INTERPRETATION (01/17/2025 12:00 AM CDT) Anatomical Region Laterality Modality [...] recommended in 3-5 years. Dawn Cazares PA-C [facility] 01/23/2024 Narrative 01/23/2024 2:01 PM CDT For Patients: Results are automatically released to your [facility] ([employer]) account once available, in compliance with federal regulations. This means that you may see your results before your provider has had a chance to review them. Please allow 2-3 business days for your provider to comment on the results. XR DXA Bone Mineral Density (BMD) EXAM LOCATION: [facility] [address] [facility] [address] PATIENT NAME: Lisbet Sinha DATE OF : 1945 EXAM DATE: 01/17/2024 REQUESTING PROVIDER: Lety Ingram MD GENDER AT : female HEIGHT: [...] two scanners are made by the same offset press assistant. PROCEDURE: Dual-energy x-ray absorptiometry performed with routine [...] Osteoporosis: T-score at or below -2.5 SD Lety Ingram MD DEXA Final R esult * ANTI HCV (02/10/2020 11:22 AM CDT) HEPATITIS C ANTIBODY Non-React ana luisa Non-React ana luisa 02/10/2020 7:17 PM CDT [facility] Comment:Antibodies to HCV no t detected; does not exclude the possibility of exposure to HCV. Blood BLOOD SPECIMEN / Unknown Butterfly / Unknown 02/10/2020 11:22 AM CDT 02/10/2020 11:22 AM CDT Lety Ingram MD SEND OUTS Final R esult [facility] [address] [place] [address], from Last 3 Months or Most Recently Relevant to Health Maintenance Insurance MEDICARE PART B HB ONLY [employer] [place] [address] [employer] [place] [phone] MEDICARE PART A HB ONLY Advance Directives Documents on File Type Date Recorded Patient Therapeutic Activities Services Worker Expl anation Healthcare Directive 01/15/2019 11:26 AM HE ALTH CARE DIRECTIVE, [facility] Care Teams [employer] Sewer Relationship Specialty Start Date End Date Lety Ingram MD [address] [place] [address] PCP - General Family Practice 04/03/25 Stella Rolle PA [address] [place] [id number] Physician Animal Laboratory Technician 08/21/24
[2025-04-09] MEDS: AZITHROMYCIN 500 MG in 0.9 % SODIUM CHLORIDE 250 ml 250 ML 255 MG IVPB (09:19)
[2025-04-09] MEDS: VANCOMYCIN 1.75 GM/350 ML 1.75 GM/350 ML PIGGYBACK IVPB (11:30)
[2025-04-09] MEDS: POTASSIUM CHLORIDE 10 MEQ CAPSULE ER 40 MEQ PO (11:50)
[2025-04-09] MEDS: ALBUTEROL INHALER 2 PUFF IH ×2 (12:05→20:16)
--- NOTE | 2025-04-09 14:10 | PM.IMHP1 ---
Assessment and Plan Assessment and plan (1) Acute pyelonephritis: Problem comment: -Started Zosyn 4.5 g Q6h -IVF -F/up Ur & Bl Cx -CT abd; Mild left perinephric stranding -Failed PO Abx w/ Keflex Status: Acute (2) Hypertension: Problem comment: Resume blood pressure medications as tolerated Status: Acute (3) Asthma: Problem comment: Currently doing well. Continue home inhaler use. Status: Acute (4) Lung nodule seen on imaging study: Problem comment: As CT above Status: Acute Total Time Spent Total Time Spent: Time spent: Today I spent 75 minutes seeing the patient, discussing the patient with ER staff, reviewing Expanse and EPIC notes/diagnostics, discussing the care plan with our care time that includes social work, PT/OT, pharmacy, RT, jail and documenting my impressions and plan in the medical record. Hospitalist- H&P: HPI History of Present Illness Date Seen: 04/09/25 Chief complaint: Fever Narrative: Lisbet Sinha is a 80 year old female w/PMHx of UTIs who presents w/ fevers and chills for ~ 10-14 days in addition to increased urinary frequency.. Pt was started on Keflex and failed as symptoms continued. Pt was found to have Lt flank tenderness on examination. At the ED , pt was hemodynamically stable. CT Abd showed Mild left perinephric stranding. No lactated elevation but very high CRP at 14. Bl and Ur Cx sent. IVF given. Review of Systems Status of ROS: Reports: 6 or more systems reviewed and unremarkable except as noted in History and below Medical Decision Making Medical Decision Making Has patient completed a Health Care Directive: Yes [facility] Medical History Anemia ?D64.9 - Anemia, unspecified (ICD-10) Anemia ?D64.9 - Anemia, unspecified (ICD-10) Constipation ?K59.00 - Constipation, unspecified (ICD-10) Asthma ?J45.909 - Unspecified asthma, uncomplicated (ICD-10) Paroxysmal tachycardia ?I47.9 - Paroxysmal tachycardia, unspecified (ICD-10) Unspecified hemorrhoids without mention of complication ?K64.9 - Unspecified hemorrhoids (ICD-10) Shingles ?B02.9 - Zoster without complications (ICD-10) Stress incontinence in female ?N39.3 - Stress incontinence (female) (male) (ICD-10) Insomnia ?G47.00 - Insomnia, unspecified (ICD-10) Primary osteoarthritis of right knee ?M17.11 - Unilateral primary osteoarthritis, right knee (ICD-10) History of colon polyps ?Z86.0100 - Personal history of colon polyps, unspecified (ICD-10) Gastroesophageal reflux disease with esophagitis ?K21.00 - Gastro-esophageal reflux disease with esophagitis, without bleeding (ICD-10) Other and unspecified hyperlipidemia ?E78.5 - Hyperlipidemia, unspecified (ICD-10) 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 ?D04.5 - Carcinoma in situ of skin of trunk (ICD-10) Basal cell carcinoma (BCC) of skin of left lower extremity including hip ?C44.719 - Basal cell carcinoma of skin of left lower limb, including hip (ICD-10) 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 - Localized scleroderma [morphea] (ICD-10) Paroxysmal SVT (supraventricular tachycardia) ?I47.10 - Supraventricular tachycardia, unspecified (ICD-10) Hypertension ?I10 - Essential (primary) hypertension (ICD-10) Surgical History Status post right knee replacement (12/23/24) ?Z96.651 - Presence of right artificial knee joint (ICD-10) History of phacoemulsification of cataract of both eyes with intraocular lens implantation ?Z98.41 - Cataract extraction status, right eye (ICD-10) ?Z98.42 - Cataract extraction status, left eye (ICD-10) ?Z96.1 - Presence of intraocular lens (ICD-10) History of total knee arthroplasty ?Z96.659 - Presence of unspecified artificial knee joint (ICD-10) History of hysterectomy ?Z90.710 - Acquired absence of both cervix and uterus (ICD-10) S/P left knee arthroscopy (07/20/00) ?Z98.890 - Other specified postprocedural states (ICD-10) History of cholecystectomy ?Z90.49 - Acquired absence of other specified parts of digestive tract (ICD-10) H/O hemorrhoidectomy ?Z98.890 - Other specified postprocedural states (ICD-10) History of total left hip arthroplasty (2011) ?Z96.642 - Presence of left artificial hip joint (ICD-10) History of total right hip arthroplasty ?Z96.641 - Presence of right artificial hip joint (ICD-10) H/O colonoscopy ?Z98.890 - Other specified postprocedural states (ICD-10) H/O endoscopy ?Z98.890 - Other specified postprocedural states (ICD-10) H/O esophagogastroduodenoscopy ?Z98.890 - Other specified postprocedural states (ICD-10) Family History Mother Breast cancer Diabetes High blood pressure Aunt Breast cancer Grandmother Breast cancer Brother Diabetes Father High blood pressure Social History Narrative: She lives alone in [place]. She can live on 1 level in her home. Her 2 daughters will be assisting her of during her 1st week and her sister will come to a sister in her 2nd week postop. She does not smoke or drink alcohol What is your current living situation?: I presently have a place to live Problems where you live: no known problems In the past 12 months, utilities in danger of being shut off: no In past 12 months, lack of transportation kept you from medical appts, meetings, work, or getting things needed for daily living: no In the past 12 mos, have been you worried that your food would run out before you had money to buy more?: never true In the past 12 mos, the food you bought just didn't last and you didn't have money to buy more?: never true Smoking Status: Never smoker Do you use any of these nicotine containing products: None Second hand tobacco smoke exposure: No How often do you have a drink containing alcohol: never How often do you have six or more drinks on one occasion: Never AUDIT-C Alcohol total score: 0 Non-prescribed substance use: denies use Caffeine: No How often does anyone, including family, friends and others, physically hurt you: never How often does anyone, including family, friends and others, insult or talk down to you: never How often does anyone, including family, friends and others, threaten you with harm: never How often does anyone, including family, friends and others, scream or curse at you: never service: No Meds Home Medications and Allergies Home Medications ?Medication ?Instructions ?Recorded ?Confirmed ?Type atorvastatin 40 mg tablet 40 mg PO HS 09/11/23 04/09/25 History hydrochlorothiazide 25 mg tablet 25 mg PO DAILY 09/11/23 04/09/25 History budesonide-formoterol HFA 80 2 puff inhalation BID 11/14/23 04/09/25 History mcg-4.5 mcg/actuation aerosol inhaler fluticasone propionate 50 1 spray intranasal DAILY 11/14/23 04/09/25 History mcg/actuation nasal spray,suspension betamethasone, augmented 0.05 % 1 applic topical DAILY PRN 10/18/24 04/09/25 History topical cream estradiol 0.01% (0.1 mg/gram) 1 g vaginal 2XW 10/18/24 04/09/25 History vaginal cream famotidine 20 mg tablet (Pepcid AC) 20 mg PO DAILY 10/18/24 04/09/25 History omeprazole 40 mg capsule,delayed 40 mg PO DAILY 10/18/24 04/09/25 History release trazodone 50 mg tablet 50 mg PO HS 11/25/24 04/09/25 History albuterol sulfate 90 mcg/actuation 2 inh inhalation Q4H PRN 12/20/24 04/09/25 History aerosol inhaler olopatadine 0.2 % eye drops 1 drp ophthalmic (eye) DAILY 12/23/24 04/09/25 History (Pataday Once Daily Relief) losartan 50 mg tablet 50 mg PO DAILY 03/14/25 04/09/25 History apple cider vinegar 300 mg tablet 300 mg PO DAILY 04/01/25 04/09/25 History acetaminophen 500 mg tablet 500 - 1,000 mg PO Q6H PRN 04/09/25 04/09/25 History cephalexin 500 mg capsule 500 mg PO 3XD 04/09/25 04/09/25 History cranberry extract 500 ow-b-bxhsrax 1 tab PO DAILY 04/09/25 04/09/25 History 50 mg chewable tablet (Actifruit Cranberry) psyllium husk 3.4 gram/5.4 gram 1 tbsp PO HS 04/09/25 04/09/25 History oral powder (Metamucil) Allergies Allergy/AdvReac Type Severity Reaction Status Date / Time No Known Drug Allergies Allergy Verified 04/09/25 07:27 Exam Narrative: Exam Narrative: Physical exam GENERAL: Comfortable, no acute distress. HEAD AND NECK: Atraumatic, normocephalic CARDIOVASCULAR: RRR. Normal S1, S2. No murmurs. RESPIRATORY: Clear to auscultation B/L. Good air entry B/L. No wheezes or rhonchi. GASTROINTESTINAL: Not distended, not tender to palpation. NEUROLOGY: Alert, awake, oriented X 3. Normal speech. UGT; +ve tenderness Lt CV angle PSYCH: Normal mood, normal affect. Const: Vital Signs, click to edit/add: Vital Signs - 24 hr 04/09/25 07:15 04/09/25 07:29 04/09/25 07:30 Temperature 99.2 F Pulse Rate 85 85 Pulse Rate [Pulse Oximeter] 99 Respiratory Rate 20 19 Blood Pressure Blood Pressure [Le ft Arm] Blood Pressure [Ri ght Upper Arm] 114/69 Pulse Oximetry 94 90 92 Oxygen Delivery Me thod Room Air 04/09/25 07:31 04/09/25 07:45 04/09/25 07:46 Temperature Pulse Rate 87 87 88 Pulse Rate [Pulse Oximeter] Respiratory Rate 17 Blood Pressure 131/73 143/78 H Blood Pressure [Le ft Arm] Blood Pressure [Ri ght Upper Arm] Pulse Oximetry 91 93 93 Oxygen Delivery Me thod 04/09/25 08:00 04/09/25 08:01 04/09/25 08:21 Temperature Pulse Rate 82 83 89 Pulse Rate [Pulse Oximeter] Respiratory Rate 21 20 26 H Blood Pressure 135/77 Blood Pressure [Le ft Arm] Blood Pressure [Ri ght Upper Arm] Pulse Oximetry 93 92 94 Oxygen Delivery Me thod 04/09/25 08:35 04/09/25 08:36 04/09/25 08:45 Temperature Pulse Rate 80 78 76 Pulse Rate [Pulse Oximeter] Respiratory Rate 26 H 17 Blood Pressure 122/80 Blood Pressure [Le ft Arm] Blood Pressure [Ri ght Upper Arm] Pulse Oximetry 96 96 95 Oxygen Delivery Me thod 04/09/25 08:46 04/09/25 08:47 04/09/25 09:00 Temperature Pulse Rate 76 76 74 Pulse Rate [Pulse Oximeter] Respiratory Rate 20 20 20 Blood Pressure 125/67 Blood Pressure [Le ft Arm] Blood Pressure [Ri ght Upper Arm] Pulse Oximetry 94 94 94 Oxygen Delivery Me thod 04/09/25 09:01 04/09/25 09:15 04/09/25 09:17 Temperature Pulse Rate 73 77 75 Pulse Rate [Pulse Oximeter] Respiratory Rate 19 20 Blood Pressure 129/64 128/70 Blood Pressure [Le ft Arm] Blood Pressure [Ri ght Upper Arm] Pulse Oximetry 94 93 92 Oxygen Delivery Me thod 04/09/25 09:18 04/09/25 09:30 04/09/25 09:45 Temperature Pulse Rate 75 Pulse Rate [Pulse Oximeter] Respiratory Rate 13 23 Blood Pressure Blood Pressure [Le ft Arm] Blood Pressure [Ri ght Upper Arm] Pulse Oximetry 94 Oxygen Delivery Me thod 04/09/25 10:00 04/09/25 10:03 04/09/25 13:52 Temperature 98.4 F Pulse Rate 78 79 Pulse Rate [Pulse Oximeter] 82 Respiratory Rate 18 Blood Pressure 133/74 Blood Pressure [Le ft Arm] 137/72 Blood Pressure [Ri ght Upper Arm] Pulse Oximetry 97 96 96 Oxygen Delivery Me thod Room Air Hospitalist - H&P: Result Labs Labs: Short CBC 04/09/25 Range/Units 07:50 WBC 6.75 (4.50-11.00) K/uL Hgb 10.8 L (12.0-16.0) gm/dL Hct 33.4 (33.0-51.0) % Plt Count 238 (140-440) K/uL BMP 04/09/25 07:50 Sodium 131 L Potassium 3.2 L Chloride 97 Carbon Dioxide 26 BUN 20 Creatinine 1.0 Glucose 124 H Calcium 9.1 Urine 04/09/25 Range/Units 08:10 Urine Color Yellow (Yellow) Urine Appearance Clear (Clear) Urine pH 6.5 (5.0-8.5) Ur Specific [place] 1.015 (1.000-1.030) Urine Protein Trace A (Negative) Urine Glucose (UA) Negative (Negative) Imaging CT Chest/Ab/Pelvis: Radiologist's impression: INDICATION: Sepsis TECHNIQUE: CT chest, abdomen and pelvis acquired without contrast. COMPARISON: Chest CT 10/10/2023, CT urogram 04/03/2025 FINDINGS: CHEST: Cardiovascular structures: Heart size is normal. Thoracic aorta and main pulmonary artery are normal in caliber. Moderate coronary artery calcifications. Small amount of atherosclerotic plaque throughout the aorta. Mediastinum and mary: No mass or adenopathy. Lungs and pleura: Similar right lower lobe solid nodule measuring 5 mm (3/38), previously 4 mm in 2023. Decreased right middle lobe solid nodule measuring 4 mm (3/61), previously 5 mm in 202, although this now has a more endobronchial appearance. Similar solid nodule versus mucous plugging in the right lower lobe (3/34). Stable subcentimeter left upper lobe calcified granulomas. Chest wall and axilla: No mass or adenopathy. Bones: No suspicious bone lesions. Bilateral glenohumeral joint degenerative change ABDOMEN AND PELVIS: Liver: Unremarkable. Gallbladder and bile ducts: Prior cholecystectomy. Pancreas: Unremarkable. Spleen: Unremarkable. Adrenal glands: Unremarkable. Kidneys: Mild left perinephric stranding. 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 Vascular structures: Abdominal aorta is normal in caliber. Lymph nodes: Possibly new borderline enlarged left para-aortic lymph node measuring 9 mm (2/122). Miscellaneous: Small amount of stranding in the pelvis, particularly adjacent to the sigmoid colon (6/2 and 4). No free air or significant free fluid. Pelvic Organs: Prior hysterectomy. Bones: Bilateral hip arthroplasty no suspicious bone lesions. Unremarkable for age. IMPRESSION: 1. Streak artifact from bilateral hip arthroplasties limits evaluation, however there is mild stranding in the pelvis adjacent to the sigmoid colon, which may represent an acute colitis or diverticulitis. No definite evidence of fluid collection or perforation. 2. Mild left perinephric stranding is nonspecific, please correlate with urinalysis to exclude possibility of pyelonephritis. 3. Possibly new borderline enlarged left retroperitoneal lymph node, nonspecific. Please note that all CT scans at this facility use dose modulation, iterative reconstruction, and/or weight-based dosing when appropriate to reduce radiation dose to as low as reasonably achievable. Dictated by Lilian Samaniego MD @ 04/09/2025 9:11:38 AM
[2025-04-09] MEDS: BUDESONIDE 0.5 MG/2ML NEB NEB ×2 (14:38→21:10)
[2025-04-09] MEDS: IPRAT-ALBUT 0.5-2.5 MG/3 ML NEB 1 NEB IH ×2 (14:39→19:45)
[2025-04-09] MEDS: FAMOTIDINE 20 MG TABLET PO (17:14)
[2025-04-09] MEDS: OMEPRAZOLE 20 MG CAPSULE DR 40 MG PO (17:14)
--- NOTE | 2025-04-09 19:03 | PC.NURSE ---
End of Shift: Patient pleasant and cooperative, A&O. VSS, afebrile. SpO2 maintained above 90% on RA. Denies pain this shift. Independent in room. Tolerating regular diet. ?
[2025-04-09] MEDS: PSYLLIUM HUSK (WITH SUGAR) 12 GM PACKET PO (21:10)
[2025-04-09] MEDS: ATORVASTATIN CALCIUM 40 MG TABLET PO (21:10)
[2025-04-09] MEDS: ENOXAPARIN 40 MG/0.4 ML INJ SUBCUT (21:11)
[2025-04-09] MEDS: BUDESONIDE FORMOTEROL 2 EACH IH (21:25)
[2025-04-10] MEDS: IPRAT-ALBUT 0.5-2.5 MG/3 ML NEB 1 NEB IH ×4 (00:44→19:30)
[2025-04-10] MEDS: TRAZODONE HCL 50 MG TABLET PO ×2 (00:44→21:03)
[2025-04-10 03:00] VITALS: BP 138/73; PULSE 72; RESP 20; TEMP 36.5; O2SAT 97
[2025-04-10] MEDS: PIPERACILLIN/TAZOBACTAM 4.5 GM in 0.9 % SODIUM CHLORIDE Mini-bag 100 ML IVPB ×3 (03:39→14:50)
--- NOTE | 2025-04-10 06:54 | PC.NURSE ---
End of Shift Note 259? ? Patient was pleasant and cooperative throughout the shift. Saline locked. VSS, Afebrile. A&Ox4. Moves independently. Uses call light appropriately. Call light within reach.?O2?maintained?above 90% on RA. Regular diet.? ?
[2025-04-10 07:05] LABS: Hematocrit* 30.2 % (33.0-51.0); Hemoglobin* 9.4 gm/dL (12.0-16.0); Mean Corpuscular HGB Conc 31 gm/dL (32-36); Mean Corpuscular Hemoglobin 25 pg (26-34); Mean Corpuscular Volume 79 fL (80-100); Red Blood Count* 3.81 m/uL (4.00-5.20); White Blood Count* 7.35 K/uL (4.50-11.00)
[2025-04-10 07:06] LABS: Slide Review Reflex No
[2025-04-10 07:16] LABS: Chloride* 104 mmol/L (96-114)
[2025-04-10 07:17] LABS: Albumin* 3.4 g/dL (3.3-5.0); Potassium* 3.2 mmol/L (3.6-5.1); Sodium* 136 mmol/L (135-149)
[2025-04-10 07:19] LABS: Anion Gap 9 mEq/L (7-15); Blood Urea Nitrogen* 18 mg/dL (7-30); Carbon Dioxide* 23 mmol/L (20-32); Creatinine* 0.9 mg/dL (0.5-1.5); Est. Creatinine Clearance* 45.09; Estimated Glomerular Filt Rate 65 ml/min
[2025-04-10 07:20] LABS: Alanine Aminotransferase* 19 U/L (4-35); Alkaline Phosphatase* 96 U/L (40-150); Aspartate Amino Transferase* 27 U/L (12-35); Bilirubin Total* 0.2 mg/dL (0.1-1.5); Calcium* 9.2 mg/dL (8.4-10.6); Glucose* 143 mg/dL (60-115); Total Protein* 6.3 g/dL (6.0-8.3)
[2025-04-10 07:30] VITALS: BP 115/61; PULSE 60; RESP 16; TEMP 36.4; O2SAT 97
--- NOTE | 2025-04-10 08:23 | PM.IMPN1 ---
Assessment and Plan Assessment and plan (1) Acute pyelonephritis: Problem comment: -Cont Zosyn 4.5 g Q6h -IVF -F/up Ur & Bl Cx -CT abd; Mild left perinephric stranding -Failed PO Abx w/ Keflex Status: Acute (2) Asthma: Problem comment: Duonebs + budesonide neb Status: Acute (3) Lung nodule seen on imaging study: Problem comment: As CT above D/w pt, needs F/up w/ her PCP as outpt Status: Acute (4) Hypertension: Problem comment: Resume blood pressure medications as tolerated Status: Acute Subjective Date Seen: 04/10/25 Interval history: No acute events overnight. Pt states she improved w/ IV Abx. She denies abdominal pain, N/V. Exam Narrative: Exam Narrative: GENERAL: Comfortable, no acute distress. HEAD AND NECK: Atraumatic, normocephalic CARDIOVASCULAR: RRR. Normal S1, S2. No murmurs. RESPIRATORY: Clear to auscultation B/L. Good air entry B/L. No wheezes or rhonchi. GASTROINTESTINAL: Not tender to palpation. NEUROLOGY: Alert, awake, oriented X 3. Normal speech. PSYCH: Normal mood, normal affect. Const: Vital Signs, click to edit/add: Vital Signs - 24 hr 04/09/25 08:35 04/09/25 08:36 04/09/25 08:45 Temperature Pulse Rate 80 78 76 Pulse Rate [Pulse Oximeter] Respiratory Rate 26 H 17 Blood Pressure 122/80 Blood Pressure [Le ft Arm] Blood Pressure [Ri ght Arm] Pulse Oximetry 96 96 95 [facility] 04[facility] 08:46 04/09/25 08:47 04/09/25 09:00 Temperature Pulse Rate 76 76 74 Pulse Rate [Pulse Oximeter] Respiratory Rate 20 20 20 Blood Pressure 125/67 Blood Pressure [Le ft Arm] Blood Pressure [Ri ght Arm] Pulse Oximetry 94 94 94 [facility] 04/09/25 09:01 04/09/25 09:15 04/09/25 09:17 Temperature Pulse Rate 73 77 75 Pulse Rate [Pulse Oximeter] Respiratory Rate 19 20 Blood Pressure 129/64 128/70 Blood Pressure [Le ft Arm] Blood Pressure [Ri ght Arm] Pulse Oximetry 94 93 92 [facility] 04/09/25 09:18 04/09/25 09:30 04/09/25 09:45 Temperature Pulse Rate 75 Pulse Rate [Pulse Oximeter] Respiratory Rate 13 23 Blood Pressure Blood Pressure [Le ft Arm] Blood Pressure [Ri ght Arm] Pulse Oximetry 94 Oxygen Delivery Me thod 04/09/25 10:00 04/09/25 10:03 04/09/25 11:00 Temperature 98.4 F Pulse Rate 78 79 Pulse Rate [Pulse Oximeter] 82 Respiratory Rate 18 Blood Pressure 133/74 Blood Pressure [Le ft Arm] 137/72 Blood Pressure [Ri ght Arm] Pulse Oximetry 97 96 96 Oxygen Delivery Me thod Room Air 04/09/25 13:52 04/09/25 13:52 04/09/25 15:00 Temperature 98.4 F 97.6 F Pulse Rate Pulse Rate [Pulse Oximeter] 82 76 Respiratory Rate 18 18 18 Blood Pressure Blood Pressure [Le ft Arm] 137/72 137/69 Blood Pressure [Ri ght Arm] Pulse Oximetry 96 96 93 Oxygen Delivery Me thod Room Air Room Air Room Air 04/09/25 15:00 04/09/25 19:35 04/09/25 23:00 Temperature 97.6 F 98.3 F Pulse Rate Pulse Rate [Pulse Oximeter] 76 82 83 Respiratory Rate 18 18 18 Blood Pressure Blood Pressure [Le ft Arm] 157/81 H 124/63 Blood Pressure [Ri ght Arm] Pulse Oximetry 97 93 Oxygen Delivery Me thod Room Air Room Air 04/10/25 03:00 04/10/25 07:30 04/10/25 07:30 Temperature 97.7 F 97.6 F Pulse Rate Pulse Rate [Pulse Oximeter] 72 60 60 Respiratory Rate 20 16 16 Blood Pressure Blood Pressure [Le ft Arm] Blood Pressure [Ri ght Arm] 138/73 115/61 Pulse Oximetry 97 97 Oxygen Delivery Me thod Room Air Room Air Labs Labs: Laboratory Results - last 24 hr 04/09/25 04/09/25 04/10/25 07:50 08:10 06:10 WBC 7.35 RBC 3.81 L Hgb 9.4 L Hct 30.2 L MCV 79 L MCH 25 L MCHC 31 L Plt Count 255 Sodium 131 L 136 Potassium 3.2 L 3.2 L Chloride 97 104 Carbon Dioxide 26 23 Anion Gap 8 9 BUN 20 18 Creatinine 1.0 0.9 Estimated Creat Clear 45.09 45.09 Estimated GFR 58 65 Glucose 124 H 143 H Calcium 9.1 9.2 Magnesium 2.3 Total Bilirubin 0.2 AST 27 ALT 19 Alkaline Phosphatase 96 C-Reactive Protein 14.1 H Total Protein 6.3 Albumin 3.4 Urine Color Yellow Urine Appearance Clear Urine pH 6.5 Ur Specific [place] 1.015 Urine Protein Trace A Urine Glucose (UA) Negative Urine Ketones Negative Urine Blood Negative Urine Nitrite Negative Urine Bilirubin Negative Urine Urobilinogen 0.2 Ur Leukocyte Esterase Negative Urine RBC 0-2 Urine WBC 2-5 Ur Squamous Epith Cells Moderate A Urine Bacteria Few A
[2025-04-10] MEDS: BUDESONIDE 0.5 MG/2ML NEB NEB ×2 (09:24→20:59)
[2025-04-10] MEDS: POTASSIUM CHLORIDE 10 MEQ CAPSULE ER 60 MEQ PO (09:24)
[2025-04-10] MEDS: LOSARTAN POTASSIUM 50 MG TABLET PO (09:25)
[2025-04-10] MEDS: BUDESONIDE FORMOTEROL 2 EACH IH ×2 (10:13→21:04)
[2025-04-10] MEDS: SODIUM CHLORIDE 0.9 % (FLUSH) 10 ML SYRINGE 5 ML IVF ×2 (10:13→19:25)
[2025-04-10 11:30] VITALS: BP 135/71; PULSE 82; RESP 18; TEMP 36.4; O2SAT 99
[2025-04-10] MEDS: ALBUTEROL INHALER 2 PUFF IH ×2 (12:38→16:35)
[2025-04-10 15:00] VITALS: BP 134/67; PULSE 89; RESP 18; TEMP 36.4; O2SAT 97
--- NOTE | 2025-04-10 15:13 | PC.NURSE ---
End of Shift: Patient pleasant and cooperative, A&O. VSS, afebrile. SpO2 maintained above 90% on RA. Denies pain this shift. Tolerating regular diet, denies nausea. Independent in room.
[2025-04-10] MEDS: LACTOBACILLUS ACIDOPHILUS 1 TABLET 2 TAB PO (17:26)
[2025-04-10] MEDS: OMEPRAZOLE 20 MG CAPSULE DR 40 MG PO (17:27)
[2025-04-10] MEDS: FAMOTIDINE 20 MG TABLET PO (17:27)
[2025-04-10 19:00] VITALS: BP 135/72; PULSE 74; RESP 18; TEMP 36.6; O2SAT 96
--- NOTE | 2025-04-10 19:20 | PC.NURSE ---
Nursing Care Hours: [id number] Pt this shift calm and cooperative, alert and oriented. No c/o pain, VSS. Independent in room. Pt had questions about UTI prevention, film writer spent time discussing strategies. Pt c/o itching at IV dressing site. No rash noted.
[2025-04-10] MEDS: cefTRIAXone 1 GM in 0.9 % SODIUM CHLORIDE Mini-bag 100 ML IVPB (19:24)
[2025-04-10] MEDS: ATORVASTATIN CALCIUM 40 MG TABLET PO (20:58)
[2025-04-10] MEDS: PSYLLIUM HUSK (WITH SUGAR) 12 GM PACKET PO (20:59)
[2025-04-10] MEDS: ENOXAPARIN 40 MG/0.4 ML INJ SUBCUT (20:59)
[2025-04-10 22:57] VITALS: BP 145/75; PULSE 78; RESP 18; TEMP 36.6; O2SAT 97
[2025-04-11 01:28] VITALS: BP 124/63; BP 142/69; PULSE 80; RESP 18; TEMP 36.6; O2SAT 95
[2025-04-11] MEDS: IPRAT-ALBUT 0.5-2.5 MG/3 ML NEB 1 NEB IH ×2 (01:30→08:33)
--- NOTE | 2025-04-11 06:04 | PC.NURSE ---
Shift note: Patient is pleasant, alert and oriented. No fever recorded. Patient is independent in room and hallway. Denied any pain. Patient had adequate sleep.
[2025-04-11] MEDS: ALBUTEROL INHALER 2 PUFF IH (06:26)
[2025-04-11 08:00] VITALS: BP 149/78; PULSE 82; RESP 18; TEMP 36.6; O2SAT 95
[2025-04-11] MEDS: BUDESONIDE 0.5 MG/2ML NEB NEB (08:34)
[2025-04-11] MEDS: LACTOBACILLUS ACIDOPHILUS 1 TABLET 2 TAB PO (08:34)
[2025-04-11] MEDS: LOSARTAN POTASSIUM 50 MG TABLET PO (08:34)
[2025-04-11] MEDS: BUDESONIDE FORMOTEROL 2 EACH IH (09:15)
[2025-04-11 10:41] LABS: C.Difficile Negative (Negative); CDIFFEPI 027 PRESUMPTIVE NEGATIVE (Negative)
--- NOTE | 2025-04-11 11:13 | P.DS_ITS ---
DS: Providers Provider Date Seen: 04/11/25 Date of admission: 04/09/25 10:16 Primary care physician: Lety Ingram MD Admitting Clinician: Doreen Toth MD Attending Physician on discharge: Doreen Toth MD DS: Diagnosis Discharge Diagnosis (1) Acute pyelonephritis: Status: Acute Problem details: -D/C Zosyn -IVF -F/up Ur & Bl Cx -CT abd; Mild left perinephric stranding -Failed PO Abx w/ Keflex 04/11: Outpatient clinic urinalysis showed that patient was growing E coli more than 100,000 CFU per mL, sample was taken on April 07 and resulted beginning of April. Antibiotic sensitivity was showing that it is sensitive to ceftriaxone, safe cefepime, ciprofloxacin and levofloxacin seen in addition to Zosyn. It was resistant to ampicillin and cefazolin. - will discharge patient on was cefdinir as per the urine culture antibiotic sensitivities for 5 more days. Patient was complaining of loose stool this morning, she was started on probiotics, C diff was tested this morning and it came back negative. Discussed with the patient the need to follow-up at an urgent care unit or with primary care physician if she continues to have lose stools. - patient denies any pain, no abdominal pain no nausea vomiting, no chills or rigors for the past 48 hours. (2) Asthma: Status: Acute Problem details: Duonebs + budesonide neb (3) Lung nodule seen on imaging study: Status: Acute Problem details: As CT above D/w pt, needs F/up w/ her PCP as outpt (4) Hypertension: Status: Acute Problem details: Resume blood pressure medications as tolerated DS: Summary Hospital Course Hospital Course: A 80 yo pt w/ PMHx of HTN and recurrent UTIs presents to the ED w/ chills and rigors in addition to urinary symptoms. pt failed PO Abx w/ Keflex. CT abd showed Mild left perinephric stranding suggesting pyelonephritis. Pt was treated w/ Zosyn and improved immensely. Outpatient clinic urinalysis showed that patient was growing E coli more than 100,000 CFU per mL, sample was taken on April 07 and resulted beginning of April. We discharged patient on was cefdinir as per the urine culture antibiotic sensitivities for 5 more days. Patient was complaining of loose stool this morning, she was started on probiotics, C diff was tested this morning and it came back negative. Discussed with the patient the need to follow-up at an urgent care unit or with primary care physician if she continues to have lose stools. Status at Discharge Functional status at discharge: independent ambulation Overall status at discharge: patient is progressing back to baseline Time Spent with Patient Time attestation: Total time spent providing and/or coordinating discharge services: Exam Narrative: Exam Narrative: Physical exam GENERAL: Comfortable, no acute distress. HEAD AND NECK: Atraumatic, normocephalic CARDIOVASCULAR: RRR. Normal S1, S2. No murmurs. RESPIRATORY: Clear to auscultation B/L. Good air entry B/L. No wheezes or rhonchi. GASTROINTESTINAL: Not distended, not tender to palpation. NEUROLOGY: Alert, awake, oriented X 3. Normal speech. PSYCH: Normal mood, normal affect. Const: Vital Signs, click to edit/add: Vital Signs - 24 hr 04/10/25 11:30 04/10/25 15:00 04/10/25 15:00 Temperature 97.6 F 97.5 F L Pulse Rate [Pulse Oximeter] 82 89 89 Respiratory Rate 18 18 18 Blood Pressure [Le ft Arm] Blood Pressure [Ri ght Arm] 135/71 134/67 Pulse Oximetry 99 97 Oxygen Delivery Me thod Room Air Room Air 04/10/25 19:00 04/10/25 22:57 04/10/25 22:57 Temperature 97.8 F 97.8 F Pulse Rate [Pulse Oximeter] 74 78 78 Respiratory Rate 18 18 18 Blood Pressure [Le ft Arm] Blood Pressure [Ri ght Arm] 135/72 145/75 H Pulse Oximetry 96 97 Oxygen Delivery Me thod Room Air Room Air 04/11/25 01:28 04/11/25 08:00 Temperature 98 F 97.9 F Pulse Rate [Pulse Oximeter] 80 82 Respiratory Rate 18 18 Blood Pressure [Le ft Arm] 124/63 Blood Pressure [Ri ght Arm] 142/69 H 149/78 H Pulse Oximetry 95 95 Oxygen Delivery Me thod Room Air Room Air DS: Data Data Completed and Pending Labs on day of discharge: Labs from last 24 hours 04/11/25 09:19 Stl C. diff Tox B Gene Negative Stl C. diff [id number] PRESUMPTIVE NEGATIVE Preliminary micro results at discharge 04/09/25 08:07 Blood Culture - Preliminary Blood NO GROWTH AFTER 48 HOURS 04/09/25 07:50 Blood Culture - Preliminary Blood NO GROWTH AFTER 48 HOURS Discharge Plan Discharge Disposition: Home, Self-Care Date of Admission: 04/09/25 10:16 Attending Provider on Discharge: Doreen Toth Primary Care Provider: Lety Ingram Condition: Improved Anticipated Discharge Date/Time: 04/11/25 11:19 Discharge Medications: New cefdinir 300 mg capsule 300 mg PO BID Qty: 10 0RF Acidophilus Tablet,Chewable 1 tab PO DAILY Qty: 20 0RF Continued budesonide-formoterol 80-4.5 mcg/actuation HFA aerosol inhaler 2 puff inhalation BID fluticasone propionate 50 mcg/actuation spray,suspension 1 spray intranasal DAILY omeprazole 40 mg capsule,delayed release(DR/EC) 40 mg PO DAILY betamethasone, augmented 0.05 % cream 1 applic topical DAILY PRN estradiol 0.01 % (0.1 mg/gram) cream 1 g vaginal 2XW famotidine [Pepcid AC] 20 mg tablet 20 mg PO DAILY losartan 50 mg tablet 50 mg PO DAILY apple cider vinegar 300 mg tablet 300 mg PO DAILY atorvastatin 40 mg tablet 40 mg PO HS hydrochlorothiazide 25 mg tablet 25 mg PO DAILY trazodone 50 mg tablet 50 mg PO HS albuterol sulfate 90 mcg/actuation HFA aerosol inhaler 2 inh inhalation Q4H PRN olopatadine [Pataday Once Daily Relief] 0.2 % drops 1 drp ophthalmic (eye) DAILY Metamucil 3.4 gram/5.4 gram powder 1 tbsp PO HS Rx Instructions: mix into at least 8 oz of water or juice before administering Actifruit Cranberry 500-50 mg tablet,chewable 1 tab PO DAILY acetaminophen 500 mg tablet 500 - 1,000 mg PO Q6H PRN Discontinued cephalexin 500 mg capsule 500 mg PO 3XD Discharge Orders: Discharge Order (Routine); Ordered 04/11/25 Ordered By: Doreen Toth Patient Education: Cefdinir (By mouth), Probiotic (By mouth), Urinary Tract Infection in Women (GEN) Additional Instructions: -You will need to complete oral antibiotic course, cefdinir as per the urine culture antibiotic sensitivities for 5 more days. -because you have been complaining of loose stool this morning, continue probiotics, C diff was tested this morning and it came back negative. You need to follow-up at an urgent care unit or with primary care physician if you continue to have lose stools. -using Zosyn as an IV antibiotic is the likely cause of diarrhea, C diff bacteria was negative in the stool. Activity Level: Activity as Tolerated Discharge Diet: Heart Healthy (2 gm sodium, low fat) Follow Up Appointments: Lety Ingram MD [Primary Care Provider, Family Practice] - 04/17/25 11:35 am Referral Note: [facility] follow-up Forms: Patient Belongings, [facility] Info Instructions
--- NOTE | 2025-04-11 14:31 | PC.NURSE ---
The patient was given education regarding UTI, proper wiping and the potential use of a lyubov bottle to assist with lyubov care cleanliness. Antibiotic education was also given. All discharge instructions were reviewed and all questions were answered as well. Ange GILL BSN
== END 2025-04-11 12:45 | disposition home or self-care (01) | DRG 690 ==
LOC: ED 09:24 → MEDSURG 10:16
PROVIDERS: Family Medicine; Admitting Provider Student in an Organized Health Care Education/Training Program; Emergency Provider Family Medicine; PCP Family Medicine; Visit Provider Student in an Organized Health Care Education/Training Program
DX: N10 Acute pyelonephritis (principal); B96.20 Unspecified Escherichia coli [E. coli] as the cause of diseases classified elsewhere; J45.909 Unspecified asthma, uncomplicated; N39.3 Stress incontinence (female) (male); R91.1 Solitary pulmonary nodule; I10 Essential (primary) hypertension; Z87.440 Personal history of urinary (tract) infections; Z96.641 Presence of right artificial hip joint; Z96.642 Presence of left artificial hip joint; Z96.651 Presence of right artificial knee joint
CPT/HCPCS: 36415; 71250; 74176; 80048; 80053; 81001; 83605; 83735; 85025; 85027; 86140; 87040; 87086; 87493; 87636; 94640; 99285; A9270; J0456; J0696; J1650; J2543; J2919; J3375; J7030; J7050

== ENCOUNTER 2025-06-09 07:06 | Day surgery (SDC) | payer MEDICARE, BC, SELFPAY ==
[2025-06-09] VITALS (20 sets, daily range): BP systolic 127–174; BP diastolic 71–93; PULSE 59–85; RESP 16–20; TEMP 36–36.9; O2SAT 88–100; BMI 34.4
--- NOTE | 2025-06-09 07:39 | W.PM.H&PU ---
History & Physical Update History & Physical Update H&P Reviewed and patient assessed: No changes noted
[2025-06-09] MEDS: LACTATED RINGERS 1000 ML 1,000 ML 100 ML IV ×2 (08:15→11:50)
[2025-06-09] MEDS: SODIUM CHLORIDE 0.9 % (FLUSH) 10 ML SYRINGE IVF (08:15)
[2025-06-09] MEDS: MIDAZOLAM HCL 1 MG/ML inj IVP (09:08)
--- NOTE | 2025-06-09 09:17 | SUR.PREOP ---
TIME?OUT:?905,right shoulder PT/RN/MDA?VERIFICATION?OF?SURGICAL?SITE,?PROCEDURE,?AND?CONSENT OBTAINED?PRIOR?TO?INVASIVE?PROCEDURE.
[2025-06-09] MEDS: EPINEPHrine 1 MG in SODIUM CHLORIDE IRRIG SOLUTION 3,000 ML 3001 MG IRRIGATION ×4 (09:47→10:45)
--- NOTE | 2025-06-09 10:07 | P.ANES_ITS ---
Anesthesia Charges Start Date/Time Anesthesia Start Date: 06/09/25 Anesthesia Start Time: 09:17 Stop Date/Time Anesthesia Stop Date: 06/09/25 Anesthesia Stop Time: 11:31 Summary Extremes of Age - Over 70 or under 1: MDA Coding CPT Codes CPT Codes: ANESTH SURGERY OF SHOULDER - 66115 ([id number]) P2 - PATIENT W/MILD SYST DISEASE, QK - CONTACT CENTER CONSULTANT 2-4 CNCRNT ANES PROC, QX - COMMUNITY HEALTH NURSE SUPERVISOR SVC W/ MD MED DIRECTION Additional Codes: Summary - Extremes of Age - Over 70 or under 1: MDA ([id number])
--- NOTE | 2025-06-09 10:07 | W.ANESCHARGE ---
Anesthesia Charges Start Date/Time Anesthesia Start Date: 06/09/25 Anesthesia Start Time: 09:17 Stop Date/Time Anesthesia Stop Date: 06/09/25 Anesthesia Stop Time: 11:31 Summary Extremes of Age - Over 70 or under 1: MDA Coding CPT Codes CPT Codes: ANESTH SURGERY OF SHOULDER - 87747 ([id number]) P2 - PATIENT W/MILD SYST DISEASE, QK - PRINCIPAL ANDROID DEVELOPER 2-4 CNCRNT ANES PROC, QX - GUEST SERVICES ASSOCIATE SVC W/ MD MED DIRECTION Additional Codes: Summary - Extremes of Age - Over 70 or under 1: MDA ([id number])
--- NOTE | 2025-06-09 10:08 | W.PM.NB ---
Nerve Block Nerve Block Time Seen by Provider: 09:08 Date Seen: 06/09/25 Type of block requested by surgeon for post-operative analgesia: supraclavicular Side: right Time out performed: Yes Verification of patient name: Yes Verification of date of : Yes Site marking: site marked Name of person performing procedure: Cecilio Continuous monitoring Was continuous monitoring of O2 sat, B/P, monitoring coordinator, recorded every 15 minutes?: Yes Procedure Checklist: sterile prep, needles and gloves Ultrasound guided. Images saved: Yes Medications given in 5ml increments after negative aspiration: Ropivicaine %: 0.5 mL: 20 Needle gauge: 22 Precedex (mcg): 25 Patient tolerated procedure well: Yes Block Charges Block Charge (with Pro Fee): Brachial Plexus Use of Ultrasound Machine for Block: Yes- US Guidance/pain block
--- NOTE | 2025-06-09 11:22 | P.ORPRC_ITS ---
Procedure Note Date of procedure: 06/09/25 Procedure: PREOPERATIVE DIAGNOSES: 1. Right shoulder rotator cuff tear - full-thickness supraspinatus and anterior portion infraspinatus 2. Right shoulder long head of biceps partial-thickness tearing 3. Right shoulder anterior and superior labral tearing 4. Right shoulder subacromial impingement syndrome. POSTOPERATIVE DIAGNOSES: 1. Right shoulder rotator cuff tear - full-thickness supraspinatus and anterior portion infraspinatus 2. Right shoulder long head of biceps partial-thickness tearing 3. Right shoulder anterior and superior labral tearing 4. Right shoulder subacromial impingement syndrome. NAME OF OPERATION: 1. Right shoulder arthroscopic rotator cuff repair - full-thickness supraspinatus and anterior portion infraspinatus 2. Right shoulder arthroscopic long head of biceps tenodesis 3. Right shoulder arthroscopic limited glenohumeral debridement 4. Right shoulder arthroscopic bursectomy, subacromial decompression/partial acromioplasty. SURGEON: Golden Carey MD METER TESTER PRIMARY: Willard Ng PA-C. Of note, a skilled bilingual sales assistant was critical for this case to aide in patient positioning, suture manipulation, arm positioning, instrument positioning, and closure. ANESTHESIA: General plus preoperative supraclavicular block. EBL: 25 mL IMPLANTS: Arthrex 5.5 mm BioComposite corkscrew suture anchor double loaded (x2); Arthrex 5.5 mm BioComposite SwiveLock suture anchor (x2); Arthrex 2.6 mm knotless FiberTak biceps tenodesis anchor COMPLICATIONS: None evident INDICATIONS: The patient is a pleasant, 80-year-old female who has experienced right shoulder pain that has been increasing in recent time. Physical exam and imaging were consistent with a rotator cuff tear. Given their findings, as well as the weakness and pain, and inadequate response to nonoperative management, recommendation was made for surgery. FINDINGS: Exam under anesthesia revealed stable shoulder with excellent range of motion. 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 The Subscapularis tendon was relatively healthy with a strong attachment/insertion. The long head of the biceps tendon was torn and high-grade partial-thickness manner through the intra-articular portion and had mild subluxation out of the bicipital groove. The superior rotator cuff tendon was found to be torn full-thickness through the entire supraspinatus and anterior portion of the infraspinatus. The labrum was torn in the superior and anterior portions. No loose bodies were identified within the pouch or subscapularis recess. PROCEDURE: Following a thorough discussion of risks, benefits, and alternatives, consent was obtained and the right shoulder was marked. The patient was brought to the operating room and placed supine on the operating table. Induction of anesthesia was completed after preoperative supraclavicular block was administered in preop holding. Appropriate time out was performed identifying proper patient, site, and procedure. 2 g IV Ancef was administered within 1 hour of incision preoperatively. The right upper extremity was prepped and draped in the appropriate sterile fashion using ChloraPrep prep. This was after the patient was positioned in the beach chair with their head in neutral alignment and all bony prominences well padded. The shoulder was insufflated with 20mL of normal saline via an 18g spinal needle from a posterior approach. An 11 blade skin incision allowed a blunt trochar to be inserted and diagnostic arthroscopy to be performed with the findings as noted above. An anterior portal was established with an outside in technique. This allowed the probe to be inserted and confirm the diagnostic arthroscopic findings. The shaver was then inserted and allowed debridement of the anterior and superior labrum. Additionally, the long of the biceps was released from the bicipital tuberosity for arthroscopic tenodesis. The stump was debrided with a shaver. This tenodesis was performed utilizing Arthrex biceps tenodesis FiberTak. The anchor was drilled, placed, and the sutures passed according to the mechanism (blue suture passed around the tendon, white suture loop retrieved through the tendon, and the blue suture passed through the retrieved white loop. The blue was then shuttled, and both the blue and the white were cinched down tight. Following this, the upper border subscapularis was probed and found to be stable. We then entered the subacromial space. Here, a complete bursectomy and partial acromioplasty/subacromial decompression was performed with a combination of radiofrequency ablator, the shaver, and a 5.5 mm bur. Further inspection of the supraspinatus and infraspinatus rotator cuff was performed. This identified the tear as noted above. The margins of the tear were debrided, and the greater tuberosity was debrided with a combination of the apollo cautery, shaver, and bur on reverse setting. After gentle decortication, 25.5 mm corkscrew suture anchors were placed along the medial portion of the tuberosity at the articular edge. As they were double loaded, the 4 tails from each anchor were passed independently. Eventually, these were tied. The tails were then crisscrossed & then brought to 2 separate 5.5 mm SwiveLock suture anchors laterally. A small dog ear in the central aspect was repaired with the eyelet sutures from the anterolateral anchor. The rotator cuff showed exce llent reapproximation of the greater tuberosity with good security upon probing. Prior to anchor route cdl driver removal, the eyelet sutures were tugged on for each anchor and found that the anchor had excellent stability within the bone. The shoulder was placed through range of motion and found to be stable. The rotator cuff was re-probed and found to be stable. Instruments were removed. Excess fluid was drained, closure performed with 4-0 Monocryl and Steri-Strips. Dressings were applied. Sling was applied. The patient was awoken from anesthesia and transferred to the PACU in stable condition. A skilled bilingual sales assistant was critical for this case to aid in patient positioning, limb positioning, skill to manipulate arthroscopic instruments and camera, suture management, patient safety, and closure. PLAN: 1. Elbow, forearm, wrist and digit range of motion as tolerated. 2. Encouraged ice. 3. Tramadol for pain as needed. 4. Sling at all times except for ROM and showering. 5. Follow up with PA visit in 1-2 weeks for wound check. Initiate physical therapy following that visit for passive range of motion. Initiate active assisted range of motion at 4-6 weeks. May do pendulums now.
--- NOTE | 2025-06-09 11:32 | P.ANES_ITS ---
Anesthesia Charges Start Date/Time Anesthesia Start Date: 06/09/25 Anesthesia Start Time: 09:17 Stop Date/Time Anesthesia Stop Date: 06/09/25 Anesthesia Stop Time: 11:31 Summary Extremes of Age - Over 70 or under 1: SHIPPING PROCESSOR Coding CPT Codes CPT Codes: ANESTH SURGERY OF SHOULDER - 84483 ([id number]) P2 - PATIENT W/MILD SYST DISEASE, QK - SYRUP MIXER 2-4 CNCRNT ANES PROC, QX - SHIPPING PROCESSOR SVC W/ MD MED DIRECTION Additional Codes: Summary - Extremes of Age - Over 70 or under 1: SHIPPING PROCESSOR ([id number])
--- NOTE | 2025-06-09 11:32 | W.ANESCHARGE ---
Anesthesia Charges Start Date/Time Anesthesia Start Date: 06/09/25 Anesthesia Start Time: 09:17 Stop Date/Time Anesthesia Stop Date: 06/09/25 Anesthesia Stop Time: 11:31 Summary Extremes of Age - Over 70 or under 1: SHOEMAKER CUSTOM Coding CPT Codes CPT Codes: ANESTH SURGERY OF SHOULDER - 50872 ([id number]) P2 - PATIENT W/MILD SYST DISEASE, QK - SHOP ESTIMATOR 2-4 CNCRNT ANES PROC, QX - SHOEMAKER CUSTOM SVC W/ MD MED DIRECTION Additional Codes: Summary - Extremes of Age - Over 70 or under 1: SHOEMAKER CUSTOM ([id number])
[2025-06-09] MEDS: ALBUTEROL SULFATE 2.5 MG/3 ML VIAL.NEB NEB ×2 (12:24→13:49)
== END 2025-06-09 14:56 | disposition home or self-care (01) ==
LOC: OR 07:10
PROVIDERS: PCP Family Medicine; Visit Provider Orthopaedic Surgery Sports Medicine
PROC: (CPT 29805; principal; 2025-06-09 09:00)
DX: M75.121 Complete rotator cuff tear or rupture of right shoulder, not specified as traumatic (principal); S46.111A Strain of muscle, fascia and tendon of long head of biceps, right arm, initial encounter; S43.431A Superior glenoid labrum lesion of right shoulder, initial encounter; M75.41 Impingement syndrome of right shoulder; G89.18 Other acute postprocedural pain
CPT/HCPCS: 29827; 29828; 29826; 29822; 01630; 64415; 76942; 94640; 99100; C1713; J0169; J0330; J0665; J0690; J1100; J2250; J2405; J2704; J2710; J2795; J3010; J7120; L3670